=== PATIENT | female | born 1955 | race Caucasian/White ===

== ENCOUNTER 2018-09-20 06:31 | Inpatient (IN) | payer OTHER ==
[2018-09-20 07:10] VITALS: BMI 25.4
--- NOTE | 2018-09-20 07:43 | PDOC ---
Attending Attestation - Resident Resident Name: CamiReba bennett - HPI HPI: 09/20/18 18:00 Pt presents to the ED complaining of temporal headache and epigastric pain that started acutely at 3 am. BELLO improved with tylenol IV. Also complaining of mild epigastric pain with nausea and one episode of vomiting. Denies visual or neurologic complaints. Denies fever. Denies prior headache history. 09/23/18 15:22 - Physicial Exam PE: 09/23/18 15:23 Agree with resident exam. patient is well appearing after IV tylenol, and in no acute distress. Neurologically intact. Abdomen soft, non tender and non distended without guarding or rebound. - Medical Decision Making 09/23/18 15:23 Pt presents to thE ED complaining of headache and epigastric pain. CT head performed to look for intracranial bleed and is negative. Given that she had a negative CT within 6 hours of pain onset and that her pain resolved with IV tylenol, subarachnoid is unlikely. Also complaining of epigastric pain, without abdominal tenderness. Biliary labs and lipase were negative, but patient did have an elevated troponin. EKG is normal. Will admit to medicine for NSTEMI.
[2018-09-20] MEDS ORDERED: ONDANSETRON 4 MG/2 ML VIAL IVPB ONE (07:57)
[2018-09-20] MEDS ORDERED: SODIUM CHLORIDE 1,000 ML IV STA (07:57)
[2018-09-20] MEDS ORDERED: ACETAMINOPHEN 1000 MG/100 ML VIAL (NON FORMULARY) IVPB ONE (07:57)
--- NOTE | 2018-09-20 08:05 | PDOC ---
History of Present Illness - General Chief Complaint: Headache Stated Complaint: HEADACHE Time Seen by Provider: 09/20/18 07:39 History Source: Patient, Family (grandson) Exam Limitations: Language Barrier - History of Present Illness Initial Comments: 09/20/18 08:04 63yo F with PMH of HTN, DM, HLD presenting to ED with complaints of R sided BELLO, abdominal pain, n/v x5h. Pt states that she started having the pain at around 3am today. She says the headache and abdominal pain started at around the same time. The headache is R sided, worsened by light and eye movements and the abdominal pain the patient describes as epigastric and lower abdomen which does not radiate. Shes states that she is usually constipated, last BM was last night (non bloody, no melena). She denies fevers, chills, weightloss, cough, chest pain, sob, changes in vision, numbness/tingling. PMD: Matthew PMH: see hpi PSH: Meds: Allergies: nkda Past History - Past Medical History Allergies/Adverse Reactions: Allergies Allergy/AdvReac Type Severity Reaction Status Date / Time No Known Allergies Allergy Verified 09/20/18 07:10 Home Medications: Ambulatory Orders Amlodipine Besylate 5 mg PO DAILY 09/20/18 Aspirin [ASA -] 81 mg PO DAILY 09/20/18 Empagliflozin [Jardiance] 25 mg PO DAILY 09/20/18 Sitagliptin Phos/Metformin HCl [Janumet 50-500 mg Tablet] 1 each PO DAILY Telmisartan 80 mg PO DAILY 09/20/18 COPD: No Diabetes: Yes HTN: Yes - Suicide/Smoking/Psychosocial Hx Smoking History: Never smoked Have you smoked in the past 12 months: No Information on smoking cessation initiated: No Hx Alcohol Use: No Drug/Substance Use Hx: No Review of Systems - Review of Systems Constitutional: No: Chills, Fever, Weakness HEENTM: Yes: See HPI. No: Eye Pain, Blurred Vision, Double Vision Respiratory: No: Symptoms reported Cardiac (ROS): No: Symptoms Reported ABD/GI: Yes: See HPI : No: Symptoms Reported Musculoskeletal: No: Symptoms Reported Integumentary: No: Symptoms Reported Neurological: Yes: See HPI, Headache *Physical Exam - Vital Signs Last Vital Signs Temp Pulse Resp BP Pulse Ox 99.1 F 76 18 153/75 99 09/20/18 06:35 09/20/18 06:35 09/20/18 06:35 09/20/18 06:35 09/20/18 07:31 - Physical Exam General Appearance: Yes: Nourished, Appropriately Dressed, Mild Distress HEENT: positive: EOMI, KYLAH, Normal ENT Inspection, Other (R voodoo ttp) Neck: positive: Trachea midline, Supple. negative: Carotid bruit, Lymphadenopathy (R), Lymphadenopathy (L) Respiratory/Chest: positive: Lungs Clear, Normal Breath Sounds Cardiovascular: positive: Regular Rhythm, Regular Rate, S1, S2. negative: Edema , JVD, Murmur Vascular Pulses: Dorsalis-Pedis (R): 2+, Doralis-Pedis (L): 2+ Gastrointestinal/Abdominal: positive: Normal Bowel Sounds, Soft, Tenderness ( epigastric, llq) Musculoskeletal: negative: CVA Tenderness, Vertebral Tenderness Extremity: positive: Normal Capillary Refill, Pelvis Stable. 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 Pt states that she started having the pain at around 3am today. She says the headache and abdominal pain started at around the same time. The headache is R sided, worsened by light and eye movements and the abdominal pain the patient describes as epigastric and lower abdomen which does not radiate. Shes states that she is usually constipated, last BM was last night (non bloody, no melena). She denies fevers, chills, weightloss, cough, chest pain, sob, changes in vision, numbness/tingling. Vitals: wnl PE: epigstric and LLQ tenderness, no rebound, R voodoo ttp PERRL, no neurological deficits Ddx includes but not limited to GCA, atypical ACS, cholecystitis, mass/ malignancy, pancreatitis, gastroparesis, pud, gastritis, migraine bello, cluster bello , constipation, diverticulosis/diverticulitis, electrolyte/metabolic abnormality BELLO and abdominal pain could be due to same or separate disease process, do not know if abdominal pain is causing headache or vice versa. Will order abdominal labs, crp, esr. -CT head -iv fluids, tylenol, zofran EKG: Rate 71, MD 128, QTc 458. NSR. T wave flattening in all leads. No prior to compare to Will reassess 09/20/18 10:29 Trop 0.06. Still complaining of headache. will give 325mg ASA reasses. Could be having atypical aCS presentation. No prior ekg or trop to compare to, due to age , pmh and trop and ekg, will admit pt for tele/obs for serial troponin and ekg rpt trop 0.07, rpt ekg does not show changes. cardiology consulted. *DC/Admit/Observation/Transfer Diagnosis at time of Disposition: Elevated troponin I level Headache Qualifiers: Headache type: unspecified Headache chronicity pattern: acute headache Intractability: not intractable Qualified Code(s): R51 - Headache - Discharge Dispostion Condition at time of disposition: Fair - Referrals - Patient Instructions - Post Discharge Activity
[2018-09-20] MEDS ORDERED: ACETAMINOPHEN INJECTION 100 ML IVPB ONE (08:06)
[2018-09-20] MEDS ORDERED: ONDANSETRON 4 MG/2 ML VIAL ONE (08:06)
[2018-09-20 08:46] LABS: BASO % 0.6 % (0-2.0); EOS % 0.1 % (0-4.5); HEMATOCRIT 45.9 % (32.4-45.2); HEMOGLOBIN 15.4 GM/dL (10.7-15.3); LYMPH % 9.5 % (8-40); MCH 28.1 pg (25.7-33.7); MCHC 33.6 g/dl (32.0-36.0); MEAN CELL VOLUME 83.5 fl (80-96); MEAN PLT VOLUME 9.1 fl (7.5-11.1); MONO % 3.9 % (3.8-10.2); NEUT % 85.9 % (42.8-82.8); PLATELET COUNT 303 K/MM3 (134-434); RDW 13.2 % (11.6-15.6); WHITE BLOOD COUNT 15.6 K/mm3 (4.0-10.0)
[2018-09-20 09:24] LABS: ALK PHOS 135 U/L (45-117); ANION GAP 10 MMOL/L (8-16); BILIRUBIN,TOTAL 0.5 mg/dL (0.2-1); CALCIUM 9.8 mg/dL (8.5-10.1); CHLORIDE 104 mmol/L (98-107); CO2 23 mmol/L (21-32); CREATININE 0.8 mg/dL (0.55-1.3); GLUCOSE,RANDOM 200 mg/dL (74-106); POTASSIUM 4.5 mmol/L (3.5-5.1); SGOT/AST 26 U/L (15-37); SGPT/ALT 37 U/L (13-61); SODIUM 137 mmol/L (136-145); TOT PROT 8.4 g/dl (6.4-8.2)
[2018-09-20] MEDS ORDERED: ASPIRIN 325 MG TABLET PO ONE (09:58)
[2018-09-20] MEDS ORDERED: ASPIRIN 325 MG ENTERIC COATED TABLET (FP) ONE (10:51)
--- NOTE | 2018-09-20 11:57 | PDOC ---
Documentation entered by Tico Feliz SCRIBE, acting as scribe for Janet Almaraz MD. Janet Almaraz MD: This documentation has been prepared by the Tray smith Joel, SCRIBE, under my direction and personally reviewed by me in its entirety. I confirm that the documentation accurately reflects all work, treatment, procedures, and medical decision making performed by me. Attending Attestation - Resident Resident Name: CamiReba - [facility] HPI: 09/20/18 10:03 The patient is a 63 year old female with a significant PMH of HTN, hyperlipidemia, and DM who presents to the emergency department for evaluation of nausea, vomiting, and headache beginning approximately 7 hours ago. She describes her abdominal pain as localized in the epigastric and lower regions with no radiation. She describes her headache as a right sided sensation with associated photophobia. The patient denies chest pain, shortness of breath, and dizziness. Denies fever, chills, diarrhea and constipation. Denies dysuria, frequency, urgency and hematuria. Allergies: NKA Past surgical history: . Social history: No reported cigarette, alcohol, or drug use. PCP: Dr. Sandor Castro - Physicial Exam PE: 09/20/18 10:58 Agree with resident exam. patient is alert and in no acute distress. Neurologically intact. Abdomen soft, non tender, non distended. CV: rrr no m/r/ g - Medical Decision Making 09/20/18 11:07 Pt presents to the ED complaining of temporal headache and epigastric pain. Initial differential included intracranial bleed,
--- NOTE | 2018-09-20 13:42 | HP ---
CHIEF COMPLAINT: Headache, n/v, abd pain PCP: Dr Sandor Castro- [phone] HISTORY OF PRESENT ILLNESS: Pt is a 63 yo F with PMHx of HTN, HLD, DM, migraine, constipation, PAD, presenting from home with headache, n/v, epigastric pain since 3am today. Pt reports R sided constant headache with associated photophobia, then n and several episodes of vomiting today. Pt also had epigastric pain after the onset of the vomiting which has since subsided. No fevers, no chills. No hematemesis or hematochezia. Last bowel movement today, of brown, non bloody hard stools. Pt follows a chemist organic Dr Uri Benoit, and was worked up in past- nl echo ( August 21 2017), Carotid duplex L occlusion 20%, EKG Feb 2018 nl, Renal US-nl, RLE arterial duplex- Jan 2018 20% occlusion. Pt reports migraines in past relieved with ASA. Last time she had headache as severe was year 1999, when she was kept like overnight and discharged after she felt better with injections. Pt reports exercising regularly, with independent ADLs. Denies smoking, or alcohol. Pt had normal mammogram July 2017, never had colonosocopy or endoscopy. ED D/W Dr Gavin who wants patient admitted for ACS evaluation. ER course was notable for: (1) ASA 324, NS 1L (2) Trops- 0.06>>0.07 (3) WBC-15.6, H/H-15.4/ Recent Travel: Denies recent travel PAST MEDICAL HISTORY: HTN, HLD, DM, migraine, constipation, PAD PAST SURGICAL HISTORY: C/Sction >30 years, appendectomy >30yrs Social History: Smoking: Alcohol: Drugs: Family History: Allergies No Known Allergies Allergy (Verified 09/20/18 07:10) HOME MEDICATIONS: Home Medications Medication Instructions Recorded Alogliptin Clarence/Metformin HCl 1 each PO BID 09/20/18 [Kazano 12.5-500 mg Tablet] Amlodipine Besylate 5 mg PO DAILY 09/20/18 Aspirin [ASA -] 81 mg PO DAILY 09/20/18 Gemfibrozil 600 mg PO DAILY 09/20/18 Insulin Glargine,Hum.rec.anlog 30 unit SQ DAILY 09/20/18 [Perla Messer U-100] Losartan Potassium 100 mg PO 09/20/18 REVIEW OF SYSTEMS CONSTITUTIONAL: Absent: fever, chills, diaphoresis, generalized weakness, malaise, loss of appetite, weight change HEENT: Absent: rhinorrhea, nasal congestion, throat pain, throat swelling, difficulty swallowing, mouth swelling, ear pain, eye pain, visual changes CARDIOVASCULAR: Absent: chest pain, syncope, palpitations, irregular heart rate, lightheadedness , peripheral edema RESPIRATORY: Absent: cough, shortness of breath, dyspnea with exertion, orthopnea, wheezing, stridor, hemoptysis GASTROINTESTINAL:abdominal pain+, nausea+, vomiting+, Absent: abdominal distension, diarrhea, constipation+, melena, hematochezia GENITOURINARY: Absent: dysuria, frequency, urgency, hesitancy, hematuria, flank pain, genital pain MUSCULOSKELETAL: Absent: myalgia, arthralgia, joint swelling, back pain, neck pain SKIN: Absent: rash, itching, pallor HEMATOLOGIC/IMMUNOLOGIC: Absent: easy bleeding, easy bruising, lymphadenopathy, frequent infections ENDOCRINE: Absent: unexplained weight gain, unexplained weight loss, heat intolerance, cold intolerance NEUROLOGIC: headache+ Absent: , focal weakness or paresthesias, dizziness, unsteady gait, seizure, mental status changes, bladder or bowel incontinence PSYCHIATRIC: Absent: anxiety, depression, suicidal or homicidal ideation, hallucinations. PHYSICAL EXAMINATION Vital Signs - 24 hr 09/20/18 09/20/18 06:35 07:31 Temperature 99.1 F Pulse Rate 76 Respiratory 18 Rate Blood Pressure 153/75 O2 Sat by Pulse 98 99 Oximetry (%) GENERAL: Awake, alert, and fully oriented, in no acute distress. Eating lunch HEAD: Normal with no signs of trauma. EYES: Pupils equal, round and reactive to light, extraocular movements intact, sclera anicteric, conjunctiva clear. EARS, NOSE, THROAT: Ears normal, nares patent, oropharynx clear without exudates. Moist mucous membranes. NECK: Normal range of motion, supple without lymphadenopathy, LUNGS: Breath sounds equal, clear to auscultation bilaterally. No wheezes, and no crackles. HEART: Regular rate and rhythm, normal S1 and S2 ABDOMEN: Soft, nontender, not distended, normoactive bowel sounds, JANESSA- external hemorrhoid at 6 0clock position, not thrombosed or bleeding, good anal hygiene, good sphincteric tone, rectal vault without stool, no palpable masses. Gloved finger without stool. MUSCULOSKELETAL: Normal range of motion at all joints. No bony deformities or tenderness. No CVA tenderness. UPPER EXTREMITIES: 2+ pulses, warm, well-perfused. No cyanosis. No clubbing. No peripheral edema. LOWER EXTREMITIES: 2+ pulses, warm, well-perfused. No calf tenderness. No peripheral edema. NEUROLOGICAL: AAO x3, normal tone and reflexes. Plantar reflex downgoing. Cranial nerves II-XII intact. Normal speech. No dysarthria, no dysphasia, no facial droop, no lateralizing signs Laboratory Results - last 24 hr 09/20/18 09/20/18 09/20/18 07:38 07:55 07:55 WBC RBC Hgb Hct MCV MCH MCHC RDW Plt Count MPV Absolute Neuts (auto) Neutrophils % Lymphocytes % Monocytes % Eosinophils % Basophils % Nucleated RBC % ESR 2 Sodium 137 Potassium 4.5 Chloride 104 Carbon Dioxide 23 Anion Gap 10 BUN 14.0 Creatinine 0.8 Est GFR (CKD-EPI)AfAm 91.58 Est GFR (CKD-EPI)NonAf 79.01 Random Glucose 200 H Calcium 9.8 Total Bilirubin 0.5 AST 26 ALT 37 Alkaline Phosphatase 135 H Creatine Kinase 93 Troponin I 0.06 H C-Reactive Protein < 0.3 Total Protein 8.4 H Albumin 4.0 Lipase 66 L Stool Occult Blood 09/20/18 09/20/18 09/20/18 08:15 11:11 13:27 WBC 15.6 H RBC 5.50 H Hgb 15.4 H Hct 45.9 H MCV 83.5 MCH 28.1 MCHC 33.6 RDW 13.2 Plt Count 303 MPV 9.1 Absolute Neuts (auto) 13.4 H Neutrophils % 85.9 H Lymphocytes % 9.5 Monocytes % 3.9 Eosinophils % 0.1 Basophils % 0.6 Nucleated RBC % 0 ESR Sodium Potassium Chloride Carbon Dioxide Anion Gap BUN Creatinine Est GFR (CKD-EPI)AfAm Est GFR (CKD-EPI)NonAf Random Glucose Calcium Total Bilirubin AST ALT Alkaline Phosphatase Creatine Kinase Troponin I 0.07 H C-Reactive Protein Total Protein Albumin Lipase Stool Occult Blood Negative Ambulatory Orders Amlodipine Besylate 5 mg PO DAILY 09/20/18 Aspirin [ASA -] 81 mg PO DAILY 09/20/18 Empagliflozin [Jardiance] 25 mg PO DAILY 09/20/18 Sitagliptin Phos/Metformin HCl [Janumet 50-500 mg Tablet] 1 each PO DAILY Telmisartan 80 mg PO DAILY 09/20/18 ASSESSMENT/PLAN: Pt is a 63 yo F with PMHx of HTN, HLD, DM, migraine, constipation, PAD, presenting from home with headache, n/v, epigastric pain since 3am today. headache Likely migraine headache - unilateral, lasting over 30mins, prior episodes relieved with NSAIDS, this episode relieved with ASA Never formally diagnosed Tylenol Will hold off NSAIDS for now Could be related to nausea and vomiting n/v No more episodes preceeded headache No fever or chills, but WBCs which could be reactive Will monitor CBCs and hold off AB for now Pt reports constipation bit passed stool today and was able to tolerate lunch, not likely bowel obstruction or surgical abdomen Abdoment non tender epigastric pain R/O ACS Pt with high cardiac risk, DM and female could have atypical presentation of chest pain JEAN-PIERRE risk index for ACS-19 (low risk) JEAN-PIERRE score for UA/NSTEMI-2 points (8% risk of all cause mortality, new or recurrent NM or severe recurrent ischemia requiring urgent revascularization) Per pt epigastric pain started after vomiting, will add protonix and maalox PRN trend trops Cardiology follow up ECHO Nuclear stress test Pt may benefit from BB but will hold off in view of stress test Cont ARB, ASA, consider statin HTN Cont home telmisartan HLD Pt reported to have dcd gemfibrozil on her own Will check a lipid in am Will likely benefit from statin DM On janumet and januvia Hold oral hypoglycemics ISS BGM migraine Prior hx May need neuro follow up as out pt constipation Pt not on any laxatives at home Moved bowel today Continue to monitor PAD Per PCP had 20% L carotid occlusion and RLE arterial occlusion 20% FEN No standing fluids- received fluids in ED Monitor lytes, replete as needed Sodium controlled diet now NPO after midnight for possible stress test PPx Lovenox sq PPI/Maalox Tele obs Visit type - Emergency Visit Emergency Visit: Yes ED Registration Date: 09/20/18 Care time: The patient presented to the Emergency Department on the above date and was hospitalized for further evaluation of their emergent condition. - New Patient This patient is new to me today: Yes Date on this admission: 09/20/18 - Critical Care Critical Care patient: No
--- NOTE | 2018-09-20 13:50 | EKG ---
Test Reason : Blood Pressure : / mmHG Vent. Rate : 077 BPM Atrial Rate : 077 BPM P-R Int : 108 ms QRS Dur : 092 ms QT Int : 382 ms P-R-T Axes : 051 018 052 degrees QTc Int : 432 ms SINUS RHYTHM WITH SHORT VT NONSPECIFIC T WAVE ABNORMALITY ABNORMAL ECG WHEN COMPARED WITH ECG OF 20-SEP-2018 07:28, NO SIGNIFICANT CHANGE WAS FOUND Confirmed by MD ALVINA, AFSHAN ([id number]) on 09/20/2018 1:50:12 PM Referred By: Confirmed By:AFSHAN TINSLEY MD
--- NOTE | 2018-09-20 13:52 | EKG ---
Test Reason : Blood Pressure : / mmHG Vent. Rate : 071 BPM Atrial Rate : 071 BPM P-R Int : 128 ms QRS Dur : 088 ms QT Int : 422 ms P-R-T Axes : 067 032 069 degrees QTc Int : 458 ms NORMAL SINUS RHYTHM POSSIBLE LEFT ATRIAL ENLARGEMENT NONSPECIFIC T WAVE ABNORMALITY ABNORMAL ECG WHEN COMPARED WITH ECG OF 27-MAY-2006 11:48, NONSPECIFIC T WAVE ABNORMALITY NOW EVIDENT IN LATERAL LEADS QT HAS LENGTHENED Confirmed by MD ALVINA, AFSHAN ([id number]) on 09/20/2018 1:52:36 PM Referred By: Confirmed By:AFSHAN TINSLEY MD
[2018-09-20] MEDS ORDERED: ACETAMINOPHEN 325 MG TABLET (FP) PO PRN (14:12)
--- NOTE | 2018-09-20 14:38 | PN ---
Teaching Attending Note Name of Resident: Aniyah Schuster ATTENDING PHYSICIAN STATEMENT I saw and evaluated the patient. I reviewed the resident's note and discussed the case with the resident. I agree with the resident's findings and plan as documented with exceptions below. SUBJECTIVE: 63 yof with PMHx of HTN, HLD, NIDDM (prior on insulin, taken off given A1c improved to 8), Migrainous headaches, non obstructive Carotid stenosis, PAD was in her USOH till this AM when woke up with right sided headache, with multiple episodes of non bloody vomiting and epigastric discomfort, more like soreness that started after the vomiting. reports episode similar to her prior migraine headaches, but last one this severe was in 1999. her headache has improved after receiving ASA 325 mg x 1. Epigastric discomfort almost resolved. Exercises for 1 hour on treadmill, twice a week, with no concerns of chest pain or dyspnea. 12 point ROS done, neg for fevers, chills, palpitations, dizziness, dyspnea, or urinary symptoms OBJECTIVE: Vital Signs Period Temp Pulse Resp BP Sys/Puckett Pulse Ox Last 24 Hr 99.1 F 76 18 153/75 98-99 Intake & Output 09/17/18 09/18/18 09/19/18 09/20/18 23:59 23:59 23:59 23:59 Weight 130 lb GENERAL: Awake, alert, and fully oriented, in no acute distress. HEAD: Normal with no signs of trauma. EYES: Pupils equal, round and reactive to light, extraocular movements intact, sclera anicteric, conjunctiva clear. No lid lag. EARS, NOSE, THROAT: Ears normal, nares patent, oropharynx clear without exudates. Moist mucous membranes. NECK: Normal range of motion, supple , no JVD/lymphadenopathy LUNGS: Breath sounds equal, clear to auscultation bilaterally. No wheezes, and no crackles. No accessory muscle use. HEART: Regular rate and rhythm, normal S1 and S2 , no rub or murmur appreciated ABDOMEN: Soft, nontender, not distended, normoactive bowel sounds, no guarding, no rebound, no masses. No hepatomegaly or splenomegaly apprecited. MUSCULOSKELETAL: Normal range of motion at all joints. No bony deformities or tenderness. No CVA tenderness. UPPER EXTREMITIES: 2+ pulses, warm, well-perfused. No cyanosis. No clubbing. No peripheral edema. LOWER EXTREMITIES: 2+ pulses, warm, well-perfused. No calf tenderness. No peripheral edema. NEUROLOGICAL: AAOx3, PERRL, EOMI, Power 5/5, sensation intact and symmetrical, no pronator drift, DTR bilaterally symmetric, toes downgoing, Cranial nerves II- XII intact. Normal speech. gait not observed PSYCHIATRIC: Cooperative. Good eye contact. Appropriate mood and affect. SKIN: Warm, dry, normal turgor, no rashes or lesions noted, normal capillary refill. Home Medications Medication Instructions Recorded Alogliptin Clarence/Metformin HCl 1 each PO BID 09/20/18 [Kazano 12.5-500 mg Tablet] Amlodipine Besylate 5 mg PO DAILY 09/20/18 Aspirin [ASA -] 81 mg PO DAILY 09/20/18 Gemfibrozil 600 mg PO DAILY 09/20/18 Insulin Glargine,Hum.rec.anlog 30 unit SQ DAILY 09/20/18 [Basaglar Kwikpen U-100] Losartan Potassium 100 mg PO 09/20/18 Active Medications Acetaminophen (Tylenol -) 650 mg PO Q6H PRN PRN Reason: PAIN 1-3 Al Hydroxide/Mg Hydroxide (Mylanta Oral Suspension -) 30 ml PO Q6H PRN PRN Reason: DYSPEPSIA Enoxaparin Sodium (Lovenox -) 40 mg SQ DAILY JUAN Insulin Aspart (Novolog Vial Sliding Scale -) 1 vial SQ ACHS [facility]; Protocol Pantoprazole Sodium (Protonix -) 40 mg PO DAILY [facility] Laboratory Results - last 24 hr 09/20/18 09/20/18 09/20/18 07:38 07:55 07:55 WBC RBC Hgb Hct MCV MCH MCHC RDW Plt Count MPV Absolute Neuts (auto) Neutrophils % Lymphocytes % Monocytes % Eosinophils % Basophils % Nucleated RBC % ESR 2 Sodium 137 Potassium 4.5 Chloride 104 Carbon Dioxide 23 Anion Gap 10 BUN 14.0 Creatinine 0.8 Est GFR (CKD-EPI)AfAm 91.58 Est GFR (CKD-EPI)NonAf 79.01 Random Glucose 200 H Calcium 9.8 Total Bilirubin 0.5 AST 26 ALT 37 Alkaline Phosphatase 135 H Creatine Kinase 93 Troponin I 0.06 H C-Reactive Protein < 0.3 Total Protein 8.4 H Albumin 4.0 Lipase 66 L Stool Occult Blood 09/20/18 09/20/18 09/20/18 08:15 11:11 13:27 WBC 15.6 H RBC 5.50 H Hgb 15.4 H Hct 45.9 H MCV 83.5 MCH 28.1 MCHC 33.6 RDW 13.2 Plt Count 303 MPV 9.1 Absolute Neuts (auto) 13.4 H Neutrophils % 85.9 H Lymphocytes % 9.5 Monocytes % 3.9 Eosinophils % 0.1 Basophils % 0.6 Nucleated RBC % 0 ESR Sodium Potassium Chloride Carbon Dioxide Anion Gap BUN Creatinine Est GFR (CKD-EPI)AfAm Est GFR (CKD-EPI)NonAf Random Glucose Calcium Total Bilirubin AST ALT Alkaline Phosphatase Creatine Kinase Troponin I 0.07 H C-Reactive Protein Total Protein Albumin Lipase Stool Occult Blood Negative EKG, NSR, short MS interval Flattened T waves in V4-V6, I/aVL Repeat EKG unchanged CT brain results reivewed, old left thalamic infarct ASSESSMENT AND PLAN: 63 yof with PMHx of HTN, HLD, NIDDM (prior on insulin, taken off given A1c improved to 8), Migrainous headaches, non obstructive Carotid stenosis, PAD admitted with right sided headache, vomiting and epigastric discomfort with borderline elevated troponin -Epigstric pain -Right sided headache -Borderline troponin -Leucocytosis, stress from above, no focal s/s concerning for infection. -Chronic left thalamic CVA -HTN -HLD -NIDDM -Non obstructive Carotid stenosis/PAD Plan: Epigastric symptoms started after vomitting, making gastritis likely. However patient with borderline troponin, risk factors and known evidence of atherosclerotic vascular disease. EKG with lateral changes, that have been unchanged and Tn unchanged x 2. Will continue with tele monitoring, repeat trop. Cardiology consult, Dr. Gavin consulted from the ED. 2D echo, Stress test. Anticipate low threshold for cardiac cath, if further elevation in cardiac biomarkers, EKG changes or abnormal stress test noted. Continue ASA/ARB. Check lipid panel. Will likely benefit from beta blockers but will hold pending stress test. NSAIDs prn for migraines. Trend WBC. Hold jardiance, janumet. ISS, diabetic diet. PPI/maalox/Zofran DVTPPX lovenox Dispo pending clinical course and above testing. Plan discussed with patient in detail, all questions answered. Total admit time spent 65 min.
[2018-09-20] MEDS: PANTOPRAZOLE 40 MG TABLET (FP) PO SCH (14:40)
[2018-09-20] MEDS ORDERED: MAG HYDROX/AL HYDROX/SIMETH 30 ML UNIT-DOSE CUP PO PRN (14:41)
[2018-09-20] MEDS: ENOXAPARIN NA (PORCINE) 40 MG/0.4 ML DISP.SYRIN SQ SCH (14:50)
[2018-09-20] MEDS ORDERED: INSULIN (NOVOLOG) ASPART 100 UNITS/ML 10ML VIAL ONE ×2 (14:52→21:05)
[2018-09-20] MEDS ORDERED: PANTOPRAZOLE 40 MG TABLET (FP) ONE (15:00)
[2018-09-20] MEDS ORDERED: ENOXAPARIN NA (PORCINE) 40 MG/0.4 ML DISP.SYRIN SQ ONE (15:01)
[2018-09-20] MEDS ORDERED: ONDANSETRON 4 MG/2 ML VIAL IVPUSH PRN (15:02)
[2018-09-20] MEDS ORDERED: SODIUM CHLORIDE 1,000 ML IV SCH (15:15)
[2018-09-20] MEDS: INSULIN SLIDING SCALE (NOVOLOG) 1 VIAL SQ SCH ×2 (16:48→21:09)
[2018-09-20] MEDS ORDERED: ASPIRIN 81 MG CHEWABLE TABLETS PO SCH (17:45)
[2018-09-20] MEDS: VALSARTAN 160 MG TABLET (UD) PO SCH (18:52)
[2018-09-20] MEDS: amLODIPine BESYLATE 5 MG TABLET (FP) PO SCH (18:52)
[2018-09-21] MEDS: INSULIN SLIDING SCALE (NOVOLOG) 1 VIAL SQ SCH ×4 (06:06→21:23)
[2018-09-21 07:48] LABS: BASO % 0.7 % (0-2.0); HEMATOCRIT 42.9 % (32.4-45.2); HEMOGLOBIN 14.3 GM/dL (10.7-15.3); MCH 28.4 pg (25.7-33.7); MCHC 33.3 g/dl (32.0-36.0); MEAN CELL VOLUME 85.1 fl (80-96); MEAN PLT VOLUME 9.4 fl (7.5-11.1); MONO % 7.8 % (3.8-10.2); NEUT % 55.5 % (42.8-82.8); PLATELET COUNT 249 K/MM3 (134-434); RBC 5.04 M/mm3 (3.60-5.2); RDW 13.2 % (11.6-15.6); WHITE BLOOD COUNT 8.6 K/mm3 (4.0-10.0)
[2018-09-21 08:30] LABS: BLOOD UREA NITROGEN 11.9 mg/dL (7-18); CALCIUM 8.7 mg/dL (8.5-10.1); CREATININE 0.6 mg/dL (0.55-1.3); MAGNESIUM 2.2 mg/dL (1.8-2.4); PHOSPHOROUS 2.9 mg/dL (2.5-4.9); POTASSIUM 3.9 mmol/L (3.5-5.1)
[2018-09-21] MEDS ORDERED: REGADENOSON 0.4 MG/5 ML PRE-FILLED SYRINGE IVPUSH ONE (09:30)
[2018-09-21] MEDS ORDERED: ASPIRIN 325 MG TABLET PO SCH (10:00)
--- NOTE | 2018-09-21 10:08 | CON.CARD ---
Consult Consult Specialty:: Cardiology - History of Present Illness Chief Complaint: alfonso epigastric discomfort History of Present Illness: 63 yof with PMHx of HTN, HLD, NIDDM (prior on insulin, taken off given A1c improved to 8), Migrainous headaches, non obstructive Carotid stenosis, PAD was in her USOH till this AM when woke up with right sided headache, with multiple episodes of non bloody vomiting and epigastric discomfort, more like soreness that started after the vomiting. reports episode similar to her prior migraine headaches, but last one this severe was in 1999. her headache has improved after receiving ASA 325 mg x 1. Epigastric discomfort almost resolved. Exercises for 1 hour on treadmill, twice a week, with no concerns of chest pain or dyspnea. 12 point ROS done, neg for fevers, chills, palpitations, dizziness, dyspnea, or urinary symptoms - Alcohol/Substance Use Hx Alcohol Use: No - Smoking History Smoking history: Never smoked Have you smoked in the past 12 months: No Home Medications - Allergies Allergies/Adverse Reactions: Allergies Allergy/AdvReac Type Severity Reaction Status Date / Time No Known Allergies Allergy Verified 09/20/18 07:10 - Home Medications Home Medications: Ambulatory Orders Amlodipine Besylate 5 mg PO DAILY 09/20/18 Aspirin [ASA -] 81 mg PO DAILY 09/20/18 Empagliflozin [Jardiance] 25 mg PO DAILY 09/20/18 Sitagliptin Phos/Metformin HCl [Janumet 50-500 mg Tablet] 1 each PO DAILY Telmisartan 80 mg PO DAILY 09/20/18 Review of Systems - Review of Systems Constitutional: reports: No Symptoms Eyes: reports: No Symptoms HENT: reports: No Symptoms Neck: reports: No Symptoms Cardiovascular: reports: No Symptoms Respiratory: reports: No Symptoms Gastrointestinal: reports: No Symptoms Genitourinary: reports: No Symptoms Breasts: reports: No Symptoms Reported Musculoskeletal: reports: No Symptoms Integumentary: reports: No Symptoms Neurological: reports: Headache Endocrine: reports: No Symptoms Hematology/Lymphatic: reports: No Symptoms Psychiatric: reports: No Symptoms Vital Signs: Vital Signs Temperature 98.1 F 09/21/18 06:20 Pulse Rate 71 09/21/18 06:20 Respiratory Rate 17 09/21/18 06:20 Blood Pressure 135/66 09/21/18 06:20 O2 Sat by Pulse Oximetry (%) 99 09/21/18 06:20 Constitutional: Yes: Well Nourished, No Distress, Calm Eyes: Yes: WNL, Conjunctiva Clear, EOM Intact HENT: Yes: WNL, Atraumatic, Normocephalic Neck: Yes: WNL, Supple, Trachea Midline Respiratory: Yes: WNL, Regular, CTA Bilaterally Gastrointestinal: Yes: WNL, Normal Bowel Sounds Renal/: Yes: WNL Cardiovascular: Yes: WNL, Regular Rate and Rhythm Musculoskeletal: Yes: WNL Extremities: Yes: WNL Integumentary: Yes: WNL Neurological: Yes: WNL, Alert, Oriented ...Motor Strength: WNL Psychiatric: Yes: WNL, Alert, Oriented - Other Data Labs, Other Data: CBC, BMP 09/21/18 06:53 09/21/18 06:53 Troponin, BNP 09/20/18 09/20/18 11:11 17:00 Troponin I 0.07 H 0.04 Troponin, BNP 09/20/18 09/20/18 11:11 17:00 Troponin I 0.07 H 0.04 Imaging - Results Chest X-ray: Image Reviewed (no i/e) EKG: Image Reviewed (sr short pr) Problem List - Problems (1) Elevated troponin I level Code(s): R74.8 - ABNORMAL LEVELS OF OTHER SERUM ENZYMES (2) Headache Code(s): R51 - HEADACHE Qualifiers: Headache type: unspecified Headache chronicity pattern: acute headache Intractability: not intractable Qualified Code(s): R51 - Headache Assessment/Plan ASSESSMENT AND PLAN: 63 yof with PMHx of HTN, HLD, NIDDM (prior on insulin, taken off given A1c improved to 8), Migrainous headaches, non obstructive Carotid stenosis, PAD admitted with right sided headache, vomiting and epigastric discomfort with borderline elevated troponin -Epigstric pain -Right sided headache -Borderline troponin -Leucocytosis, stress from above, no focal s/s concerning for infection. -Chronic left thalamic CVA -HTN -HLD -NIDDM -Non obstructive Carotid stenosis/PAD ECHO wnol mibi st moderate sized moderate intensity anterior wall ischemia. Will need c. cath ASA /Plavix/bb
--- NOTE | 2018-09-21 11:52 | ECHO ---
Name: ALISA COLEMANABEL Exam:Adult Echocardiogram Study Date: 09/21/2018 08:04 AM Age: 63 yrs Reason For Study: r/o acs Height: 60 in Weight: 130 lb BSA: 1.6 m2 MMode/2D Measurements & Calculations IVSd: 0.97 cm Ao root diam: 2.2 cm LVIDd: 3.7 cm LA dimension: 2.8 cm LVIDs: 2.2 cm LVPWd: 1.0 cm EDV(Teich): 57.2 ml LVOT diam: 2.0 cm ESV(Teich): 15.8 ml LAV (MOD-bp): 27.0 ml Doppler Measurements & Calculations MV E max oscar: 72.7 cm/sec Ao V2 max: 131.7 cm/sec MV A max oscar: 110.5 cm/sec Ao max P.9 mmHg MV E/A: 0.66 MV dec time: 0.17 sec GABI(V,D): 1.9 cm2 LV V1 max P.8 mmHg TR max oscar: 194.8 cm/sec LV V1 max: 82.9 cm/sec TR max P.4 mmHg PA V2 max: 78.7 cm/sec Med Peak E' Oscar: 5.9 cm/sec PA max P.5 mmHg Med E/e': 12.4 Lat Peak E' Oscar: 4.8 cm/sec Lat E/e': 15.2 PI Vmax: 122.2 cm/sec Procedure A two-dimensional transthoracic echocardiogram with color flow and Doppler was performed. Left Ventricle The left ventricular size, thickness and function are normal. The left ventricular ejection fraction is normal. E/A reversal consistent with but not diagnostic of poor LV compliance. The left ventricular w all motion is normal. Right Ventricle The right ventricle is normal in size and function. Atria Normal left and right atrial size and function. Mitral Valve There is mild mitral valve thickening. There is no mitral valve stenosis. There is trace to mild mitr al regurgitation. Tricuspid Valve There is mild tricuspid valve thickening. There is no tricuspid stenosis. There is mild tricuspid regurgitation. Right ventricular systolic pressure is normal. Aortic Valve The aortic valve is normal in structure and function. No hemodynamically significant valvular aortic stenosis. No aortic regurgitation is present. Pulmonic Valve The pulmonic valve is not well visualized. There is no pulmonic valvular stenosis. Trace pulmonic wilma vular regurgitation. Great Vessels The aortic root is normal size. Pericardium/Pleura There is no pericardial effusion. Interpretation Summary The left ventricular size, thickness and function are normal The left ventricular ejection fraction is normal. The left ventricular wall motion is normal. There is trace to mild mitral regurgitation. There is mild tricuspid regurgitation. Right ventricular systolic pressure is normal. E/A reversal consistent with but not diagnostic of poor LV compliance MD Darrius Gavin 09/21/2018 11:51 AM
[2018-09-21] MEDS: VALSARTAN 160 MG TABLET (UD) PO SCH (13:22)
[2018-09-21] MEDS: amLODIPine BESYLATE 5 MG TABLET (FP) PO SCH (13:23)
[2018-09-21] MEDS: ENOXAPARIN NA (PORCINE) 40 MG/0.4 ML DISP.SYRIN SQ SCH (13:23)
[2018-09-21] MEDS: PANTOPRAZOLE 40 MG TABLET (FP) PO SCH (13:24)
[2018-09-21] MEDS: CLOPIDOGREL BISULFATE 75 MG TABLET (FP) PO SCH (16:40)
[2018-09-21] MEDS: metoPROLOL SUCCINATE 25 MG TAB.SR.24H (FP) PO SCH (16:41)
--- NOTE | 2018-09-21 17:22 | PN ---
Physical Exam: SUBJECTIVE: Patient seen and examined after ECHO and nuclear test. Pt not short of breath, no chest pain, having lunch. OBJECTIVE: Vital Signs Period Temp Pulse Resp BP Sys/Puckett Pulse Ox Last 24 Hr 98.1 F-98.6 F 71-82 17-22 116-135/56-74 98-99 Vital Signs Temp 98.5 F 09/21/18 15:58 Pulse 78 09/21/18 15:58 Resp 22 H 09/21/18 15:58 BP 118/69 09/21/18 15:58 Pulse Ox 98 09/21/18 14:01 Intake & Output 09/20/18 09/21/18 09/21/18 23:59 11:59 23:59 Intake Total 1460 1140 150 Balance 1460 1140 150 Weight 58.967 kg Intake: IV 820 900 150 Normal Saline - 1,000 ml 820 900 150 @ 75 mls/hr IV ASDIR JUAN Rx#:[id number] IVPB 100 Oral 540 240 Other: Voiding Method Toilet Toilet Toilet # Unmeasured Voids Void 2 2 Height 1.52 m Body Mass Index (BMI) 25.4 GENERAL: The patient is awake, alert, and fully oriented, in no acute distress. EYES: PERRL, extraocular movements intact, ENT: moist mucous membranes. NECK: supple. LUNGS: Breath sounds equal, clear to auscultation bilaterally, no wheezes, no crackles HEART: Regular rate and rhythm, S1, S2 ABDOMEN: Soft, nontender, nondistended, normoactive bowel sounds EXTREMITIES: 2+ pulses, warm, well-perfused, no edema. NEUROLOGICAL: Cranial nerves II through XII grossly intact. Normal speech, gait not observed. CBC, BMP 09/21/18 06:53 09/21/18 06:53 Laboratory Results - last 24 hr 09/20/18 09/20/18 09/21/18 17:00 20:58 05:50 WBC RBC Hgb Hct MCV MCH MCHC RDW Plt Count MPV Absolute Neuts (auto) Neutrophils % Lymphocytes % Monocytes % Eosinophils % Basophils % Nucleated RBC % Sodium Potassium Chloride Carbon Dioxide Anion Gap BUN Creatinine Est GFR (CKD-EPI)AfAm Est GFR (CKD-EPI)NonAf POC Glucometer 176 171 Random Glucose Hemoglobin A1c % Calcium Phosphorus Magnesium Troponin I 0.04 Triglycerides Cholesterol Total LDL Cholesterol HDL Cholesterol 09/21/18 09/21/18 09/21/18 06:53 06:53 06:53 WBC 8.6 RBC 5.04 Hgb 14.3 Hct 42.9 MCV 85.1 MCH 28.4 MCHC 33.3 RDW 13.2 Plt Count 249 MPV 9.4 Absolute Neuts (auto) 4.8 Neutrophils % 55.5 D Lymphocytes % 35.0 D Monocytes % 7.8 D Eosinophils % 1.0 D Basophils % 0.7 Nucleated RBC % 0 Sodium 138 Potassium 3.9 Chloride 110 H Carbon Dioxide 21 Anion Gap 6 L BUN 11.9 Creatinine 0.6 Est GFR (CKD-EPI)AfAm 113.22 Est GFR (CKD-EPI)NonAf 97.69 POC Glucometer Random Glucose 167 H Hemoglobin A1c % 7.9 H Calcium 8.7 Phosphorus 2.9 Magnesium 2.2 Troponin I Triglycerides 327 H Cholesterol 280 H Total LDL Cholesterol 191 H HDL Cholesterol 42 09/21/18 13:19 WBC RBC Hgb Hct MCV MCH MCHC RDW Plt Count MPV Absolute Neuts (auto) Neutrophils % Lymphocytes % Monocytes % Eosinophils % Basophils % Nucleated RBC % Sodium Potassium Chloride Carbon Dioxide Anion Gap BUN Creatinine Est GFR (CKD-EPI)AfAm Est GFR (CKD-EPI)NonAf POC Glucometer 150 Random Glucose Hemoglobin A1c % Calcium Phosphorus Magnesium Troponin I Triglycerides Cholesterol Total LDL Cholesterol HDL Cholesterol Active Medications Generic Name Dose Route Start Last Admin Trade Name Freq PRN Reason Stop Dose Admin Acetaminophen 650 mg 09/20/18 14:12 Tylenol - PO Q6H PRN PAIN 1-3 Al Hydroxide/Mg Hydroxide 30 ml 09/20/18 14:41 Mylanta Oral Suspension - PO Q6H PRN DYSPEPSIA Amlodipine Besylate 5 mg 09/20/18 17:45 09/21/18 13:23 Norvasc - PO 5 mg DAILY JUAN Administration Aspirin 81 mg 09/22/18 10:00 Asa - PO DAILY [facility] Clopidogrel Bisulfate 75 mg 09/21/18 15:15 09/21/18 16:40 Plavix - PO 75 mg DAILY JUAN Administration Enoxaparin Sodium 40 mg 09/20/18 14:15 09/21/18 13:23 Lovenox - SQ Not Given DAILY JUAN Insulin Aspart 1 vial 09/20/18 16:30 09/21/18 13:20 Novolog Vial Sliding Scale - SQ Not Given ACHS JUAN Protocol Metoprolol Succinate 25 mg 09/21/18 15:15 09/21/18 16:41 Toprol Xl - PO 25 mg DAILY [facility] Administration Ondansetron HCl 4 mg 09/20/18 15:02 Zofran Injection IVPUSH Q6H PRN NAUSEA AND/OR VOMITING Pantoprazole Sodium 40 mg 09/20/18 14:45 09/21/18 13:24 Protonix - PO 40 mg DAILY [facility] Administration Valsartan 320 mg 09/20/18 17:45 09/21/18 13:22 Diovan - PO 320 mg DAILY [facility] Administration Ambulatory Orders Amlodipine Besylate 5 mg PO DAILY 09/20/18 Aspirin [ASA -] 81 mg PO DAILY 09/20/18 Empagliflozin [Jardiance] 25 mg PO DAILY 09/20/18 Sitagliptin Phos/Metformin HCl [Janumet 50-500 mg Tablet] 1 each PO DAILY Telmisartan 80 mg PO DAILY 09/20/18 Current Medications Acetaminophen (Tylenol -) 650 mg PO Q6H PRN PRN Reason: PAIN 1-3 Al Hydroxide/Mg Hydroxide (Mylanta Oral Suspension -) 30 ml PO Q6H PRN PRN Reason: DYSPEPSIA Amlodipine Besylate (Norvasc -) 5 mg PO DAILY [facility] Last Admin: 09/21/18 13:23 Dose: 5 mg Aspirin (Asa -) 81 mg PO DAILY [facility] Atorvastatin Calcium (Lipitor -) 80 mg PO HS [facility] Clopidogrel Bisulfate (Plavix -) 75 mg PO DAILY [facility] Last Admin: 09/21/18 16:40 Dose: 75 mg Enoxaparin Sodium (Lovenox -) 40 mg SQ DAILY [facility] Last Admin: 09/21/18 13:23 Dose: Not Given Insulin Aspart (Novolog Vial Sliding Scale -) 1 vial SQ [facility]; Protocol Last Admin: 09/21/18 13:20 Dose: Not Given Metoprolol Succinate (Toprol Xl -) 25 mg PO DAILY [facility] Last Admin: 09/21/18 16:41 Dose: 25 mg Ondansetron HCl (Zofran Injection) 4 mg IVPUSH Q6H PRN PRN Reason: NAUSEA AND/OR VOMITING Pantoprazole Sodium (Protonix -) 40 mg PO DAILY [facility] Last Admin: 09/21/18 13:24 Dose: 40 mg Valsartan (Diovan -) 320 mg PO DAILY JUAN Last Admin: 09/21/18 13:22 Dose: 320 mg ECHO-LVsize, thickness and fn-nl. LVEFnl. LVWM is nl. Trace to mild MR. RVSP nl. E/A reversal is consistent with but not diagnostic of poor LV compliance Stress test-reversible anterior ischemia. Pt needs cath ASSESSMENT/PLAN: Pt is a 63 yo F with PMHx of HTN, HLD, DM, migraine, constipation, PAD, presenting from home with headache, n/v, epigastric pain since 3am today. #ACS Pt with reversible anterior wall motion abnormality For cardiac cath likely Wednesday Pt started on DAPT Started on high intensity statin Cont BB, ARB #headache Resolved Likely migraine headache Changed from full dose ASA to ASA 81 with plavix Tylenol #n/v resolved could be related to ACS/ headache zofran prn #epigastric pain R/O ACS Pain resolved Pt with high cardiac risk, DM and female could have atypical presentation of chest pain JEAN-PIERRE risk index for ACS-19 (low risk) JEAN-PIERRE score for UA/NSTEMI-2 points (8% risk of all cause mortality, new or recurrent NV or severe recurrent ischemia requiring urgent revascularization) Cont protonix #HTN Cont home telmisartan, metoprolol #HLD Pt reported to have dcd gemfibrozil on her own Lipitor 80mg added #DM On janumet and januvia at home Hold oral hypoglycemics ISS BGM Monitor for need for basal insulin when eating better #migraine Prior hx May need neuro follow up as out pt #constipation Pt not on any laxatives at home Moved bowel today Continue to monitor #PAD Per PCP had 20% L carotid occlusion and RLE arterial occlusion 20% FEN No standing fluids Monitor lytes, replete as needed Sodium controlled diet now DM/Sodium controlled diet PPx Lovenox sq PPI Tele admit Visit type - Emergency Visit Emergency Visit: Yes ED Registration Date: 09/21/18 Care time: The patient presented to the Emergency Department on the above date and was hospitalized for further evaluation of their emergent condition. - New Patient This patient is new to me today: No - Critical Care Critical Care patient: No - Discharge Referral Referred to [facility] No
--- NOTE | 2018-09-21 17:33 | PN ---
Teaching Attending Note Name of Resident: Aniyah Schuster ATTENDING PHYSICIAN STATEMENT I saw and evaluated the patient. I reviewed the resident's note and discussed the case with the resident. I agree with the resident's findings and plan as documented. SUBJECTIVE: Patient has no complaints. She denies chest pain, palpitations, SOB. OBJECTIVE: Vital Signs Period Temp Pulse Resp BP Sys/Puckett Pulse Ox Last 24 Hr 98.1 F-98.6 F 71-82 17-22 116-135/56-74 98-99 HEART: S1S2, RRR LUNGS: Clear ABDOMEN: Soft, non-tender, non-distended, normal BS EXTREMITIES: No edema Laboratory Results - last 24 hr 09/20/18 09/20/18 09/21/18 17:00 20:58 05:50 WBC RBC Hgb Hct MCV MCH MCHC RDW Plt Count MPV Absolute Neuts (auto) Neutrophils % Lymphocytes % Monocytes % Eosinophils % Basophils % Nucleated RBC % Sodium Potassium Chloride Carbon Dioxide Anion Gap BUN Creatinine Est GFR (CKD-EPI)AfAm Est GFR (CKD-EPI)NonAf POC Glucometer 176 171 Random Glucose Hemoglobin A1c % Calcium Phosphorus Magnesium Troponin I 0.04 Triglycerides Cholesterol Total LDL Cholesterol HDL Cholesterol 09/21/18 09/21/18 09/21/18 06:53 06:53 06:53 WBC 8.6 RBC 5.04 Hgb 14.3 Hct 42.9 MCV 85.1 MCH 28.4 MCHC 33.3 RDW 13.2 Plt Count 249 MPV 9.4 Absolute Neuts (auto) 4.8 Neutrophils % 55.5 D Lymphocytes % 35.0 D Monocytes % 7.8 D Eosinophils % 1.0 D Basophils % 0.7 Nucleated RBC % 0 Sodium 138 Potassium 3.9 Chloride 110 H Carbon Dioxide 21 Anion Gap 6 L BUN 11.9 Creatinine 0.6 Est GFR (CKD-EPI)AfAm 113.22 Est GFR (CKD-EPI)NonAf 97.69 POC Glucometer Random Glucose 167 H Hemoglobin A1c % 7.9 H Calcium 8.7 Phosphorus 2.9 Magnesium 2.2 Troponin I Triglycerides 327 H Cholesterol 280 H Total LDL Cholesterol 191 H HDL Cholesterol 42 09/21/18 13:19 WBC RBC Hgb Hct MCV MCH MCHC RDW Plt Count MPV Absolute Neuts (auto) Neutrophils % Lymphocytes % Monocytes % Eosinophils % Basophils % Nucleated RBC % Sodium Potassium Chloride Carbon Dioxide Anion Gap BUN Creatinine Est GFR (CKD-EPI)AfAm Est GFR (CKD-EPI)NonAf POC Glucometer 150 Random Glucose Hemoglobin A1c % Calcium Phosphorus Magnesium Troponin I Triglycerides Cholesterol Total LDL Cholesterol HDL Cholesterol Current Medications Generic Name Dose Route Start Last Admin Trade Name Freq PRN Reason Stop Dose Admin Acetaminophen 650 mg 09/20/18 14:12 Tylenol - PO Q6H PRN PAIN 1-3 Al Hydroxide/Mg Hydroxide 30 ml 09/20/18 14:41 Mylanta Oral Suspension - PO Q6H PRN DYSPEPSIA Amlodipine Besylate 5 mg 09/20/18 17:45 09/21/18 13:23 Norvasc - PO 5 mg DAILY JUAN Administration Aspirin 81 mg 09/22/18 10:00 Asa - PO DAILY [facility] Clopidogrel Bisulfate 75 mg 09/21/18 15:15 09/21/18 16:40 Plavix - PO 75 mg DAILY JUAN Administration Enoxaparin Sodium 40 mg 09/20/18 14:15 09/21/18 13:23 Lovenox - SQ Not Given DAILY [facility] Insulin Aspart 1 vial 09/20/18 16:30 09/21/18 13:20 Novolog Vial Sliding Scale - SQ Not Given ACHS [facility] Protocol Metoprolol Succinate 25 mg 09/21/18 15:15 09/21/18 16:41 Toprol Xl - PO 25 mg DAILY JUAN Administration Ondansetron HCl 4 mg 09/20/18 15:02 Zofran Injection IVPUSH Q6H PRN NAUSEA AND/OR VOMITING Pantoprazole Sodium 40 mg 09/20/18 14:45 09/21/18 13:24 Protonix - PO 40 mg DAILY JUAN Administration Valsartan 320 mg 09/20/18 17:45 09/21/18 13:22 Diovan - PO 320 mg DAILY JUAN Administration ASSESSMENT AND PLAN: This is a 63 year old woman with a history of HTN, hyperlipidemia, type 2 DM, migraine headaches, non-obstructive carotid disease, PAD who presented to the ED with a headache, epigastric pain, and vomiting. 1. Epigastric abdominal pain with nausea and vomiting - Resolved - Continue Protonix 2. CAD - Nuclear stress shows moderate size moderate intensity anterior wall ischemia, normal wall motion, EF 81% - Continue aspirin, Plavix, Toprol XL - Add Lipitor - Plan for cardiac cath 3. Headache - Resolved 4. Leukocytosis - Resolved - No evidence of infection 5. Old left thalamic CVA - Continue aspirin - Start Lipitor 6. HTN - Continue Diovan, Norvasc, Toprol XL 7. Hyperlipidemia - Start Lipitor 8. Type 2 DM - HgbA1c 7.9 - Luis Victoria - Continue Novolog sliding scale 9. PAD, non-obstructive carotid disease
[2018-09-21] MEDS ORDERED: INSULIN (NOVOLOG) ASPART 100 UNITS/ML 10ML VIAL ONE (21:22)
[2018-09-21] MEDS: ATORVASTATIN CA 80 MG TABLET (FP) PO SCH (21:24)
[2018-09-22] MEDS: INSULIN SLIDING SCALE (NOVOLOG) 1 VIAL SQ SCH ×4 (06:14→21:33)
--- NOTE | 2018-09-22 06:59 | PN ---
Progress Note (short form) - Note Progress Note: Coverage for Dr. Zoey Gavin Chief Complaint: Events noted, notes reviewed, denies any chest pain or dyspnea , plan to transfer for LHC/coronary angiography History of Present Illness: Seen and examined on telemetry. Events noted, notes reviewed, denies any chest pain or dyspnea, plan to transfer for LHC/coronary angiography - Current Medication List Current Medications Acetaminophen (Tylenol -) 650 mg PO Q6H PRN PRN Reason: PAIN 1-3 Al Hydroxide/Mg Hydroxide (Mylanta Oral Suspension -) 30 ml PO Q6H PRN PRN Reason: DYSPEPSIA Amlodipine Besylate (Norvasc -) 5 mg PO DAILY [facility] Last Admin: 09/21/18 13:23 Dose: 5 mg Aspirin (Asa -) 81 mg PO DAILY [facility] Atorvastatin Calcium (Lipitor -) 80 mg PO HS [facility] Last Admin: 09/21/18 21:24 Dose: 80 mg Clopidogrel Bisulfate (Plavix -) 75 mg PO DAILY [facility] Last Admin: 09/21/18 16:40 Dose: 75 mg Enoxaparin Sodium (Lovenox -) 40 mg SQ DAILY [facility] Last Admin: 09/21/18 13:23 Dose: Not Given Insulin Aspart (Novolog Vial Sliding Scale -) [address] [facility]; Protocol Last Admin: 09/22/18 06:14 Dose: 2 units Metoprolol Succinate (Toprol Xl -) 25 mg PO DAILY [facility] Last Admin: 09/21/18 16:41 Dose: 25 mg Ondansetron HCl (Zofran Injection) 4 mg IVPUSH Q6H PRN PRN Reason: NAUSEA AND/OR VOMITING Pantoprazole Sodium (Protonix -) 40 mg PO DAILY [facility] Last Admin: 09/21/18 13:24 Dose: 40 mg Valsartan (Diovan -) 320 mg PO DAILY [facility] Last Admin: 09/21/18 13:22 Dose: 320 mg Review of Systems Cardiovascular: As noted above Respiratory: denies Cough or Sputum Production Gastrointestinal: denies: Nausea, Vomiting, Diarrhea, Constipation or Abdominal Discomfort Musculoskeletal: No Symptoms Reported - Objective Vital Signs: Last Vital Signs Temp Pulse Resp BP Pulse Ox 97.9 F 59 L 20 128/65 98 09/22/18 06:10 09/22/18 06:10 09/22/18 06:10 09/22/18 06:10 09/21/18 20:30 Intake & Output 09/19/18 09/20/18 09/21/18 09/22/18 23:59 23:59 23:59 23:59 Intake Total 1460 1600 10 Balance 1460 1600 10 Weight 130 lb Constitutional: No Distress, Calm Neck: Supple Negative JVD No Bruit Respiratory: Clear to A&P Cardiovascular: S1 S2 Regular Rate Rhythm Gastrointestinal: Soft Benign Normal Bowel Sounds Ext: Negative Edema Labs: CBC, BMP 09/22/18 06:06 09/22/18 06:06 Hepatic Panel Total Bilirubin 0.6 mg/dL (0.2-1) 09/22/18 06:06 AST 18 U/L (15-37) 09/22/18 06:06 ALT 27 U/L (13-61) 09/22/18 06:06 Alkaline Phosphatase 99 U/L (45-117) 09/22/18 06:06 Albumin 3.5 g/dl (3.4-5.0) 09/22/18 06:06 ASSESSMENT: 1. CAD demand ischemia abnormal MPI study angina pectoris as outlined above for C/coronary angiography 2. Diastolic LV dysfunction with clinical class 0 NYHA classification LV failure 3. HTN 4. NIDDM 5. HHypercholesterolemia 6. Carotid atherosclerosis 7. Headache 8. History of CVA PLAN: 1. Continue toprol XL 2. Continue Norvasc 3. Continue Diovan 4. Continue Lipitor 5. Continue ASA and Plavix 6. As outlined above for C/coronary angiography Damon Solares M.D.
--- NOTE | 2018-09-22 07:01 | PN ---
Physical Exam: SUBJECTIVE: Patient seen and examined. No chest pain,no SOB, no epigastric pain , no nausea or vomiting. Pt tolerating diet. Pending transfer for cath likely tomorrow OBJECTIVE: Vital Signs Period Temp Pulse Resp BP Sys/Puckett Pulse Ox Last 24 Hr 97.7 F-99.0 F 59-82 18-22 116-146/65-74 98-98 Vital Signs Temp 99.4 F 09/22/18 17:00 Pulse 67 09/22/18 17:00 Resp 20 09/22/18 17:00 BP 127/63 09/22/18 17:00 Pulse Ox 100 09/22/18 07:00 Intake & Output 09/21/18 09/22/18 09/22/18 23:59 11:59 23:59 Intake Total 460 250 240 Balance 460 250 240 Intake: IV 160 10 Normal Saline - 1,000 ml 150 @ 75 mls/hr IV ASDIR JUAN Rx#:[id number] Saline lock 10 10 Oral 300 240 240 Other: Voiding Method Toilet Toilet Toilet # Unmeasured Voids Void 2 GENERAL: The patient is awake, alert, and fully oriented, in no acute distress. EYES: PERRL, extraocular movements intact ENT: moist mucous membranes. NECK: supple, no JVD. LUNGS: Breath sounds equal, clear to auscultation bilaterally, no wheezes, no crackles HEART: Regular rate and rhythm, S1, S2 ABDOMEN: Soft, nontender, nondistended, normoactive bowel sounds EXTREMITIES: 2+ pulses, warm, well-perfused, no edema. NEUROLOGICAL: Cranial nerves II through XII grossly intact. Normal speech, normal gait PSYCH: Normal mood, normal affect. SKIN: Warm, dry, normal turgor, no rashes or lesions noted CBC, BMP 09/22/18 06:06 09/22/18 06:06 Laboratory Results - last 24 hr 09/21/18 09/21/18 09/21/18 06:53 06:53 06:53 WBC 8.6 RBC 5.04 Hgb 14.3 Hct 42.9 MCV 85.1 MCH 28.4 MCHC 33.3 RDW 13.2 Plt Count 249 MPV 9.4 Absolute Neuts (auto) 4.8 Neutrophils % 55.5 D Lymphocytes % 35.0 D Monocytes % 7.8 D Eosinophils % 1.0 D Basophils % 0.7 Nucleated RBC % 0 Sodium 138 Potassium 3.9 Chloride 110 H Carbon Dioxide 21 Anion Gap 6 L BUN 11.9 Creatinine 0.6 Est GFR (CKD-EPI)AfAm 113.22 Est GFR (CKD-EPI)NonAf 97.69 POC Glucometer Random Glucose 167 H Hemoglobin A1c % 7.9 H Calcium 8.7 Phosphorus 2.9 Magnesium 2.2 Triglycerides 327 H Cholesterol 280 H Total LDL Cholesterol 191 H HDL Cholesterol 42 09/21/18 09/21/18 09/21/18 13:19 17:32 21:19 WBC RBC Hgb Hct MCV MCH MCHC RDW Plt Count MPV Absolute Neuts (auto) Neutrophils % Lymphocytes % Monocytes % Eosinophils % Basophils % Nucleated RBC % Sodium Potassium Chloride Carbon Dioxide Anion Gap BUN Creatinine Est GFR (CKD-EPI)AfAm Est GFR (CKD-EPI)NonAf POC Glucometer 150 192 157 Random Glucose Hemoglobin A1c % Calcium Phosphorus Magnesium Triglycerides Cholesterol Total LDL Cholesterol HDL Cholesterol 09/22/18 06:03 WBC RBC Hgb Hct MCV MCH MCHC RDW Plt Count MPV Absolute Neuts (auto) Neutrophils % Lymphocytes % Monocytes % Eosinophils % Basophils % Nucleated RBC % Sodium Potassium Chloride Carbon Dioxide Anion Gap BUN Creatinine Est GFR (CKD-EPI)AfAm Est GFR (CKD-EPI)NonAf POC Glucometer 199 Random Glucose Hemoglobin A1c % Calcium Phosphorus Magnesium Triglycerides Cholesterol Total LDL Cholesterol HDL Cholesterol Active Medications Generic Name Dose Route Start Last Admin Trade Name Freq PRN Reason Stop Dose Admin Acetaminophen 650 mg 09/20/18 14:12 Tylenol - PO Q6H PRN PAIN 1-3 Al Hydroxide/Mg Hydroxide 30 ml 09/20/18 14:41 Mylanta Oral Suspension - PO Q6H PRN DYSPEPSIA Amlodipine Besylate 5 mg 09/20/18 17:45 09/21/18 13:23 Norvasc - PO 5 mg DAILY JUAN Administration Aspirin 81 mg 09/22/18 10:00 Asa - PO DAILY JUAN Atorvastatin Calcium 80 mg 09/21/18 22:00 09/21/18 21:24 Lipitor - PO 80 mg HS JUAN Administration Clopidogrel Bisulfate 75 mg 09/21/18 15:15 09/21/18 16:40 Plavix - PO 75 mg DAILY JUAN Administration Enoxaparin Sodium 40 mg 09/20/18 14:15 09/21/18 13:23 Lovenox - SQ Not Given DAILY [facility] Insulin Aspart 1 vial 09/20/18 16:30 09/22/18 06:14 Novolog Vial Sliding Scale - SQ 2 units ACHS JUAN Administration Protocol Metoprolol Succinate 25 mg 09/21/18 15:15 09/21/18 16:41 Toprol Xl - PO 25 mg DAILY JUAN Administration Ondansetron HCl 4 mg 09/20/18 15:02 Zofran Injection IVPUSH Q6H PRN NAUSEA AND/OR VOMITING Pantoprazole Sodium 40 mg 09/20/18 14:45 09/21/18 13:24 Protonix - PO 40 mg DAILY JUAN Administration Valsartan 320 mg 09/20/18 17:45 09/21/18 13:22 Diovan - PO 320 mg DAILY JUAN Administration ASSESSMENT/PLAN: Pt is a 63 yo F with PMHx of HTN, HLD, DM, migraine, constipation, PAD, presenting from home with headache, n/v, epigastric pain since 3am today. #ACS Pt with reversible anterior wall motion abnormality For cardiac cath likely Wednesday Pt started on DAPT Started on high intensity statin Cont BB, ARB For transfer for cath #headache Resolved Likely migraine headache Changed from full dose ASA to ASA 81 with plavix Tylenol #n/v resolved could be related to ACS/ headache zofran prn #epigastric pain R/O ACS Pain resolved Pt with high cardiac risk, DM and female could have atypical presentation of chest pain JEAN-PIERRE risk index for ACS-19 (low risk) JEAN-PIERRE score for UA/NSTEMI-2 points (8% risk of all cause mortality, new or recurrent PA or severe recurrent ischemia requiring urgent revascularization) Cont protonix #HTN Cont home telmisartan, metoprolol #HLD Pt reported to have dcd gemfibrozil on her own Lipitor 80mg added #DM On janumet and januvia at home Hold oral hypoglycemics ISS BGM Monitor for need for basal insulin when eating better #migraine Prior hx May need neuro follow up as out pt #constipation Pt not on any laxatives at home Moved bowel today Continue to monitor #PAD Per PCP had 20% L carotid occlusion and RLE arterial occlusion 20% FEN No standing fluids Monitor lytes, replete as needed Sodium controlled diet now DM/Sodium controlled diet PPx Lovenox sq PPI Tele admit Visit type - Emergency Visit Emergency Visit: Yes ED Registration Date: 09/21/18 Care time: The patient presented to the Emergency Department on the above date and was hospitalized for further evaluation of their emergent condition. - New Patient This patient is new to me today: No - Critical Care Critical Care patient: No - Discharge Referral Referred to [facility] No
[2018-09-22 08:00] LABS: BASO % 0.9 % (0-2.0); EOS % 2.1 % (0-4.5); HEMATOCRIT 44.3 % (32.4-45.2); HEMOGLOBIN 14.7 GM/dL (10.7-15.3); LYMPH % 34.8 % (8-40); MCH 28.4 pg (25.7-33.7); MCHC 33.2 g/dl (32.0-36.0); MEAN CELL VOLUME 85.7 fl (80-96); MEAN PLT VOLUME 9.3 fl (7.5-11.1); MONO % 8.6 % (3.8-10.2); NEUT % 53.6 % (42.8-82.8); RBC 5.18 M/mm3 (3.60-5.2); RDW 13.3 % (11.6-15.6); WHITE BLOOD COUNT 8.1 K/mm3 (4.0-10.0)
[2018-09-22 08:33] LABS: ALBUMIN 3.5 g/dl (3.4-5.0); BILIRUBIN,TOTAL 0.6 mg/dL (0.2-1); BLOOD UREA NITROGEN 13.4 mg/dL (7-18); CREATININE 0.7 mg/dL (0.55-1.3); MAGNESIUM 2.3 mg/dL (1.8-2.4); PHOSPHOROUS 3.5 mg/dL (2.5-4.9); POTASSIUM 4.1 mmol/L (3.5-5.1); TOT PROT 7.2 g/dl (6.4-8.2)
[2018-09-22 08:41] LABS: PLATELET COUNT 278 K/MM3 (134-434)
[2018-09-22] MEDS: PANTOPRAZOLE 40 MG TABLET (FP) PO SCH (09:04)
[2018-09-22] MEDS: metoPROLOL SUCCINATE 25 MG TAB.SR.24H (FP) PO SCH (09:04)
[2018-09-22] MEDS: ASPIRIN 81 MG CHEWABLE TABLETS PO SCH (09:04)
[2018-09-22] MEDS: CLOPIDOGREL BISULFATE 75 MG TABLET (FP) PO SCH (09:05)
[2018-09-22] MEDS: ENOXAPARIN NA (PORCINE) 40 MG/0.4 ML DISP.SYRIN SQ SCH (09:05)
[2018-09-22] MEDS: VALSARTAN 160 MG TABLET (UD) PO SCH (09:05)
[2018-09-22] MEDS: amLODIPine BESYLATE 5 MG TABLET (FP) PO SCH (09:05)
[2018-09-22] MEDS ORDERED: DOCUSATE SODIUM 100 MG CAPSULE (FP) PO PRN (09:33)
[2018-09-22] MEDS ORDERED: POLYETHYLENE GLYCOL 3350 119 GM BTL PO SCH (10:00)
--- NOTE | 2018-09-22 10:02 | PN ---
Teaching Attending Note Name of Resident: Aniyah Schuster ATTENDING PHYSICIAN STATEMENT I saw and evaluated the patient. I reviewed the resident's note and discussed the case with the resident. I agree with the resident's findings and plan as documented. SUBJECTIVE:asymptomatic. states BELLO and CP resolved. denies Cp, SOB, fver, chills , N/V/C?D or blurred vision or dizzyness OBJECTIVE: Last Vital Signs Temp Pulse Resp BP Pulse Ox 98.9 F 74 22 H 105/56 L 100 09/22/18 09:45 09/22/18 09:45 09/22/18 09:45 09/22/18 09:45 09/22/18 07:00 General NAD CV S1 S2 RRR no murmur/rub/gallop no chest wall tenderness ASSESSMENT AND PLAN: 63 year old woman with a history of HTN, hyperlipidemia, type 2 DM, migraine headaches, non-obstructive carotid disease, PAD who presented to the ED with a headache, epigastric pain, and vomiting. 1. Epigastric abdominal pain with nausea and vomiting- resolved. could be anginal equivalent. on ppi 2. CAD- no more CP. +NMST with reversible ant wall ischemia. plan to transfer for cath. awaiting on insurance. started on asa/plavix/betablocker/statin. f/u cardio recommendations. 3. Headache- Resolved 4. Leukocytosis- likely reactive. resolved. no signs of infection. 5. Old left thalamic CVA- Continue asa/statin 6. HTN- Continue Diovan, Norvasc, Toprol XL 7. Hyperlipidemia-statin 8. Type 2 DM- HgbA1c 7.9. hold oral agents with pending cath. cont bgm and iss 9. PAD, non-obstructive carotid disease 10,. plan to transfer for cardiac cath. awaiting ins auth
[2018-09-22] MEDS: ATORVASTATIN CA 80 MG TABLET (FP) PO SCH (21:33)
[2018-09-23 06:08] LABS: BASO % 0.9 % (0-2.0); EOS % 1.7 % (0-4.5); HEMATOCRIT 44.2 % (32.4-45.2); HEMOGLOBIN 14.9 GM/dL (10.7-15.3); LYMPH % 42.2 % (8-40); MCH 28.3 pg (25.7-33.7); MCHC 33.8 g/dl (32.0-36.0); MEAN CELL VOLUME 83.9 fl (80-96); MEAN PLT VOLUME 9.1 fl (7.5-11.1); MONO % 7.8 % (3.8-10.2); NEUT % 47.4 % (42.8-82.8); PLATELET COUNT 267 K/MM3 (134-434); RBC 5.27 M/mm3 (3.60-5.2); RDW 13.1 % (11.6-15.6); WHITE BLOOD COUNT 7.3 K/mm3 (4.0-10.0)
[2018-09-23] MEDS: INSULIN SLIDING SCALE (NOVOLOG) 1 VIAL SQ SCH (06:25)
[2018-09-23 06:37] LABS: ALBUMIN 3.4 g/dl (3.4-5.0); BILIRUBIN,TOTAL 0.6 mg/dL (0.2-1); BLOOD UREA NITROGEN 14.8 mg/dL (7-18); CALCIUM 9.2 mg/dL (8.5-10.1); CREATININE 0.7 mg/dL (0.55-1.3); MAGNESIUM 2.2 mg/dL (1.8-2.4); POTASSIUM 4.2 mmol/L (3.5-5.1); TOT PROT 7.1 g/dl (6.4-8.2)
[2018-09-23 06:49] LABS: PHOSPHOROUS 3.4 mg/dL (2.5-4.9)
[2018-09-23] MEDS: ENOXAPARIN NA (PORCINE) 40 MG/0.4 ML DISP.SYRIN SQ SCH (09:30)
[2018-09-23] MEDS: VALSARTAN 160 MG TABLET (UD) PO SCH (09:30)
[2018-09-23] MEDS: ASPIRIN 81 MG CHEWABLE TABLETS PO SCH (09:36)
[2018-09-23] MEDS: metoPROLOL SUCCINATE 25 MG TAB.SR.24H (FP) PO SCH (09:36)
[2018-09-23] MEDS: PANTOPRAZOLE 40 MG TABLET (FP) PO SCH (09:36)
[2018-09-23] MEDS: CLOPIDOGREL BISULFATE 75 MG TABLET (FP) PO SCH (09:36)
[2018-09-23] MEDS: amLODIPine BESYLATE 5 MG TABLET (FP) PO SCH (09:36)
--- NOTE | 2018-09-23 10:01 | PN ---
Physical Exam: SUBJECTIVE: Patient seen and examined OBJECTIVE: Vital Signs Period Temp Pulse Resp BP Sys/Puckett Pulse Ox Last 24 Hr 97.9 F-99.9 F 64-76 20-20 97-146/63-76 98 GENERAL: The patient is awake, alert, and fully oriented, in no acute distress. HEAD: Normal with no signs of trauma. EYES: PERRL, extraocular movements intact, sclera anicteric, conjunctiva clear. No ptosis. ENT: Ears normal, nares patent, oropharynx clear without exudates, moist mucous membranes. NECK: Trachea midline, full range of motion, supple. LUNGS: Breath sounds equal, clear to auscultation bilaterally, no wheezes, no crackles, no accessory muscle use. HEART: Regular rate and rhythm, S1, S2 without murmur, rub or gallop. ABDOMEN: Soft, nontender, nondistended, normoactive bowel sounds, no guarding, no rebound, no hepatosplenomegaly, no masses. EXTREMITIES: 2+ pulses, warm, well-perfused, no edema. NEUROLOGICAL: Cranial nerves II through XII grossly intact. Normal speech, gait not observed. PSYCH: Normal mood, normal affect. SKIN: Warm, dry, normal turgor, no rashes or lesions noted Laboratory Results - last 24 hr 09/22/18 09/22/18 09/22/18 11:53 17:17 21:11 WBC RBC Hgb Hct MCV MCH MCHC RDW Plt Count MPV Absolute Neuts (auto) Neutrophils % Lymphocytes % Monocytes % Eosinophils % Basophils % Nucleated RBC % Sodium Potassium Chloride Carbon Dioxide Anion Gap BUN Creatinine Est GFR (CKD-EPI)AfAm Est GFR (CKD-EPI)NonAf POC Glucometer 192 115 171 Random Glucose Calcium Phosphorus Magnesium Total Bilirubin AST ALT Alkaline Phosphatase Total Protein Albumin 09/23/18 09/23/18 09/23/18 05:36 05:36 06:21 WBC 7.3 RBC 5.27 H Hgb 14.9 Hct 44.2 MCV 83.9 MCH 28.3 MCHC 33.8 RDW 13.1 Plt Count 267 MPV 9.1 Absolute Neuts (auto) 3.5 Neutrophils % 47.4 Lymphocytes % 42.2 H D Monocytes % 7.8 Eosinophils % 1.7 Basophils % 0.9 Nucleated RBC % 0 Sodium 140 Potassium 4.2 Chloride 108 H Carbon Dioxide 25 Anion Gap 7 L BUN 14.8 Creatinine 0.7 Est GFR (CKD-EPI)AfAm 107.62 Est GFR (CKD-EPI)NonAf 92.86 POC Glucometer 175 Random Glucose 165 H Calcium 9.2 Phosphorus 3.4 Magnesium 2.2 Total Bilirubin 0.6 AST 17 ALT 28 Alkaline Phosphatase 95 Total Protein 7.1 Albumin 3.4 Active Medications Generic Name Dose Route Start Last Admin Trade Name Freq PRN Reason Stop Dose Admin Acetaminophen 650 mg 09/20/18 14:12 Tylenol - PO Q6H PRN PAIN 1-3 Al Hydroxide/Mg Hydroxide 30 ml 09/20/18 14:41 Mylanta Oral Suspension - PO Q6H PRN DYSPEPSIA Amlodipine Besylate 5 mg 09/20/18 17:45 09/23/18 09:36 Norvasc - PO 5 mg DAILY JUAN Administration Aspirin 81 mg 09/22/18 10:00 09/23/18 09:36 Asa - PO 81 mg DAILY JUAN Administration Atorvastatin Calcium 80 mg 09/21/18 22:00 09/22/18 21:33 Lipitor - PO 80 mg HS [facility] Administration Clopidogrel Bisulfate 75 mg 09/21/18 15:15 09/23/18 09:36 Plavix - PO 75 mg DAILY JUAN Administration Enoxaparin Sodium 40 mg 09/20/18 14:15 09/23/18 09:30 Lovenox - SQ Not Given DAILY [facility] Insulin Aspart 1 vial 09/20/18 16:30 09/23/18 06:25 Novolog Vial Sliding Scale - SQ Not Given ACHS [facility] Protocol Metoprolol Succinate 25 mg 09/21/18 15:15 09/23/18 09:36 Toprol Xl - PO 25 mg DAILY JUAN Administration Ondansetron HCl 4 mg 09/20/18 15:02 Zofran Injection IVPUSH Q6H PRN NAUSEA AND/OR VOMITING Pantoprazole Sodium 40 mg 09/20/18 14:45 09/23/18 09:36 Protonix - PO 40 mg DAILY JUAN Administration Valsartan 320 mg 09/20/18 17:45 09/23/18 09:30 Diovan - PO Not Given DAILY JUAN Current Medications Acetaminophen (Tylenol -) 650 mg PO Q6H PRN PRN Reason: PAIN 1-3 Al Hydroxide/Mg Hydroxide (Mylanta Oral Suspension -) 30 ml PO Q6H PRN PRN Reason: DYSPEPSIA Amlodipine Besylate (Norvasc -) 5 mg PO DAILY [facility] Last Admin: 09/23/18 09:36 Dose: 5 mg Aspirin (Asa -) 81 mg PO DAILY [facility] Last Admin: 09/23/18 09:36 Dose: 81 mg Atorvastatin Calcium (Lipitor -) 80 mg PO HS [facility] Last Admin: 09/22/18 21:33 Dose: 80 mg Clopidogrel Bisulfate (Plavix -) 75 mg PO DAILY [facility] Last Admin: 09/23/18 09:36 Dose: 75 mg Enoxaparin Sodium (Lovenox -) 40 mg SQ DAILY [facility] Last Admin: 09/23/18 09:30 Dose: Not Given Insulin Aspart (Novolog Vial Sliding Scale -) 1 vial SQ [facility]; Protocol Last Admin: 09/23/18 06:25 Dose: Not Given Metoprolol Succinate (Toprol Xl -) 25 mg PO DAILY [facility] Last Admin: 09/23/18 09:36 Dose: 25 mg Ondansetron HCl (Zofran Injection) 4 mg IVPUSH Q6H PRN PRN Reason: NAUSEA AND/OR VOMITING Pantoprazole Sodium (Protonix -) 40 mg PO DAILY [facility] Last Admin: 09/23/18 09:36 Dose: 40 mg Valsartan (Diovan -) 320 mg PO DAILY [facility] Last Admin: 09/23/18 09:30 Dose: Not Given Ambulatory Orders Amlodipine Besylate 5 mg PO DAILY 09/20/18 Aspirin [ASA -] 81 mg PO DAILY 09/20/18 Empagliflozin [Jardiance] 25 mg PO DAILY 09/20/18 Sitagliptin Phos/Metformin HCl [Janumet 50-500 mg Tablet] 1 each PO DAILY Telmisartan 80 mg PO DAILY 09/20/18 ASSESSMENT/PLAN:
--- NOTE | 2018-09-23 11:05 | PN ---
Teaching Attending Note Name of Resident: Aniyah Schuster ATTENDING PHYSICIAN STATEMENT I saw and evaluated the patient. I reviewed the resident's note and discussed the case with the resident. I agree with the resident's findings and plan as documented with exceptions below. SUBJECTIVE: Patient seen and examined, no further chest pain, epigastric pain, nausea, vomiting, headache or concerns. Feels well. OBJECTIVE: Vital Signs Period Temp Pulse Resp BP Sys/Puckett Pulse Ox Last 24 Hr 97.9 F-99.9 F 64-76 20-20 97-146/63-76 98 Intake & Output 09/20/18 09/21/18 09/22/18 09/23/18 23:59 23:59 23:59 23:59 Intake Total 1460 1600 790 10 Balance 1460 1600 790 10 Weight 130 lb General: sitting in bed in no acute distress Chest:CTAB, no rales or wheezing Abdomen:Soft, obese, NT Extremities: no pablo neck: soft, supple Home Medications Medication Instructions Recorded Amlodipine Besylate 5 mg PO DAILY 09/20/18 Aspirin [ASA -] 81 mg PO DAILY 09/20/18 Empagliflozin [Jardiance] 25 mg PO DAILY 09/20/18 Sitagliptin Phos/Metformin HCl 1 each PO DAILY 09/20/18 [Janumet 50-500 mg Tablet] Telmisartan 80 mg PO DAILY 09/20/18 Active Medications Acetaminophen (Tylenol -) 650 mg PO Q6H PRN PRN Reason: PAIN 1-3 Al Hydroxide/Mg Hydroxide (Mylanta Oral Suspension -) 30 ml PO Q6H PRN PRN Reason: DYSPEPSIA Amlodipine Besylate (Norvasc -) 5 mg PO DAILY [facility] Last Admin: 09/23/18 09:36 Dose: 5 mg Aspirin (Asa -) 81 mg PO DAILY [facility] Last Admin: 09/23/18 09:36 Dose: 81 mg Atorvastatin Calcium (Lipitor -) 80 mg PO [facility] Last Admin: 09/22/18 21:33 Dose: 80 mg Clopidogrel Bisulfate (Plavix -) 75 mg PO DAILY [facility] Last Admin: 09/23/18 09:36 Dose: 75 mg Enoxaparin Sodium (Lovenox -) 40 mg SQ DAILY [facility] Last Admin: 09/23/18 09:30 Dose: Not Given Insulin Aspart (Novolog Vial Sliding Scale -) 1 vial SQ [facility]; Protocol Last Admin: 09/23/18 06:25 Dose: Not Given Metoprolol Succinate (Toprol Xl -) 25 mg PO DAILY [facility] Last Admin: 09/23/18 09:36 Dose: 25 mg Ondansetron HCl (Zofran Injection) 4 mg IVPUSH Q6H PRN PRN Reason: NAUSEA AND/OR VOMITING Pantoprazole Sodium (Protonix -) 40 mg PO DAILY [facility] Last Admin: 09/23/18 09:36 Dose: 40 mg Valsartan (Diovan -) 320 mg PO DAILY [facility] Last Admin: 09/23/18 09:30 Dose: Not Given Laboratory Results - last 24 hr 09/22/18 09/22/18 09/22/18 11:53 17:17 21:11 WBC RBC Hgb Hct MCV MCH MCHC RDW Plt Count MPV Absolute Neuts (auto) Neutrophils % Lymphocytes % Monocytes % Eosinophils % Basophils % Nucleated RBC % Sodium Potassium Chloride Carbon Dioxide Anion Gap BUN Creatinine Est GFR (CKD-EPI)AfAm Est GFR (CKD-EPI)NonAf POC Glucometer 192 115 171 Random Glucose Calcium Phosphorus Magnesium Total Bilirubin AST ALT Alkaline Phosphatase Total Protein Albumin 09/23/18 09/23/18 09/23/18 05:36 05:36 06:21 WBC 7.3 RBC 5.27 H Hgb 14.9 Hct 44.2 MCV 83.9 MCH 28.3 MCHC 33.8 RDW 13.1 Plt Count 267 MPV 9.1 Absolute Neuts (auto) 3.5 Neutrophils % 47.4 Lymphocytes % 42.2 H D Monocytes % 7.8 Eosinophils % 1.7 Basophils % 0.9 Nucleated RBC % 0 Sodium 140 Potassium 4.2 Chloride 108 H Carbon Dioxide 25 Anion Gap 7 L BUN 14.8 Creatinine 0.7 Est GFR (CKD-EPI)AfAm 107.62 Est GFR (CKD-EPI)NonAf 92.86 POC Glucometer 175 Random Glucose 165 H Calcium 9.2 Phosphorus 3.4 Magnesium 2.2 Total Bilirubin 0.6 AST 17 ALT 28 Alkaline Phosphatase 95 Total Protein 7.1 Albumin 3.4 2D echo and stress test results reviewed Telemetry: occasional PVCs ASSESSMENT AND PLAN: 63 yof with PMHx of HTN, HLD, NIDDM (prior on insulin, taken off given A1c improved to 8), Migrainous headaches, non obstructive Carotid stenosis, PAD admitted with right sided headache, vomiting and epigastric discomfort with borderline elevated troponin -Epigstric pain -Right sided headache -Borderline troponin -Leucocytosis, stress from above, no focal s/s concerning for infection. -Chronic left thalamic CVA -HTN -HLD -NIDDM -Non obstructive Carotid stenosis/PAD Plan: Stress pos. Cardiology input noted For transfer to [place] today for cardiac cath. Discussed with Dr. Gavin. Continue ASA/plavix/statin/metoprolol/diovan/amlodipine. Hold oral hypoglycemics for now Transfer to [facility] for cardiac cath and further w/u Discussed with patient, family at bedside and nursing, all questions answered.
[2018-09-23 12:14] VITALS: BP 130/73; PULSE 78; TEMP 98.6
--- NOTE | 2018-09-23 13:10 | PN ---
Progress Note, Physician History of Present Illness: 63 yof with PMHx of HTN, HLD, NIDDM (prior on insulin, taken off given A1c improved to 8), Migrainous headaches, non obstructive Carotid stenosis, PAD was in her USOH till this AM when woke up with right sided headache, with multiple episodes of non bloody vomiting and epigastric discomfort, more like soreness that started after the vomiting. reports episode similar to her prior migraine headaches, but last one this severe was in 1999. her headache has improved after receiving ASA 325 mg x 1. Epigastric discomfort almost resolved. Exercises for 1 hour on treadmill, twice a week, with no concerns of chest pain or dyspnea. 12 point ROS done, neg for fevers, chills, palpitations, dizziness, dyspnea, or urinary symptoms - Objective Vital Signs: Vital Signs Temperature 98.6 F 09/23/18 10:00 Pulse Rate 78 09/23/18 10:00 Respiratory Rate 18 09/23/18 10:00 Blood Pressure 130/73 09/23/18 10:00 O2 Sat by Pulse Oximetry (%) 99 09/23/18 07:00 Eyes: Yes: WNL, Conjunctiva Clear, EOM Intact HENT: Yes: WNL, Atraumatic, Normocephalic Neck: Yes: WNL, Supple, Trachea Midline Cardiovascular: Yes: WNL, Regular Rate and Rhythm Respiratory: Yes: WNL, Regular, CTA Bilaterally Gastrointestinal: Yes: WNL, Normal Bowel Sounds Genitourinary: Yes: WNL Musculoskeletal: Yes: WNL Extremities: Yes: WNL Edema: No Integumentary: Yes: WNL Neurological: Yes: WNL, Alert, Oriented ...Motor Strength: WNL Psychiatric: Yes: WNL Labs: CBC, BMP 09/23/18 05:36 09/23/18 05:36 Problem List - Problems (1) Elevated troponin I level Code(s): R74.8 - ABNORMAL LEVELS OF OTHER SERUM ENZYMES (2) Headache Code(s): R51 - HEADACHE Qualifiers: Headache type: unspecified Headache chronicity pattern: acute headache Intractability: not intractable Qualified Code(s): R51 - Headache Assessment/Plan ASSESSMENT AND PLAN: 63 yof with PMHx of HTN, HLD, NIDDM (prior on insulin, taken off given A1c improved to 8), Migrainous headaches, non obstructive Carotid stenosis, PAD admitted with right sided headache, vomiting and epigastric discomfort with borderline elevated troponin -Epigstric pain -Right sided headache -Borderline troponin -Leucocytosis, stress from above, no focal s/s concerning for infection. -Chronic left thalamic CVA -HTN -HLD -NIDDM -Non obstructive Carotid stenosis/PAD ECHO wnol mibi st moderate sized moderate intensity anterior wall ischemia. Will need c. cath ASA /Plavix/bb
--- NOTE | 2018-09-24 05:05 | DS ---
Physical Exam: SUBJECTIVE: Patient seen and examined. No chest pain, no epigastric pain, no SOB of breath, no headache. To be transferred for cardiac catheter to [facility] OBJECTIVE: Vital Signs Period Temp Pulse Resp BP Sys/Puckett Pulse Ox Last 24 Hr 97.9 F-98.6 F 68-78 18-20 130-139/69-73 99 PHYSICAL EXAM GENERAL: The patient is awake, alert, and fully oriented, in no acute distress. NECK: supple, No JVD. LUNGS: Breath sounds equal, clear to auscultation bilaterally, no wheezes, no crackles HEART: Regular rate and rhythm, S1, S2 ABDOMEN: Soft, nontender, nondistended, normoactive bowel sounds EXTREMITIES: 2+ pulses, warm, well-perfused, no edema. NEUROLOGICAL: Cranial nerves II through XII grossly intact. Normal speech, normal gait, no lateralizing signs LABS Laboratory Results - last 24 hr 09/23/18 09/23/18 09/23/18 05:36 05:36 06:21 WBC 7.3 RBC 5.27 H Hgb 14.9 Hct 44.2 MCV 83.9 MCH 28.3 MCHC 33.8 RDW 13.1 Plt Count 267 MPV 9.1 Absolute Neuts (auto) 3.5 Neutrophils % 47.4 Lymphocytes % 42.2 H D Monocytes % 7.8 Eosinophils % 1.7 Basophils % 0.9 Nucleated RBC % 0 Sodium 140 Potassium 4.2 Chloride 108 H Carbon Dioxide 25 Anion Gap 7 L BUN 14.8 Creatinine 0.7 Est GFR (CKD-EPI)AfAm 107.62 Est GFR (CKD-EPI)NonAf 92.86 POC Glucometer 175 Random Glucose 165 H Calcium 9.2 Phosphorus 3.4 Magnesium 2.2 Total Bilirubin 0.6 AST 17 ALT 28 Alkaline Phosphatase 95 Total Protein 7.1 Albumin 3.4 09/23/18 11:48 WBC RBC Hgb Hct MCV MCH MCHC RDW Plt Count MPV Absolute Neuts (auto) Neutrophils % Lymphocytes % Monocytes % Eosinophils % Basophils % Nucleated RBC % Sodium Potassium Chloride Carbon Dioxide Anion Gap BUN Creatinine Est GFR (CKD-EPI)AfAm Est GFR (CKD-EPI)NonAf POC Glucometer 181 Random Glucose Calcium Phosphorus Magnesium Total Bilirubin AST ALT Alkaline Phosphatase Total Protein Albumin Current Medications Acetaminophen (Tylenol -) 650 mg PO Q6H PRN PRN Reason: PAIN 1-3 Al Hydroxide/Mg Hydroxide (Mylanta Oral Suspension -) 30 ml PO Q6H PRN PRN Reason: DYSPEPSIA Amlodipine Besylate (Norvasc -) 5 mg PO DAILY [facility] Last Admin: 09/23/18 09:36 Dose: 5 mg Aspirin (Asa -) 81 mg PO DAILY [facility] Last Admin: 09/23/18 09:36 Dose: 81 mg Atorvastatin Calcium (Lipitor -) 80 mg PO HS [facility] Last Admin: 09/22/18 21:33 Dose: 80 mg Clopidogrel Bisulfate (Plavix -) 75 mg PO DAILY [facility] Last Admin: 09/23/18 09:36 Dose: 75 mg Enoxaparin Sodium (Lovenox -) 40 mg SQ DAILY [facility] Last Admin: 09/23/18 09:30 Dose: Not Given Insulin Aspart (Novolog Vial Sliding Scale -) 1 vial SQ [facility]; Protocol Last Admin: 09/23/18 06:25 Dose: Not Given Metoprolol Succinate (Toprol Xl -) 25 mg PO DAILY [facility] Last Admin: 09/23/18 09:36 Dose: 25 mg Ondansetron HCl (Zofran Injection) 4 mg IVPUSH Q6H PRN PRN Reason: NAUSEA AND/OR VOMITING Pantoprazole Sodium (Protonix -) 40 mg PO DAILY [facility] Last Admin: 09/23/18 09:36 Dose: 40 mg Valsartan (Diovan -) 320 mg PO DAILY [facility] Last Admin: 09/23/18 09:30 Dose: Not Given Ambulatory Orders Amlodipine Besylate 5 mg PO DAILY 09/20/18 Aspirin [ASA -] 81 mg PO DAILY 09/20/18 Empagliflozin [Jardiance] 25 mg PO DAILY 09/20/18 Sitagliptin Phos/Metformin HCl [Janumet 50-500 mg Tablet] 1 each PO DAILY Telmisartan 80 mg PO DAILY 09/20/18 ECHO 09/21/18-LVsize, thickness and fn-nl. LVEFnl. LVWM is nl. Trace to mild MR. RVSP nl. E/A reversal is consistent with but not diagnostic of poor LV compliance Stress test 09/21/18-reversible anterior ischemia. Pt needs cath HOSPITAL COURSE: Date of Admission:09/21/18 Date of Discharge: 09/24/18 Pt is a 63 yo F with PMHx of HTN, HLD, DM, migraine, constipation, PAD, presenting from home with headache, n/v, epigastric pain since 3am today. Pt was evaluated for atypical chest pain, and found to have reversible anterior wall motion abnormality. She was started on DAPT, high intensity statin and continued on BB, ARB. Her headache resolved with tylenol and the n/v resolved. She was transferred to [facility] for cardiac catheterization. Minutes to complete discharge: 39 Discharge Summary Reason For Visit: HEADACHE Condition: Stable - Instructions Diet, Activity, Other Instructions: You came in with epigastric pain and got a nuclear stress test done. It showed signs of changes in the heart. We are transferring you to [facility] to get a cardiac catheter We are continuing you on: Acetaminophen (Tylenol -) 650 mg PO Q6H PRN PRN Reason: PAIN 1-3 Al Hydroxide/Mg Hydroxide (Mylanta Oral Suspension -) 30 ml PO Q6H PRN PRN Reason: DYSPEPSIA Amlodipine Besylate (Norvasc -) 5 mg PO DAILY [facility] Last Admin: 09/23/18 09:36 Dose: 5 mg Aspirin (Asa -) 81 mg PO DAILY [facility] Last Admin: 09/23/18 09:36 Dose: 81 mg Atorvastatin Calcium (Lipitor -) 80 mg PO HS [facility] Last Admin: 09/22/18 21:33 Dose: 80 mg Clopidogrel Bisulfate (Plavix -) 75 mg PO DAILY [facility] Last Admin: 09/23/18 09:36 Dose: 75 mg Enoxaparin Sodium (Lovenox -) 40 mg SQ DAILY [facility] Last Admin: 09/23/18 09:30 Dose: Not Given Insulin Aspart (Novolog Vial Sliding Scale -) 1 vial SQ [facility]; Protocol Last Admin: 09/23/18 06:25 Dose: Not Given Metoprolol Succinate (Toprol Xl -) 25 mg PO DAILY [facility] Last Admin: 09/23/18 09:36 Dose: 25 mg Ondansetron HCl (Zofran Injection) 4 mg IVPUSH Q6H PRN PRN Reason: NAUSEA AND/OR VOMITING Pantoprazole Sodium (Protonix -) 40 mg PO DAILY [facility] Last Admin: 09/23/18 09:36 Dose: 40 mg Valsartan (Diovan -) 320 mg PO DAILY [facility] Last Admin: 09/23/18 09:30 Dose: Not Given Your home medications were: Amlodipine Besylate 5 mg PO DAILY Aspirin [ASA -] 81 mg PO DAILY Empagliflozin [Jardiance] 25 mg PO DAILY Sitagliptin Phos/Metformin HCl [Janumet 50-500 mg Tablet] 1 each PO DAILY Telmisartan 80 mg PO DAILY Disposition: TRANSFER ACUTE CARE/OTHER HOSP - Home Medications Comprehensive Discharge Medication List: Ambulatory Orders Amlodipine Besylate 5 mg PO DAILY 09/20/18 Telmisartan 80 mg PO DAILY 09/20/18 Acetaminophen [Tylenol .Regular Strength -] 650 mg PO Q6H PRN tablet 09/23/18 Amlodipine Besylate [Norvasc -] 5 mg PO DAILY tablet 09/23/18 Aspirin [ASA -] 81 mg PO DAILY tab.chew 09/23/18 Atorvastatin Ca [Lipitor] 80 mg PO HS tablet 09/23/18 Clopidogrel Bisulfate [Plavix -] 75 mg PO DAILY tablet 09/23/18 Docusate Sodium [Colace -] 100 mg PO BID PRN capsule 09/23/18 Enoxaparin [Lovenox -] 40 mg SQ DAILY disp.syrin 09/23/18 Insulin Sliding Scale [Novolog Vial Sliding Scale -] 1 vial SQ ACHS units 09/23 Mag Hydrox/Al Hydrox/Simeth [Mylanta Oral Suspension -] 30 ml PO Q6H PRN cup Metoprolol Succinate [Toprol XL -] 25 mg PO DAILY tab.sr.24h 09/23/18 Ondansetron Injection [Zofran Injection] 4 mg IVPUSH Q6H PRN vial 09/23/18 Pantoprazole Sodium [Protonix -] 40 mg PO DAILY tablet.ec 09/23/18 Polyethylene Glycol 3350 [Miralax 119 gm Btl -] 17 gm PO BID bottle 09/23/18 This patient is new to me today: No Emergency Visit: Yes ED Registration Date: 09/21/18 Care time: The patient presented to the Emergency Department on the above date and was hospitalized for further evaluation of their emergent condition. Critical Care patient: No - Discharge Referral Referred to [facility] Med P.C.: No
== END 2018-09-23 12:20 | disposition short-term general hospital (02) | DRG 198 ==
LOC: JER 06:31 → JERBED 10:23 → J4W 15:36 → OBSVTOIN 09-21 15:34
PROVIDERS: ADMIT Hospitalist; ATTEND Hospitalist
DX: I25.119 Atherosclerotic heart disease of native coronary artery with unspecified angina pectoris (principal); I24.8 Other forms of acute ischemic heart disease; I65.22 Occlusion and stenosis of left carotid artery; E11.51 Type 2 diabetes mellitus with diabetic peripheral angiopathy without gangrene; I10 Essential (primary) hypertension; E78.5 Hyperlipidemia, unspecified; G43.909 Migraine, unspecified, not intractable, without status migrainosus; R11.2 Nausea with vomiting, unspecified; K59.00 Constipation, unspecified; Z86.73 Personal history of transient ischemic attack (TIA), and cerebral infarction without residual deficits; D72.829 Elevated white blood cell count, unspecified; Z79.84 Long term (current) use of oral hypoglycemic drugs; R74.8 Abnormal levels of other serum enzymes; K29.60 Other gastritis without bleeding
CPT/HCPCS: 36415; 70450-TC; 71045-TC-FY; 78452-TC; 80048; 80053; 80061; 82272; 82550; 82962; 83036; 83690; 83721; 83735; 84100; 84484; 85025; 85651; 86140; 93005; 93010; 93017; 93306-TC; 99283-25; A9502; G0378; J0131; J7030

== ENCOUNTER 2019-09-30 10:52 | Inpatient (IN) | payer OTHER ==
[2019-09-30 11:49] LABS: BASO % 0.6 % (0-2.0); EOS % 1.5 % (0-4.5); HEMATOCRIT 44.6 % (32.4-45.2); HEMOGLOBIN 14.7 GM/dL (10.7-15.3); LYMPH % 18.6 % (8-40); MCH 28.1 pg (25.7-33.7); MEAN CELL VOLUME 85.3 fl (80-96); MEAN PLT VOLUME 9.9 fl (7.5-11.1); MONO % 5.2 % (3.8-10.2); NEUT % 74.1 % (42.8-82.8); PLATELET COUNT 270 K/MM3 (134-434); RBC 5.23 M/mm3 (3.60-5.2); RDW 13.5 % (11.6-15.6); WHITE BLOOD COUNT 12.5 K/mm3 (4.0-10.0)
[2019-09-30 11:56] LABS: INR 1.02 (0.83-1.09)
[2019-09-30 11:58] LABS: ACTIVATED PTT 32.1 SECONDS (25.2-36.5)
[2019-09-30 12:19] LABS: ALBUMIN 3.5 g/dl (3.4-5.0); ALK PHOS 106 U/L (45-117); ANION GAP 4 MMOL/L (8-16); BILIRUBIN,TOTAL 0.6 mg/dL (0.2-1); BLOOD UREA NITROGEN 12.5 mg/dL (7-18); CALCIUM 9.6 mg/dL (8.5-10.1); CHLORIDE 105 mmol/L (98-107); CO2 24 mmol/L (21-32); CREATININE 0.8 mg/dL (0.55-1.3); GLUCOSE,RANDOM 154 mg/dL (74-106); SGOT/AST 99 U/L (15-37); SGPT/ALT 60 U/L (13-61); SODIUM 133 mmol/L (136-145); TOT PROT 7.9 g/dl (6.4-8.2)
[2019-09-30 12:20] LABS: POTASSIUM > 10.0 mmol/L (3.5-5.1)
[2019-09-30 12:29] LABS: CHOLESTEROL 170 mg/dL (50-200); HDL CHOLESTEROL 40 mg/dL (40-60); LDL CHOLESTEROL (ONLY SJRH) 101 mg/dL (5-100); TRIGLYCERIDES 258 mg/dL (0-150)
[2019-09-30] MEDS ORDERED: ASPIRIN 325 MG TABLET PO ONE (12:45)
[2019-09-30] MEDS ORDERED: ATORVASTATIN CA 40 MG TABLET (FP) PO ONE ×2 (12:47→17:24)
--- NOTE | 2019-09-30 13:38 | PDOC ---
Documentation entered by Antwon Schmidt SCRIBE, acting as scribe for Luis Eduardo Redding MD. Luis Eduardo Redding MD: This documentation has been prepared by the luis, Antwon Schmidt SCRIBE, under my direction and personally reviewed by me in its entirety. I confirm that the documentation accurately reflects all work, treatment, procedures, and medical decision making performed by me. Attending Attestation - Resident Resident Name: LarryJorgito - ED Attending Attestation I have performed the following: I have examined & evaluated the patient, The case was reviewed & discussed with the resident, I agree w/resident's findings & plan, Exceptions are as noted - HPI HPI: 09/30/19 13:35 The patient is a 64 year old female with a significant past medical history of CVA (1 month ago, on Lovenox) with residual right sided weakness, HTN, HLD, DM, and migraines who presents to the ED, BIBA,with lip numbness and tingling and worsened right upper and lower extremity weakness that began at 2am. Patient reports she went to sleep at 11pm last night without any symptoms and woke up with the numbness/tingling at 2am. Patient reports she was unable to walk, lightheaded, and experiencing general weakness. The patient denies chest pain and shortness of breath. Denies fever, chills and/or any GI symptoms. Denies any symptoms. Surgical Hx: 2x stent Allergies: NKDA - Physicial Exam PE: 09/30/19 12:23 See resident exam - Medical Decision Making 09/30/19 13:39 64 F with worsening weakness and new numbness/tingling. Concerning for acute CVA. Pt outside window for TPA. - Labs - CT head - Neuro c/s Discharge - Discharge Information Problems reviewed: Yes Clinical Impression/Diagnosis: CVA (cerebral vascular accident) Qualifiers: CVA mechanism: unspecified Qualified Code(s): I63.9 - Cerebral infarction, unspecified - Follow up/Referral - Patient Discharge Instructions - Post Discharge Activity
[2019-09-30] MEDS ORDERED: ASPIRIN 81 MG CHEWABLE TABLETS ONE (13:50)
[2019-09-30] MEDS ORDERED: ATORVASTATIN CA 80 MG TABLET (FP) ONE (13:51)
[2019-09-30 14:03] LABS: BLOOD UREA NITROGEN 11.4 mg/dL (7-18); CREATININE 0.7 mg/dL (0.55-1.3); POTASSIUM 4.6 mmol/L (3.5-5.1)
--- NOTE | 2019-09-30 17:37 | HP ---
CHIEF COMPLAINT: L sided facial weakness w/ dysarthria HISTORY OF PRESENT ILLNESS: 64 F h/o CAD S/P cath (stent) 2019, HTN, T2DM, HLD, migraine headaches, CVA w/ R sided residual weakness/numbness wakes up today when daughter noticed she was slurring her speech and L side of face was weak and assymetrical as compared to R side. Patient was rushed to ED, where CT head was done negative for bleed. Was at [facility] 2 weeks ago for prior CVA. At [facility] pt. given lovenox SC daily where she developed wheel-like urticarial rash on abdomen which is itchy. Otherwise pt. denies fever/chills/SOB/cough/travel/outdoor activity/Cp/SOB/LOC, but endorses double vision and dizzienss. Dr. Wiley notified who recommended MRI/ASA/high intensity statin and treatment for new CVA. ER course was notable for: (1) neg new findings on CT head (2) MRi pending (3) ASA/statin given Recent Travel: denies PAST MEDICAL HISTORY: as above PAST SURGICAL HISTORY: PCI w/ stent 2019 Social History: denies x3 Allergies No Known Allergies Allergy (Verified 09/01/19 19:12) HOME MEDICATIONS: Home Medications Medication Instructions Recorded Clopidogrel Bisulfate [Plavix -] 75 mg PO DAILY tablet 09/23/18 Metoprolol Succinate [Toprol XL -] 25 mg PO DAILY tab.sr.24h 09/23/18 Farxiga 10 mg PO DAILY 09/01/19 Gemfibrozil 600 mg PO DAILY 09/01/19 Aspirin [Aspirin EC] 81 mg PO DAILY 09/02/19 Atorvastatin Ca [Lipitor] 40 mg PO HS 09/02/19 Enalapril Maleate [Vasotec -] 30 mg PO DAILY #30 tablet 09/04/19 Lancets [Lancets Thin] 1 each MC DAILY #100 each 09/04/19 Miscellaneous Medical Supply 1 each SQ ASDIR #1 kit 09/04/19 [Glucometer Device] Miscellaneous Medical Supply 1 each SQ ASDIR #1 box 09/04/19 [Glucometer Test Strips #100] Sitagliptin Phos/Metformin HCl 1 tab PO DAILY #30 tab 09/04/19 [Janumet Xr 100-1,000 mg Tablet] PHYSICAL EXAMINATION Vital Signs - 24 hr 09/30/19 09/30/19 09/30/19 11:24 11:35 13:23 Temperature 98.1 F 98.4 F Pulse Rate 75 Pulse Rate [ 66 Apical] Respiratory 17 19 Rate Blood Pressure 122/72 Blood Pressure 132/62 [Right Arm] O2 Sat by Pulse 98 100 100 Oximetry (%) GENERAL: Awake, alert, and fully oriented, tired appearing HEENT NC/AT, L eyelid droop with abduction of L eye does not cross midline, pupils ERLA, neck supple, L nasolabial fold flattening, L mouth droop w/ sparing of forehead LUNGS: Breath sounds equal, clear to auscultation bilaterally. No wheezes, and no crackles. No accessory muscle use. HEART: Regular rate and rhythm, normal S1 and S2 without murmur, rub or gallop. ABDOMEN: Soft, nontender, not distended, normoactive bowel sounds, no guarding, no rebound, no masses. wheel-like urticarial rash (possibly from previous Lovenox injection sites) involving both sides of abdomen MUSCULOSKELETAL: Normal range of motion at all joints. No bony deformities or tenderness. No CVA tenderness. UPPER EXTREMITIES: 2+ pulses, warm, well-perfused. No cyanosis. No clubbing. No peripheral edema. LOWER EXTREMITIES: 2+ pulses, warm, well-perfused. No calf tenderness. No peripheral edema. Moves all 4 extremities. PSYCHIATRIC: Cooperative. Good eye contact. Appropriate mood and affect. SKIN: Warm, dry, normal turgor, no rashes or lesions noted, normal capillary refill. Laboratory Results - last 24 hr 09/30/19 09/30/19 09/30/19 11:30 11:30 11:30 WBC 12.5 H RBC 5.23 H Hgb 14.7 Hct 44.6 MCV 85.3 MCH 28.1 MCHC 33.0 RDW 13.5 Plt Count 270 MPV 9.9 Absolute Neuts (auto) 9.3 H Neutrophils % 74.1 D Lymphocytes % 18.6 D Monocytes % 5.2 Eosinophils % 1.5 Basophils % 0.6 Nucleated RBC % 0 PT with INR 12.00 INR 1.02 PTT (Actin FS) 32.1 Sodium Potassium Chloride Carbon Dioxide Anion Gap BUN Creatinine Est GFR (CKD-EPI)AfAm Est GFR (CKD-EPI)NonAf Random Glucose Calcium Total Bilirubin AST ALT Alkaline Phosphatase Creatine Kinase Creatine Kinase Index CK-MB (CK-2) Troponin I Total Protein Albumin Triglycerides 258 H Cholesterol 170 Total LDL Cholesterol 101 H HDL Cholesterol 40 Blood Type Antibody Screen 09/30/19 09/30/19 09/30/19 11:30 11:30 12:50 WBC RBC Hgb Hct MCV MCH MCHC RDW Plt Count MPV Absolute Neuts (auto) Neutrophils % Lymphocytes % Monocytes % Eosinophils % Basophils % Nucleated RBC % PT with INR INR PTT (Actin FS) Sodium 133 L 141 Potassium > 10.0 H* 4.6 Chloride 105 107 Carbon Dioxide 24 24 Anion Gap 4 L 10 BUN 12.5 11.4 Creatinine 0.8 0.7 Est GFR (CKD-EPI)AfAm 90.94 106.87 Est GFR (CKD-EPI)NonAf 78.46 92.21 Random Glucose 154 H 149 H Calcium 9.6 10.0 Total Bilirubin 0.6 AST 99 H ALT 60 Alkaline Phosphatase 106 Creatine Kinase 374 H Creatine Kinase Index No Result Required. CK-MB (CK-2) < 1.0 Troponin I 0.06 H Total Protein 7.9 Albumin 3.5 Triglycerides Cholesterol Total LDL Cholesterol HDL Cholesterol Blood Type O POSITIVE Antibody Screen Negative ASSESSMENT/PLAN: 64 F CVA w/ L facial weakness/dysarthria (wake up CVA not candidate for tPA) HTn HLD CAD s/p stent Migraine BELLO CVA w/ R sided weakness/numbness Troponemia Plan: ASA 325mg given, Lipitor 80mg to be given Permissive HTN MRI brain, Carotid US, Echo Send A1c/lipid/TSH Serial neuro exams Tele monitoring Neurology following Cardiology evaluation for trop leak DVT ppx: SCD/EMELY for now (avoid lovenox containing products d/t reaction) Visit type - Emergency Visit Emergency Visit: Yes ED Registration Date: 09/30/19 Care time: The patient presented to the Emergency Department on the above date and was hospitalized for further evaluation of their emergent condition. - New Patient This patient is new to me today: Yes Date on this admission: 09/30/19 - Critical Care Critical Care patient: No
[2019-09-30 18:22] VITALS: BMI 24.2
[2019-09-30] MEDS: TRIAMCINOLONE ACET 0.1% OINT 15 GM TUBE TP SCH (20:40)
[2019-09-30 21:57] LABS: PH,URINE 7.5 (5.0-8.0); URINE APPEARANCE CLEAR; URINE BILIRUBIN NEGATIVE (NEGATIVE); URINE COLOR YELLOW; URINE GLUCOSE (UA) 3+ (NEGATIVE); URINE KETONE NEGATIVE (NEGATIVE); URINE LEUK ESTERASE NEGATIVE (NEGATIVE); URINE NITRITE NEGATIVE (NEGATIVE); URINE PROTEIN NEGATIVE (NEGATIVE)
[2019-10-01 06:48] LABS: BASO % 0.7 % (0-2.0); EOS % 2.3 % (0-4.5); HEMATOCRIT 44.6 % (32.4-45.2); HEMOGLOBIN 14.7 GM/dL (10.7-15.3); LYMPH % 35.8 % (8-40); MCH 27.7 pg (25.7-33.7); MONO % 6.1 % (3.8-10.2); NEUT % 55.1 % (42.8-82.8); PLATELET COUNT 279 K/MM3 (134-434); RBC 5.31 M/mm3 (3.60-5.2); RDW 13.3 % (11.6-15.6); WHITE BLOOD COUNT 8.4 K/mm3 (4.0-10.0)
[2019-10-01 07:10] LABS: BLOOD UREA NITROGEN 14.8 mg/dL (7-18); CREATININE 0.7 mg/dL (0.55-1.3)
[2019-10-01 07:11] LABS: ALBUMIN 3.6 g/dl (3.4-5.0); BILIRUBIN,TOTAL 0.8 mg/dL (0.2-1); CALCIUM 9.6 mg/dL (8.5-10.1); POTASSIUM 4.3 mmol/L (3.5-5.1); TOT PROT 6.9 g/dl (6.4-8.2)
--- NOTE | 2019-10-01 07:59 | PDOC ---
History of Present Illness - General Chief Complaint: CVA/TIA Stated Complaint: POSSIBLE STROKE Time Seen by Provider: 09/30/19 11:02 History Source: Patient - History of Present Illness Initial Comments: 65F w/hx HTN, HLD, DM, CAD s/p cardiac stenting, recent CVA one month ago w/residual R sided weakness [facility] p/w several hours of worsening R sided weakness, lip numbness, difficulty ambulating. She reports feeling her normal self at approx 2230 last night, and waking up at 0200 early this AM with worsened RUE, RLE weakness alongside lip numbness. She reports going back to bed and becoming concerned when symptoms persisted in the morning, as well as noticing generalized weakness and difficulty ambulating. She denies vertigo, chest pain, palpitations, sob, fevers, chills. tPA Exclusion checklist 3-4.5h - Time Elapsed Date last known well: 10/02/19 Time last known well: 22:30 Elaspsed time: 2 Day(s) and 20 Hour(s) and 27 Minutes - Thrombolytic Therapy Candidate Is patient eligible for thrombolytic therapy: No - Exclusion Criteria 3-4.5 hr SBP greater than 185 or DBP greater than 110mmHg despite tx: No Recent IC/spinal surgery,head trauma or stroke<3mos.: No Hx IC hemorrhage, IC neoplasm, AV malformation or aneurysm: No Active internal bleeding: No Blding diathesis(low plt ct, inc PTT,INR>1.7 or use of NOAC): No - Add'l Relative Exclusion 3-4.5 hr Severe Stroke (NIHSS >25): No - Ineligibility reason(s) Reasons No tPA given: Outside of window - delayed arrival NIH Stroke Scale - Last Known Well Date/Time & Onset Date Last Known Well: 10/02/19 Time Last Known Well: 22:30 - Initial Evaluation Level of consciousness: Alert Ask patient the month and their age: Answers both correctly Ask patient to open & close eyes; make fist and let go: Obeys both correctly Best gaze (horizontal eye movement): Normal Visual field testing: No visual field loss Facial paresis (Show teeth/raise eyebrows/close eyes tight): Normal symmetrical movement Motor Function: Left Arm: Normal Motor Function: Right Arm: Drift Motor Function: Left Leg: Normal (extends leg 30 degrees for 5 seconds without drift) Motor Function: Right Leg: Drift Limb Ataxia: No ataxia Sensory(Use pinprick test arms,legs,trunk,face/side to side): Normal Best language (Describe picture, name items, read sentences): No Aphasia Dysarthria (read several words): Normal articulation Extinction and Inattention: No abnormality - Total Score NIH Stroke Scale Score: 2 Past History - Medical History Allergies/Adverse Reactions: Allergies Allergy/AdvReac Type Severity Reaction Status Date / Time enoxaparin [From Lovenox] Allergy Intermediate Rash Verified 09/30/19 18:47 Home Medications: Ambulatory Orders Metoprolol Succinate [Toprol XL -] 25 mg PO DAILY tab.sr.24h 09/23/18 Lancets [Lancets Thin] 1 each MC DAILY #100 each 09/04/19 Miscellaneous Medical Supply [Glucometer Device] 1 each SQ ASDIR #1 kit 09/04/19 Aspirin [ASA -] 81 mg PO DAILY 09/30/19 Atorvastatin Ca [Lipitor] 40 mg PO HS 09/30/19 Clopidogrel Bisulfate [Plavix] 75 mg PO DAILY 09/30/19 Dapagliflozin Propanediol [Farxiga] 10 mg PO DAILY 09/30/19 Enalapril Maleate [Vasotec -] 20 mg PO DAILY 09/30/19 Meclizine HCl 12.5 mg PO DAILY 09/30/19 Metformin HCl [Glucophage] 500 mg PO HS 09/30/19 Cardiac Disorders: (CAD s/p cath) CVA: (CVA: last month) COPD: No Diabetes: Yes HTN: Yes Hypercholesterolemia: Yes - Surgical History Appendectomy: Yes Cardiac Surgery: (Cath) - Reproductive History Is Patient Now?: No - Immunization History Immunization Up to Date: No - Psycho-Social/Smoking History Smoking History: Never smoked Have you smoked in the past 12 months: No - Substance Abuse Hx (Audit-C & DAST Scrn) How often the patient has a drink containing alcohol: Monthly or less Score: In Men: 4 or > Positive; In Women: 3 or > Positive: 1 Screen Result (Pos requires Nsg. Audit-10AR): Negative In the last yr the pt used illegal drug/Rx for NonMed reason: No Score: Yes response is considered Positive: 0 Screen Result (Positive result requires Nsg. DAST-10): Negative Review of Systems - Review of Systems Able to Perform ROS?: Yes Comments:: GENERAL/CONSTITUTIONAL: No fever or chills. HEAD, EYES, EARS, NOSE AND THROAT: No change in vision. No ear pain or discharge. No sore throat. CARDIOVASCULAR: No chest pain or shortness of breath RESPIRATORY: No cough, wheezing, or hemoptysis. GASTROINTESTINAL: No nausea, vomiting, diarrhea or constipation. GENITOURINARY: No dysuria, frequency, or change in urination. MUSCULOSKELETAL: No joint or muscle swelling or pain. No neck or back pain. SKIN: No rash NEUROLOGIC: R sided weakness worse than baseline. Difficulty ambulating. Lip numbness. No headache, vertigo, loss of consciousness, or other change in strength/sensation. ENDOCRINE: No increased thirst. No abnormal weight change HEMATOLOGIC/LYMPHATIC: No anemia, easy bleeding, or history of blood clots. ALLERGIC/IMMUNOLOGIC: No hives or skin allergy. *Physical Exam - Vital Signs Last Vital Signs Temp Pulse Resp BP Pulse Ox 98.3 F 79 20 108/54 L 100 10/01/19 06:24 10/01/19 06:24 10/01/19 06:24 10/01/19 06:24 09/30/19 21:00 - Physical Exam GENERAL: Awake, alert, and fully oriented, in no acute distress HEAD: No signs of trauma, normocephalic, atraumatic EYES: PERRLA, EOMI, sclera anicteric, conjunctiva clear ENT: Auricles normal inspection, hearing grossly normal, nares patent, oropharynx clear without exudates. Moist mucosa NECK: Normal ROM, supple, no lymphadenopathy, JVD, or masses LUNGS: No distress, speaks full sentences, clear to auscultation bilaterally HEART: Regular rate and rhythm, normal S1 and S2, no murmurs, rubs or gallops, peripheral pulses normal and equal bilaterally. ABDOMEN: Soft, nontender, normoactive bowel sounds. No guarding, no rebound. No masses EXTREMITIES : Normal inspection, Normal range of motion, no edema. No clubbing or cyanosis NEUROLOGICAL: 4/5 strength in RUE, RLE. Ataxic gait. Cranial nerves II through XII grossly intact. Normal speech, no focal sensorimotor deficits SKIN: Warm, Dry, normal turgor, no rashes or lesions noted ED Treatment Course - LABORATORY CBC & Chemistry Diagram: 10/05/19 06:55 10/05/19 06:55 - ADDITIONAL ORDERS Additional order review: 09/30/19 11:30 RBC 5.23 H MCV 85.3 MCHC 33.0 RDW 13.5 MPV 9.9 Neutrophils % 74.1 D Lymphocytes % 18.6 D Monocytes % 5.2 Eosinophils % 1.5 Basophils % 0.6 - Medications Given in the ED: ED Medications Discontinued Medications Generic Name Dose Route Start Last Admin Trade Name Ben PRN Reason Stop Dose Admin Aspirin 243 mg 09/30/19 12:45 09/30/19 13:51 Asa - PO 09/30/19 12:46 243 mg ONCE ONE Administration Atorvastatin Calcium 40 mg 09/30/19 12:47 09/30/19 13:51 Lipitor - PO 09/30/19 12:48 40 mg ONCE ONE Administration Atorvastatin Calcium 40 mg 09/30/19 17:24 09/30/19 17:54 Lipitor - PO 09/30/19 17:25 Not Given ONCE ONE Medical Decision Making - Medical Decision Making 64F w/hx CAD s/p cardiac stenting, recent ischemic CVA one month ago with recent discharge from rehab facility, HTN, HLD, DM p/w worsening R sided weakness, difficulty ambulating concerning for CVA. Ddx posterior/cerebellar CVA given difficulty ambulating, ICH, metabolic derangement. Plan: CT Head BGM EKG CXR PT/INR, APTT CBC CMP Cardiac profile Neuro consult Dispo: Admit --- CT Head - negative for acute process Case discussed with neurology, plan for admission to stroke unit for MRI, further neuro eval. Discharge - Discharge Information Problems reviewed: Yes Clinical Impression/Diagnosis: CVA (cerebral vascular accident) Qualifiers: CVA mechanism: unspecified Qualified Code(s): I63.9 - Cerebral infarction, unspecified Condition: Stable - Admission Yes - Follow up/Referral - Patient Discharge Instructions - Post Discharge Activity
--- NOTE | 2019-10-01 09:28 | EKG ---
Test Reason : Blood Pressure : / mmHG Vent. Rate : 065 BPM Atrial Rate : 065 BPM P-R Int : 114 ms QRS Dur : 080 ms QT Int : 440 ms P-R-T Axes : 043 030 069 degrees QTc Int : 457 ms NORMAL SINUS RHYTHM POSSIBLE ANTERIOR INFARCT , AGE UNDETERMINED ABNORMAL ECG WHEN COMPARED WITH ECG OF 01-SEP-2019 18:11, NO SIGNIFICANT CHANGE WAS FOUND Confirmed by STEPHANI HENAO MD ([id number]) on 10/01/2019 9:28:10 AM Referred By: Confirmed By:STEPHANI HENAO MD
--- NOTE | 2019-10-01 09:42 | CON.NEURO ---
Consult - Past Medical History ...: No - Alcohol/Substance Use Hx Alcohol Use: No - Smoking History Smoking history: Never smoked Have you smoked in the past 12 months: No Home Medications - Allergies Allergies/Adverse Reactions: Allergies Allergy/AdvReac Type Severity Reaction Status Date / Time enoxaparin [From Lovenox] Allergy Intermediate Rash Verified 09/30/19 18:47 - Home Medications Home Medications: Ambulatory Orders Metoprolol Succinate [Toprol XL -] 25 mg PO DAILY tab.sr.24h 09/23/18 Lancets [Lancets Thin] 1 each MC DAILY #100 each 09/04/19 Miscellaneous Medical Supply [Glucometer Device] 1 each SQ ASDIR #1 kit 09/04/19 Aspirin [ASA -] 81 mg PO DAILY 09/30/19 Atorvastatin Ca [Lipitor] 40 mg PO HS 09/30/19 Clopidogrel Bisulfate [Plavix] 75 mg PO DAILY 09/30/19 Dapagliflozin Propanediol [Farxiga] 10 mg PO DAILY 09/30/19 Enalapril Maleate [Vasotec -] 20 mg PO DAILY 09/30/19 Meclizine HCl 12.5 mg PO DAILY 09/30/19 Metformin HCl [Glucophage] 500 mg PO HS 09/30/19 Physical Exam-Neuro Vital Signs: Vital Signs Temperature 98.3 F 10/01/19 06:24 Pulse Rate 79 10/01/19 06:24 Respiratory Rate 20 10/01/19 06:24 Blood Pressure 108/54 L 10/01/19 06:24 O2 Sat by Pulse Oximetry (%) 100 09/30/19 21:00 Labs: CBC, BMP 10/01/19 05:47 10/01/19 05:47 INR, PTT INR 1.02 (0.83-1.09) 09/30/19 11:30 Assessment/Plan CC Dysarhtria , nausea, dysbalance for one day prior to admission HPI 64 year old female history of cad s/p stent in 2019 on apsirin and statin. Patient has histor of HTN,DM,HLD Migraine and residual weakness from previous stroke on right side. She had slurring of speech, left face droopiness and dsysbalance. patient was brought fo suspected stroke. Initial ct head was negative and later mri ofbrain was showed left midlbrain and layo acute ischemic stroke. Patient continue to have dyssbalance and slurring of speech. Recent Travel: denies PAST MEDICAL HISTORY: as above PAST SURGICAL HISTORY: PCI w/ stent 2018 Social History: denies x3 Allergies No Known Allergies Allergy (Verified 09/01/19 19:12) HOME MEDICATIONS: Home Medications Medication Instructions Recorded Clopidogrel Bisulfate [Plavix -] 75 mg PO DAILY tablet 09/23/18 Metoprolol Succinate [Toprol XL -] 25 mg PO DAILY tab.sr.24h 09/23/18 Farxiga 10 mg PO DAILY 09/01/19 Gemfibrozil 600 mg PO DAILY 09/01/19 Aspirin [Aspirin EC] 81 mg PO DAILY 09/02/19 Atorvastatin Ca [Lipitor] 40 mg PO HS 09/02/19 Enalapril Maleate [Vasotec -] 30 mg PO DAILY #30 tablet 09/04/19 Lancets [Lancets Thin] 1 each MC DAILY #100 each 09/04/19 Miscellaneous Medical Supply 1 each SQ ASDIR #1 kit 09/04/19 [Glucometer Device] Miscellaneous Medical Supply 1 each SQ ASDIR #1 box 09/04/19 [Glucometer Test Strips #100] Sitagliptin Phos/Metformin HCl 1 tab PO DAILY #30 tab 09/04/19 [Janumet Xr 100-1,000 mg Tablet] ROS,FH,SH reviewed in chart NEUROLOGICAL EXAMINATION Alert oriented x 3, speech is slurred vss eomi, pupils reactive no face asymmetry right sided mild weakness ct head unremarkable mri of brain showed there is left pontine and midbrain stroke Assessment Brain stem infarct, 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 she was on aspirin , plavix and statin Plan: continue aspirin and statin - carotid ultrasound finding reviewed -speech therapy, dvt prophylaxis, pt - increase lipitor to 80 m gonce a day - life style modifications - cardiac monitoring , need loop recording Thanking you so much Arnulfo Wiley MD
--- NOTE | 2019-10-01 10:46 | CON.CARD ---
Cardiology Consult (text) - Consultation Consultation Note: cc: slurred speech, facial droop hpi: 64 f hx htn, hld, dm, cad s/p pci 09/2018 after +mibi, cvas (last was 08/2019) here with slurred speech, facial droop. Pt has no cp sob palps dizzy loc pnd orthopnea le edema. Found to have new cva. pmh: per hpi psh: pci social: no tob fam: no premature cad, scd ros: per hpi, all others nl meds: Ambulatory Orders Metoprolol Succinate [Toprol XL -] 25 mg PO DAILY tab.sr.24h 09/23/18 Lancets [Lancets Thin] 1 each MC DAILY #100 each 09/04/19 Miscellaneous Medical Supply [Glucometer Device] 1 each SQ ASDIR #1 kit 09/04/19 Aspirin [ASA -] 81 mg PO DAILY 09/30/19 Atorvastatin Ca [Lipitor] 40 mg PO HS 09/30/19 Clopidogrel Bisulfate [Plavix] 75 mg PO DAILY 09/30/19 Dapagliflozin Propanediol [Farxiga] 10 mg PO DAILY 09/30/19 Enalapril Maleate [Vasotec -] 20 mg PO DAILY 09/30/19 Meclizine HCl 12.5 mg PO DAILY 09/30/19 Metformin HCl [Glucophage] 500 mg PO HS 09/30/19 pe: Vital Signs Period Temp Pulse Resp BP Sys/Puckett Pulse Ox Last 24 Hr 97.8 F-98.6 F 57-79 17-20 108-152/54-72 98-100 nad no jvd rrr s1s2 no mrg cta bl nl eff aao3 no le e/c/c abd nt nd pos bs no jaundice diaphoresis pos dp pt no carotid bruits Laboratory Last Values WBC 8.4 K/mm3 (4.0-10.0) 10/01/19 05:47 RBC 5.31 M/mm3 (3.60-5.2) H 10/01/19 05:47 Hgb 14.7 GM/dL (10.7-15.3) 10/01/19 05:47 Hct 44.6 % (32.4-45.2) 10/01/19 05:47 MCV 84.0 fl (80-96) 10/01/19 05:47 MCH 27.7 pg (25.7-33.7) 10/01/19 05:47 MCHC 33.0 g/dl (32.0-36.0) 10/01/19 05:47 RDW 13.3 % (11.6-15.6) 10/01/19 05:47 Plt Count 279 K/MM3 (134-434) 10/01/19 05:47 MPV 10.0 fl (7.5-11.1) 10/01/19 05:47 Absolute Neuts (auto) 4.6 K/mm3 (1.5-8.0) 10/01/19 05:47 Neutrophils % 55.1 % (42.8-82.8) D 10/01/19 05:47 Lymphocytes % 35.8 % (8-40) D 10/01/19 05:47 Monocytes % 6.1 % (3.8-10.2) 10/01/19 05:47 Eosinophils % 2.3 % (0-4.5) 10/01/19 05:47 Basophils % 0.7 % (0-2.0) 10/01/19 05:47 Nucleated RBC % 0 % (0-0) 10/01/19 05:47 PT with INR 12.00 SEC (9.7-13.0) 09/30/19 11:30 INR 1.02 (0.83-1.09) 09/30/19 11:30 PTT (Actin FS) 32.1 SECONDS (25.2-36.5) 09/30/19 11:30 Sodium 139 mmol/L (136-145) 10/01/19 05:47 Potassium 4.3 mmol/L (3.5-5.1) 10/01/19 05:47 Chloride 108 mmol/L (98-107) H 10/01/19 05:47 Carbon Dioxide 23 mmol/L (21-32) 10/01/19 05:47 Anion Gap 9 MMOL/L (8-16) 10/01/19 05:47 BUN 14.8 mg/dL (7-18) 10/01/19 05:47 Creatinine 0.7 mg/dL (0.55-1.3) 10/01/19 05:47 Est GFR (CKD-EPI)AfAm 106.87 10/01/19 05:47 Est GFR (CKD-EPI)NonAf 92.21 10/01/19 05:47 Random Glucose 128 mg/dL (74-106) H 10/01/19 05:47 Hemoglobin A1c % 9.2 % (4.2-6.3) H 09/30/19 21:00 Calcium 9.6 mg/dL (8.5-10.1) 10/01/19 05:47 Total Bilirubin 0.8 mg/dL (0.2-1) 10/01/19 05:47 AST 24 U/L (15-37) 10/01/19 05:47 ALT 47 U/L (13-61) 10/01/19 05:47 Alkaline Phosphatase 96 U/L (45-117) 10/01/19 05:47 Creatine Kinase 374 U/L (26-192) H 09/30/19 11:30 Creatine Kinase Index No Result Required. 09/30/19 11:30 CK-MB (CK-2) < 1.0 ng/mL (0.5-3.6) 09/30/19 11:30 Troponin I 0.06 ng/ml (0.00-0.05) H 09/30/19 11:30 Total Protein 6.9 g/dl (6.4-8.2) 10/01/19 05:47 Albumin 3.6 g/dl (3.4-5.0) 10/01/19 05:47 Triglycerides 178 mg/dL (0-150) H 09/30/19 21:00 Cholesterol 183 mg/dL (50-200) 09/30/19 21:00 Total LDL Cholesterol 110 mg/dL (5-100) H 09/30/19 21:00 HDL Cholesterol 41 mg/dL (40-60) 09/30/19 21:00 TSH 0.43 uIU/ml (0.358-3.74) 09/30/19 21:00 Urine Color Yellow 09/30/19 21:20 Urine Appearance Clear 09/30/19 21:20 Urine pH 7.5 (5.0-8.0) 09/30/19 21:20 Ur Specific [place] 1.016 (1.010-1.035) 09/30/19 21:20 Urine Protein Negative (NEGATIVE) 09/30/19 21:20 Urine Glucose (UA) 3+ (NEGATIVE) H 09/30/19 21:20 Urine Ketones Negative (NEGATIVE) 09/30/19 21:20 Urine Blood Negative (NEGATIVE) 09/30/19 21:20 Urine Nitrite Negative (NEGATIVE) 09/30/19 21:20 Urine Bilirubin Negative (NEGATIVE) 09/30/19 21:20 Urine Urobilinogen 1.0 mg/dL (0.2-1.0) 09/30/19 21:20 Ur Leukocyte Esterase Negative (NEGATIVE) 09/30/19 21:20 Blood Type O POSITIVE 09/30/19 11:30 Antibody Screen Negative 09/30/19 11:30 ecg: sr nl intervals no ischemic changes tele: sr echo 08/2019: mild lvh, nl lvef, nl rv, no sig valve path a/p: 64 f hx htn, hld, dm, cad s/p pci 09/2018 after +mibi, cvas (last was 08/2019) here with slurred speech, facial droop. acute cva: -pt here with cva, also here recently for same -echo and carotids unremarkable -tele has been benign on both admits. will need outpt extended monitoring with event monitor or loop recorder to detect occult afib. cont tele while here. -cont current cardiac meds. neuro following. htn: -cont home med hld: -cont statin cad, pci: -no signs acs -borderline trop elevation with nl ckmb, similar to prior baselines, not c/w acs -cont statin, bb, dapt
[2019-10-01] MEDS: TRIAMCINOLONE ACET 0.1% OINT 15 GM TUBE TP SCH (16:57)
[2019-10-01] MEDS: CLOPIDOGREL BISULFATE 75 MG TABLET (FP) PO SCH (16:57)
[2019-10-01] MEDS: ASPIRIN COATED 81 MG TABLET.EC PO SCH (16:57)
--- NOTE | 2019-10-01 17:22 | PN ---
Progress Note, Physician History of Present Illness: Patient seen and examined at bedside. She endorses having a rash on her abdomen. She states she has had it for about 3 weeks. She believes it is a reaction to Lovenox. She endorses feeling tired. She denies nausea vomiting fever chills chest pain or SOB. - Current Medication List Current Medications: Active Medications Aspirin (Ecotrin -) 81 mg PO DAILY [facility] Last Admin: 10/01/19 16:57 Dose: 81 mg Documented by: Atorvastatin Calcium (Lipitor -) 80 mg PO HS JUAN Clopidogrel Bisulfate (Plavix -) 75 mg PO DAILY [facility] Last Admin: 10/01/19 16:57 Dose: 75 mg Documented by: Diphenhydramine HCl (Benadryl -) 25 mg PO Q12H PRN PRN Reason: FOR ITCHING Metoprolol Succinate (Toprol Xl -) 25 mg PO DAILY [facility] Triamcinolone Acetonide (Aristocort 0.1% Ointment -) 1 applic TP DAILY [facility] Last Admin: 10/01/19 16:57 Dose: 1 applic Documented by: - Objective Vital Signs: Vital Signs Temperature 97.5 F L 10/01/19 10:00 Pulse Rate 71 10/01/19 10:00 Respiratory Rate 18 10/01/19 10:00 Blood Pressure 114/55 L 10/01/19 10:00 O2 Sat by Pulse Oximetry (%) 95 10/01/19 09:00 Constitutional: Yes: Well Nourished, No Distress, Calm Eyes: Yes: Conjunctiva Clear, EOM Intact HENT: Yes: Atraumatic Neck: Yes: Supple Cardiovascular: Yes: Regular Rate and Rhythm Respiratory: Yes: CTA Bilaterally Gastrointestinal: Yes: Normal Bowel Sounds, Soft. No: Tenderness Musculoskeletal: No: Muscle Weakness Edema: No Neurological: Yes: Alert, Other (hyperactive knee jerk bilaterally) Additional Findings/Remarks: CN 2-12 are intact grossly. Labs: CBC, BMP 10/01/19 05:47 10/01/19 05:47 INR, PTT INR 1.02 (0.83-1.09) 09/30/19 11:30 - ....Imaging MRI: Report Reviewed, Image Reviewed Impression/Plan Impression/Plan: 64 F with a PMH of HTN HLD CAD s/p PCI who presents with dysarthria facial weakness numbness and tingling HTN-BP on lower end so will hold antihypertensives for now as her BP has been on the lower end today but will give metoprolol to avoid beta barrett withdrawal. If becomes hypertensive can restart home enalapril. HLD-Lipitor increased from 40mg to 80mg QHS. Lipid panel noted CAD s/p stent-continue ASA/Plavix Migraines-not active at this time CVA-Acute infarct is seen within the central and left paramedian aspects w/ R sided weakness/numbness-weakness and numbness have resolved. Troponemia-likely demand-f/u cards DM-A1C 9.2% Fingersticks q6h with ISS while NPO. On 4 oral hypoglycemics as o utpt. continue asa/plavix patient's SBP has been on the lower end so ok to continue to hold her ant ihypertensives. MRI brain noted Carotid US, Echo A1C noted 9.2% Serial neuro exams Tele monitoring Neurology following Cardiology evaluation for trop leak Visit type - Emergency Visit Emergency Visit: Yes ED Registration Date: 09/30/19 Care time: The patient presented to the Emergency Department on the above date and was hospitalized for further evaluation of their emergent condition. - New Patient This patient is new to me today: Yes Date on this admission: 10/01/19 - Critical Care Critical Care patient: No
[2019-10-01] MEDS: metoPROLOL SUCCINATE 25 MG TAB.SR.24H (FP) PO SCH (18:15)
[2019-10-01] MEDS: INSULIN SLIDING SCALE (NOVOLOG) 1 VIAL SQ SCH (18:16)
[2019-10-01] MEDS: HEPARIN NA (PORCINE) 5,000 UNITS/ML 1ML VIAL SQ SCH (22:54)
[2019-10-01] MEDS: ATORVASTATIN CA 80 MG TABLET (FP) PO SCH (22:55)
[2019-10-02] MEDS: INSULIN SLIDING SCALE (NOVOLOG) 1 VIAL SQ SCH ×5 (01:07→21:39)
[2019-10-02] MEDS: HEPARIN NA (PORCINE) 5,000 UNITS/ML 1ML VIAL SQ SCH ×3 (06:18→21:30)
[2019-10-02] MEDS: CLOPIDOGREL BISULFATE 75 MG TABLET (FP) PO SCH (09:22)
[2019-10-02] MEDS: metoPROLOL SUCCINATE 25 MG TAB.SR.24H (FP) PO SCH (09:22)
[2019-10-02] MEDS: ASPIRIN COATED 81 MG TABLET.EC PO SCH (09:22)
--- NOTE | 2019-10-02 09:22 | CONSULT ---
Admitting History and Physical - Primary Care Physician PCP: Richar Lobo - Admission History of Present Illness: 64 year old female history of cad s/p stent in 2019, HTN,DM,HLD Migraine and residual weakness from previous stroke on right side. Admitted for slurring of speech, left face droop and imbalance. ct head was negative mri ofbrain was showed left midlbrain and layo acute ischemic stroke. Pt passed Dysphagia screen on 08/30 x 2. NPO (concern for aspiration), Tolerating medication per EMR. Selected Entries 09/30/19 09/30/19 09/30/19 15:00 23:00 23:13 Intake, Oral 60 0 Amount Supper NPO Temperature 10/01/19 10/01/19 10/01/19 06:00 22:00 22:52 Intake, Oral 0 30 0 Amount Supper NPO NPO Temperature 10/02/19 10/02/19 02:00 06:57 Intake, Oral Amount Supper Temperature 98.2 F 97.4 F L Laboratory Tests 09/30/19 11:30 WBC 12.5 H History Source: Patient Limitations to Obtaining History: No Limitations - Past Medical History ...: No - Smoking History Smoking history: Never smoked Have you smoked in the past 12 months: No - Alcohol/Substance Use Hx Alcohol Use: No History - Admission Reason For Visit: CEREBROVASULAR ACCIDENT(CVA) - Diagnostics X-ray: Report Reviewed CT Scan: Report Reviewed MRI: Report Reviewed Modified Barium Swallow: Report Reviewed (09/04/19 (-) aspiration, mildly labored mastication) - General Mental Status: Alert and Oriented, Awake and Alert Attention: Intact Ability to Follow Directions: Excellent Head/Neck Control: WFL - Hearing Hearing: Normal Speech Evaluation - Communication Primary Language: MALIAN Communication: Yes: Dysarthria Oral Expression Ability: Yes: Mild Impairment - Speech Production Able to Make Needs Known: Yes: WNL Intelligibility: Yes: Mildly Impaired - Speech Characteristics Voice Loudness: Normal Voice Pitch: Yes: Normal Voice Phonatory-based Quality: Yes: Normal Speech Pattern: Impaired Speech Clarity: < 100% Nasal Resonance: Normal Articulation: Yes: Imprecise (slight) - Language/Auditory Comprehension Follows: Yes: 2 Stage Simple Commands Observation: Able to respond to yes/no queries: Yes, Yes/No Confusion: No, Comprehends Conversational Speech: Yes - Language/Verbal Expression Able to Respond to Simple Queries: Yes: WNL Able to Communicate Wants and Needs: Yes: WNL Functional Communication Status: Yes: WNL - Swallow Evaluation/Bedside Assessment Current Nutritional Intake: NPO Oral Secretions: Yes: WFL Dentition: Yes: Adequate Facial Symmetry at Rest: Symmetrical Facial Symmetry on Retraction: Symmetrical Against Resistance Opening: Weak Against Resistance Closing: Weak Pucker Lips: Normal, Weak Smile: Normal, Weak Lingual Movement: Normal, Symmetric Lingual Speed of Movement: Reduced Lingual Movement Strgth Against Opposition: Reduced Velopharyngeal Movement: Normal Laryngeal Elevation: WFL Laryngeal Movement: Able to Palpate, Labored,delay initiation Needs Assistance: Yes Rate of Intake: Slow/Holding Bolus Size: Small Labial Seal: WFL Chewing: Impaired (mildly labored) Oral Prep Time: Increased A-P Transit: Impaired Pocketing: None Timing of Swallow: Delayed Coughing/Throat Clear: Yes (intermittent on thin liquid via straw) Change in Voice: No Recommendations - Speech Evaluation, Impression/Plan Impression: Intermittent cough with thin liquid when assessed via straw, not fully upright. Swallow mildly delayed in onset - Disposition Discharge to: To be Determined - Dysphagia Impressions/Plan Swallowing Skills: Impaired Dysphagia Impressions: Mild Impairment *Silent aspiration: cannot be R/O at bedside Dysphagia Treatment Plan: Small Bites, Chin Tuck/Down, Clear Pocket Food, Facilitative Feeding, Safe Rate, 1/2 tsp. at a time, Elevate HOB during feed, OOB for meals, OOB for 1 h. after meals Recommendations: Other (single sips, no straw) - Recommendations Diet Consistency: Dysphagia Whole Liquids: Thin Liquids (if cough, downgrade to nectar thick and mbs) Supplement: Ensure, Ensure Pudding
[2019-10-02] MEDS: TRIAMCINOLONE ACET 0.1% OINT 15 GM TUBE TP SCH (09:25)
--- NOTE | 2019-10-02 10:16 | PN ---
Progress Note (short form) - Note Progress Note: 64 year old female history of cad s/p stent in 2019 on apsirin and statin. Patient has histor of HTN,DM,HLD Migraine and residual weakness from previous stroke on right side. She had slurring of speech, left face droopiness and dsysbalance. patient was brought fo suspected stroke. Initial ct head was negative and later mri ofbrain was showed left midlbrain and layo acute ischemic stroke. Patient continue to have dyssbalance and slurring of speech. Patient feeling b dave, no new symptoms, she passed swallowing test NEUROLOGICAL EXAMINATION Alert oriented x 3, speech is slurred vss eomi, pupils reactive no face asymmetry right sided mild weakness mild right facial umn type weakness notifeied ct head unremarkable mri of brain showed there is left pontine and midbrain stroke Assessment Brain stem infarct, 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 she was on aspirin , plavix and statin Plan: continue aspirin and statin - carotid ultrasound finding unremarkable -speech therapy, dvt prophylaxis, pt - continue statin and antiplatelet - life style modifications - cardiac monitoring , need loop recording Thanking you so much Arnulfo Wiley MD
--- NOTE | 2019-10-02 10:25 | PN ---
Progress Note (short form) - Note Progress Note: s: no cp sob palps dizzy Current Medications Generic Name Dose Route Start Last Admin Trade Name Freq PRN Reason Stop Dose Admin Aspirin 81 mg 10/01/19 10:00 10/02/19 09:22 Ecotrin - PO 81 mg DAILY JUAN Administration Atorvastatin Calcium 80 mg 10/01/19 22:00 10/01/19 22:55 Lipitor - PO 80 mg HS JUAN Administration Clopidogrel Bisulfate 75 mg 10/01/19 10:00 10/02/19 09:22 Plavix - PO 75 mg DAILY JUAN Administration Diphenhydramine HCl 25 mg 09/30/19 17:43 Benadryl - PO Q12H PRN FOR ITCHING Heparin Sodium (Porcine) 5,000 unit 10/01/19 22:00 10/02/19 06:18 Heparin - SQ 5,000 unit TID JUAN Administration Insulin Aspart 1 vial 10/01/19 18:00 10/02/19 06:14 Novolog Vial Sliding Scale - SQ Not Given Q6HPO [facility] Protocol Metoprolol Succinate 25 mg 10/01/19 17:15 10/02/19 09:22 Toprol Xl - PO 25 mg DAILY JUAN Administration Triamcinolone Acetonide 1 applic 09/30/19 17:30 10/02/19 09:25 Aristocort 0.1% Ointment - TP 1 applic DAILY JUAN Administration Vital Signs Period Temp Pulse Resp BP Sys/Puckett Pulse Ox Last 24 Hr 97.4 F-99.0 F 69-88 18-19 112-139/64-76 94 nad no jvd rrr s1s2 no mrg cta bl nl eff aao3 no le e/c/c abd nt nd pos bs no jaundice diaphoresis CBC, BMP 10/01/19 05:47 10/01/19 05:47 ecg: sr nl intervals no ischemic changes tele: sr echo 08/2019: mild lvh, nl lvef, nl rv, no sig valve path a/p: 64 f hx htn, hld, dm, cad s/p pci 09/2018 after +mibi, cvas (last was 08/2019) here with slurred speech, facial droop. acute cva: -pt here with cva, also here recently for same -echo and carotids unremarkable -tele has been benign on both admits. will need outpt extended monitoring with event monitor or loop recorder to detect occult afib. cont tele while here. -cont current cardiac meds. neuro following. htn: -cont home med hld: -cont statin cad, pci: -no signs acs -borderline trop elevation with nl ckmb, similar to prior baselines, not c/w acs -cont statin, bb, dapt
--- NOTE | 2019-10-02 17:22 | PN ---
Physical Exam: SUBJECTIVE: Patient seen and examined at the bedside. awake, alert. in no acute pain. OBJECTIVE: Patient seen and examined at bedside. She endorses having a rash on her abdomen for about 3 weeks. She believes it is a reaction to Lovenox when she was at rehab. She endorses feeling tired. She denies nausea vomiting fever chills chest pain or SOB. Initial ct head was negative but brain MRI showed left midlbrain and layo acute ischemic stroke. Patient continue to have dyssbalance and slurring of speech. she passed swallowing test. She states she complies with home meds. past medical history: h/o CAD S/P cath (stent) 2019, HTN, T2DM, HLD, migraine headaches, CVA w/ R sided residual weakness/numbness Vital Signs Period Temp Pulse Resp BP Sys/Puckett Pulse Ox Last 24 Hr 97.4 F-99.0 F 69-88 18-19 112-139/64-76 94-94 GENERAL: The patient is awake, alert, and fully oriented, in no acute distress. speech cleared but mildy slow HEAD: Normal with no signs of trauma. EYES: PERRL, extraocular movements intact, sclera anicteric, conjunctiva clear. No ptosis. ENT: Ears normal, nares patent, oropharynx clear without exudates, moist mucous membranes. NECK: Trachea midline, full range of motion, supple. LUNGS: Breath sounds equal, clear to auscultation bilaterally HEART: Regular rate and rhythm ABDOMEN: multiple blotchy areas s/p injections from Lovenox? EXTREMITIES: no edema. NEUROLOGICAL: Normal speech, gait not observed. PSYCH: Normal mood, normal affect. Laboratory Results - last 24 hr 09/30/19 10/01/19 10/01/19 14:20 17:27 22:58 POC Glucometer 134 102 COVID-19 (LOCO) Not detected Active Medications Generic Name Dose Route Start Last Admin Trade Name Parvizq PRN Reason Stop Dose Admin Aspirin 81 mg 10/01/19 10:10/02/19 09:22 Ecotrin - PO 81 mg DAILY JUAN Administration Atorvastatin Calcium 80 mg 10/01/19 22:00 10/01/19 22:55 Lipitor - PO 80 mg HS JUAN Administration Clopidogrel Bisulfate 75 mg 10/01/19 10:10/02/19 09:22 Plavix - PO 75 mg DAILY JUAN Administration Diphenhydramine HCl 25 mg 09/30/19 17:43 Benadryl - PO Q12H PRN FOR ITCHING Heparin Sodium (Porcine) 5,000 unit 10/01/19 22:00 10/02/19 15:01 Heparin - SQ Not Given TID [facility] Insulin Aspart 1 vial 10/01/19 18:00 10/02/19 12:03 Novolog Vial Sliding Scale - SQ Not Given Q6HPO [facility] Protocol Metoprolol Succinate 25 mg 10/01/19 17:15 10/02/19 09:22 Toprol Xl - PO 25 mg DAILY JUAN Administration Triamcinolone Acetonide 1 applic 09/30/19 17:30 10/02/19 09:25 Aristocort 0.1% Ointment - TP 1 applic DAILY JUAN Administration ASSESSMENT/PLAN: Problem List - Problems (1) Stroke Assessment/Plan: Initial ct head was negative but brain MRI showed left midlbrain and layo acute ischemic stroke. Patient continue to have dyssbalance and slurring of speech. she passed swallowing test. She states she complies with home meds. On lipitor 80mg daily on ASA and Plavix daily Neuro following BP stable will need outpatient loop recorder to further evaluate on heparin prophylaxis neuro following Code(s): I63.9 - CEREBRAL INFARCTION, UNSPECIFIED Qualifiers: CVA mechanism: unspecified Qualified Code(s): I63.9 - Cerebral infarction, unspecified (2) Difficulty swallowing Assessment/Plan: passed swallow test Code(s): R13.10 - DYSPHAGIA, UNSPECIFIED Qualifiers: Dysphagia type: unspecified Qualified Code(s): R13.10 - Dysphagia, unspecified (3) Elevated troponin I level Code(s): R74.8 - ABNORMAL LEVELS OF OTHER SERUM ENZYMES (4) Slurred speech Assessment/Plan: patient with history of multple strokes, will seen by speech and swallow may benefit for rehab Code(s): R47.81 - SLURRED SPEECH (5) Type 2 diabetes mellitus Assessment/Plan: monitor hmg a1c outpatient on novolog Code(s): E11.9 - TYPE 2 DIABETES MELLITUS WITHOUT COMPLICATIONS Qualifiers: Diabetes mellitus jail insulin use: without tank terminal gauger use Diabetes mellitus complication status: with circulatory complication Diabetes mellitus complication detail: with other circulatory complications Qualified Code(s): E11.59 - Type 2 diabetes mellitus with other circulatory complications Visit type - Emergency Visit Emergency Visit: Yes ED Registration Date: 09/30/19 Care time: The patient presented to the Emergency Department on the above date and was hospitalized for further evaluation of their emergent condition. - New Patient This patient is new to me today: Yes Date on this admission: 10/02/19 - Critical Care Critical Care patient: No - Discharge Referral Referred to [facility] Med P.C.: No
[2019-10-02] MEDS ORDERED: HYDROCORTISONE 1% TOPICAL CREAM 30 GM TUBE TP SCH (19:00)
[2019-10-02] MEDS: ATORVASTATIN CA 80 MG TABLET (FP) PO SCH (21:30)
[2019-10-02] MEDS: diphenhydrAMINE HCL 25 MG CAPSULE (FP) PO PRN (22:39)
[2019-10-03] MEDS: HEPARIN NA (PORCINE) 5,000 UNITS/ML 1ML VIAL SQ SCH ×3 (05:10→21:15)
[2019-10-03] MEDS: INSULIN SLIDING SCALE (NOVOLOG) 1 VIAL SQ SCH ×4 (06:00→21:22)
[2019-10-03 08:33] LABS: BASO % 0.7 % (0-2.0); EOS % 2.9 % (0-4.5); HEMATOCRIT 50.1 % (32.4-45.2); HEMOGLOBIN 16.4 GM/dL (10.7-15.3); MCH 28.1 pg (25.7-33.7); MCHC 32.8 g/dl (32.0-36.0); MEAN CELL VOLUME 85.9 fl (80-96); MONO % 7.6 % (3.8-10.2); NEUT % 62.8 % (42.8-82.8); PLATELET COUNT 251 K/MM3 (134-434); RBC 5.83 M/mm3 (3.60-5.2); RDW 13.5 % (11.6-15.6); WHITE BLOOD COUNT 9.6 K/mm3 (4.0-10.0)
[2019-10-03 08:56] LABS: ALBUMIN 3.7 g/dl (3.4-5.0); BILIRUBIN,TOTAL 0.7 mg/dL (0.2-1); BLOOD UREA NITROGEN 13.5 mg/dL (7-18); CALCIUM 9.1 mg/dL (8.5-10.1); CREATININE 0.7 mg/dL (0.55-1.3); MAGNESIUM 1.9 mg/dL (1.8-2.4); POTASSIUM 4.4 mmol/L (3.5-5.1); TOT PROT 7.5 g/dl (6.4-8.2)
[2019-10-03] MEDS: CLOPIDOGREL BISULFATE 75 MG TABLET (FP) PO SCH (09:49)
[2019-10-03] MEDS: diphenhydrAMINE HCL 25 MG CAPSULE (FP) PO PRN (09:49)
[2019-10-03] MEDS: ASPIRIN COATED 81 MG TABLET.EC PO SCH (09:49)
[2019-10-03] MEDS: metoPROLOL SUCCINATE 25 MG TAB.SR.24H (FP) PO SCH (09:49)
[2019-10-03] MEDS: TRIAMCINOLONE ACET 0.1% OINT 15 GM TUBE TP SCH (09:50)
--- NOTE | 2019-10-03 11:31 | PN ---
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 Noted to have straw in water pitcher Reviewed with pt-HOB elevated, ideally OOB for PO intake, chin to neutral or flexed Small careful sips. No continuous drinking and eliminate straws Monitor tolerance, especially for thin liquids Braulio for rehab
--- NOTE | 2019-10-03 12:35 | PN ---
Progress Note (short form) - Note Progress Note: s: no cp sob palps dizzy Current Medications Generic Name Dose Route Start Last Admin Trade Name Freq PRN Reason Stop Dose Admin Aspirin 81 mg 10/01/19 10:00 10/03/19 09:49 Ecotrin - PO 81 mg DAILY JUAN Administration Atorvastatin Calcium 80 mg 10/01/19 22:00 10/02/19 21:30 Lipitor - PO 80 mg HS JUAN Administration Clopidogrel Bisulfate 75 mg 10/01/19 10:00 10/03/19 09:49 Plavix - PO 75 mg DAILY JUAN Administration Diphenhydramine HCl 25 mg 09/30/19 17:43 10/03/19 09:49 Benadryl - PO 25 mg Q12H PRN Administration FOR ITCHING Heparin Sodium (Porcine) 5,000 unit 10/01/19 22:00 10/03/19 05:10 Heparin - SQ 5,000 unit TID JUAN Administration Insulin Aspart 1 vial 10/02/19 22:00 10/03/19 11:42 Novolog Vial Sliding Scale - SQ 2 units ACHS JUAN Administration Protocol Metoprolol Succinate 25 mg 10/01/19 17:15 10/03/19 09:49 Toprol Xl - PO 25 mg DAILY JUAN Administration Triamcinolone Acetonide 1 applic 09/30/19 17:30 10/03/19 09:50 Aristocort 0.1% Ointment - TP 1 applic DAILY JUAN Administration Vital Signs Period Temp Pulse Resp BP Sys/Puckett Pulse Ox Last 24 Hr 97.5 F-98.4 F 60-85 16-18 115-146/58-76 96 nad no jvd rrr s1s2 no mrg cta bl nl eff aao3 no le e/c/c abd nt nd pos bs no jaundice diaphoresis ecg: sr nl intervals no ischemic changes tele: sr, PVCs echo 08/2019: mild lvh, nl lvef, nl rv, no sig valve path a/p: 64 f hx htn, hld, dm, cad s/p pci 09/2018 after +mibi, cvas (last was 08/2019) here with slurred speech, facial droop. acute cva: -pt here with cva, also here recently for same -echo and carotids unremarkable -tele has been benign on both admits. will need outpt extended monitoring with event monitor or loop recorder to detect occult afib. cont tele while here. -cont current cardiac meds. neuro following. htn: -cont home med hld: -cont statin cad, pci: -no signs acs -borderline trop elevation with nl ckmb, similar to prior baselines, not c/w acs -cont statin, bb, dapt
[2019-10-03] MEDS ORDERED: MAG HYDROX/AL HYDROX/SIMETH 30 ML UNIT-DOSE CUP PO ONE (12:43)
[2019-10-03] MEDS: PANTOPRAZOLE 40 MG TABLET PO SCH (12:52)
--- NOTE | 2019-10-03 14:54 | PN ---
Progress Note (short form) - Note Progress Note: 64 year old female history of cad s/p stent in 2019 on apsirin and statin. Patient has histor of HTN,DM,HLD Migraine and residual weakness from previous stroke on right side. She had slurring of speech, left face droopiness and dsysbalance. patient was brought fo suspected stroke. Initial ct head was negative and later mri ofbrain was showed left midlbrain and layo acute ischemic stroke. patient is stable, no new symptoms. She was on aspirin and plavix at home, and continue for now. Carotid ultrasound and echo is urnemarkable NEUROLOGICAL EXAMINATION Alert oriented x 3, speech is slurred vss eomi, pupils reactive no face asymmetry right sided mild weakness mild right facial umn type weakness notifeied ct head unremarkable mri of brain showed there is left pontine and midbrain stroke Assessment Brain stem infarct, 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 she was on aspirin , plavix and statin Plan: continue aspirin and statin - carotid ultrasound finding unremarkable -speech therapy, dvt prophylaxis, pt - continue statin and antiplatelet - life style modifications were discussed again - cardiac monitoring , need loop recording Thanking you so much Arnulfo Wiley MD
--- NOTE | 2019-10-03 17:20 | PN ---
Physical Exam: SUBJECTIVE: Patient seen and examined at the bedside. denies any malaise. OBJECTIVE: Patient seen and examined at bedside. She endorses having a rash on her abdomen for about 3 weeks. She believes it is a reaction to Lovenox when she was at rehab. She endorses feeling tired. She denies nausea vomiting fever chills chest pain or SOB. Initial ct head was negative but brain MRI showed left midlbrain and layo acute ischemic stroke. Patient continue to have dyssbalance and slurring of speech. she passed swallowing test. She states she complies with home meds. past medical history: h/o CAD S/P cath (stent) 2019, HTN, T2DM, HLD, migraine headaches, CVA w/ R sided residual weakness/numbness. patient pending d/c to rehab/[facility] Vital Signs Period Temp Pulse Resp BP Sys/Puckett Pulse Ox Last 24 Hr 97.4 F-98.4 F 60-85 15-18 115-146/58-77 96-100 GENERAL: The patient is awake, alert, and fully oriented, in no acute distress. speech cleared but mildly slow HEAD: Normal with no signs of trauma. EYES: PERRL, extraocular movements intact, sclera anicteric, conjunctiva clear. No ptosis. ENT: Ears normal, nares patent, oropharynx clear without exudates, moist mucous membranes. NECK: Trachea midline, full range of motion, supple. LUNGS: Breath sounds equal, clear to auscultation bilaterally HEART: Regular rate and rhythm ABDOMEN: multiple blotchy areas s/p injections from Lovenox? EXTREMITIES: no edema. NEUROLOGICAL: Normal speech, gait not observed. PSYCH: Normal mood, normal affect. Laboratory Results - last 24 hours 10/03/19 10/03/19 08:06 08:06 WBC 9.6 RBC 5.83 H Hgb 16.4 H Hct 50.1 H MCV 85.9 MCH 28.1 MCHC 32.8 RDW 13.5 Plt Count 251 MPV 10.0 Absolute Neuts (auto) 6.0 Neutrophils % 62.8 Lymphocytes % 26.0 D Monocytes % 7.6 Eosinophils % 2.9 Basophils % 0.7 Nucleated RBC % 0 Sodium 137 Potassium 4.4 Chloride 106 Carbon Dioxide 24 Anion Gap 7 L BUN 13.5 Creatinine 0.7 Est GFR (CKD-EPI)AfAm 106.87 Est GFR (CKD-EPI)NonAf 92.21 Random Glucose 166 H Calcium 9.1 Magnesium 1.9 Total Bilirubin 0.7 AST 42 H ALT 60 Alkaline Phosphatase 106 Total Protein 7.5 Albumin 3.7 Active Medications Generic Name Dose Route Start Last Admin Trade Name Freq PRN Reason Stop Dose Admin Aspirin 81 mg 10/01/19 10:00 10/03/19 09:49 Ecotrin - PO 81 mg DAILY JUAN Administration Atorvastatin Calcium 80 mg 10/01/19 22:00 10/02/19 21:30 Lipitor - PO 80 mg HS JUAN Administration Clopidogrel Bisulfate 75 mg 10/01/19 10:00 10/03/19 09:49 Plavix - PO 75 mg DAILY JUAN Administration Diphenhydramine HCl 25 mg 09/30/19 17:43 10/03/19 09:49 Benadryl - PO 25 mg Q12H PRN Administration FOR ITCHING Heparin Sodium (Porcine) 5,000 unit 10/01/19 22:00 10/03/19 14:18 Heparin - SQ 5,000 unit TID JUAN Administration Insulin Aspart 1 vial 10/02/19 22:00 10/03/19 17:02 Novolog Vial Sliding Scale - SQ 2 units ACHS JUAN Administration Protocol Metoprolol Succinate 25 mg 10/01/19 17:15 10/03/19 09:49 Toprol Xl - PO 25 mg DAILY JUAN Administration Pantoprazole Sodium 40 mg 10/03/19 12:45 10/03/19 12:52 Protonix - PO 40 mg DAILY JUAN Administration Triamcinolone Acetonide 1 applic 09/30/19 17:30 10/03/19 09:50 Aristocort 0.1% Ointment - TP 1 applic DAILY JUAN Administration ASSESSMENT/PLAN: Problem List - Problems (1) Stroke Assessment/Plan: Initial ct head was negative but brain MRI showed left midlbrain and layo acute ischemic stroke. Patient continue to have dyssbalance and slurring of speech. she passed swallowing test. She states she complies with home meds. On lipitor 80mg daily on ASA and Plavix daily Neuro following BP stable will need outpatient loop recorder to further evaluate on heparin prophylaxis neuro following Code(s): I63.9 - CEREBRAL INFARCTION, UNSPECIFIED Qualifiers: CVA mechanism: unspecified Qualified Code(s): I63.9 - Cerebral infarction, unspecified (2) Difficulty swallowing Assessment/Plan: passed swallow test Code(s): R13.10 - DYSPHAGIA, UNSPECIFIED Qualifiers: Dysphagia type: unspecified Qualified Code(s): R13.10 - Dysphagia, unspecified (3) Elevated troponin I level Code(s): R74.8 - ABNORMAL LEVELS OF OTHER SERUM ENZYMES (4) Slurred speech Assessment/Plan: patient with history of multple strokes, will seen by speech and swallow may benefit for rehab Code(s): R47.81 - SLURRED SPEECH (5) Type 2 diabetes mellitus Assessment/Plan: monitor hmg a1c outpatient on novolog Code(s): E11.9 - TYPE 2 DIABETES MELLITUS WITHOUT COMPLICATIONS Qualifiers: Diabetes mellitus shelter insulin use: without senior center director use Diabetes mellitus complication status: with circulatory complication Diabetes mellitus complication detail: with other circulatory complications Qualified Code(s): E11.59 - Type 2 diabetes mellitus with other circulatory complications Visit type - Emergency Visit Emergency Visit: Yes ED Registration Date: 09/30/19 Care time: The patient presented to the Emergency Department on the above date and was hospitalized for further evaluation of their emergent condition. - New Patient This patient is new to me today: No - Critical Care Critical Care patient: No - Discharge Referral Referred to [facility] No
[2019-10-03] MEDS: ATORVASTATIN CA 80 MG TABLET (FP) PO SCH (21:15)
[2019-10-03] MEDS ORDERED: ONDANSETRON 4 MG/2 ML VIAL IVPUSH ONE (22:30)
--- NOTE | 2019-10-04 03:47 | PN ---
Progress Note (short form) - Note Progress Note: Episodic Note: 10/04/2019@ 3:45am Called by nurse patient had 2 separate episodes of vomiting overnight with a small amount of clear liquid. She had no chest pain or headache but she reported abdominal pain and nausea with vomiting X 2. Chart/EKG reviewed. She was admitted with acute CVA. Qtc interval <500 m/s. IV Zofran given with relief but vomiting reoccurred a few hours latar and another dose of IV Zofran given. Continue to monitor closely. Abdomen US ordered and GI consulted- Dr. Dominique. Will keep NPO and will start IVF (gentle hydration). Pending BMP in am to check electrolytes. UA ordered. Visit type - Emergency Visit Emergency Visit: No - New Patient This patient is new to me today: Yes Date on this admission: 10/04/19 - Critical Care Critical Care patient: No
[2019-10-04] MEDS ORDERED: ONDANSETRON 4 MG/2 ML VIAL IVPUSH ONE ×2 (03:57→08:39)
[2019-10-04] MEDS ORDERED: SODIUM CHLORIDE 1,000 ML IV SCH (04:15)
[2019-10-04] MEDS: HEPARIN NA (PORCINE) 5,000 UNITS/ML 1ML VIAL SQ SCH ×3 (06:18→21:23)
[2019-10-04 06:40] LABS: BASO % 0.6 % (0-2.0); EOS % 0.7 % (0-4.5); HEMATOCRIT 43.6 % (32.4-45.2); HEMOGLOBIN 14.4 GM/dL (10.7-15.3); LYMPH % 17.6 % (8-40); MCH 27.8 pg (25.7-33.7); MCHC 33.1 g/dl (32.0-36.0); MEAN PLT VOLUME 9.4 fl (7.5-11.1); NEUT % 77.1 % (42.8-82.8); PLATELET COUNT 255 K/MM3 (134-434); RBC 5.19 M/mm3 (3.60-5.2); RDW 13.2 % (11.6-15.6)
[2019-10-04] MEDS: INSULIN SLIDING SCALE (NOVOLOG) 1 VIAL SQ SCH ×4 (06:42→21:22)
[2019-10-04 07:05] LABS: ALBUMIN 3.6 g/dl (3.4-5.0); BILIRUBIN,TOTAL 0.4 mg/dL (0.2-1); BLOOD UREA NITROGEN 10.4 mg/dL (7-18); CALCIUM 9.1 mg/dL (8.5-10.1); CREATININE 0.6 mg/dL (0.55-1.3); POTASSIUM 4.2 mmol/L (3.5-5.1); TOT PROT 7.2 g/dl (6.4-8.2)
[2019-10-04] MEDS ORDERED: BISACODYL 10 MG SUPP.RECT PR ONE (10:41)
[2019-10-04] MEDS ORDERED: PANTOPRAZOLE SODIUM 40 MG in SODIUM CHLORIDE 100 ML IVPB SCH (10:45)
[2019-10-04] MEDS: PANTOPRAZOLE SODIUM 40 MG VIAL IVPUSH SCH (10:57)
[2019-10-04] MEDS: TRIAMCINOLONE ACET 0.1% OINT 15 GM TUBE TP SCH (10:58)
[2019-10-04] MEDS: CLOPIDOGREL BISULFATE 75 MG TABLET (FP) PO SCH (10:58)
[2019-10-04] MEDS: PANTOPRAZOLE 40 MG TABLET PO SCH (10:58)
[2019-10-04] MEDS: ASPIRIN COATED 81 MG TABLET.EC PO SCH (10:58)
[2019-10-04] MEDS: metoPROLOL SUCCINATE 25 MG TAB.SR.24H (FP) PO SCH (10:58)
--- NOTE | 2019-10-04 11:41 | PN ---
Progress Note (short form) - Note Progress Note: s: no cp sob palps dizzy. complains of nausea, had vomiting episode overnight Current Medications Generic Name Dose Route Start Last Admin Trade Name Ben PRN Reason Stop Dose Admin Aspirin 81 mg 10/01/19 10:00 10/04/19 10:58 Ecotrin - PO 81 mg DAILY JUAN Administration Atorvastatin Calcium 80 mg 10/01/19 22:00 10/03/19 21:15 Lipitor - PO 80 mg HS JUAN Administration Clopidogrel Bisulfate 75 mg 10/01/19 10:00 10/04/19 10:58 Plavix - PO 75 mg DAILY JUAN Administration Diphenhydramine HCl 25 mg 09/30/19 17:43 10/03/19 09:49 Benadryl - PO 25 mg Q12H PRN Administration FOR ITCHING Heparin Sodium (Porcine) 5,000 unit 10/01/19 22:00 10/04/19 06:18 Heparin - SQ 5,000 unit TID JUAN Administration Sodium Chloride 1,000 mls @ 50 mls/hr 10/04/19 04:15 10/04/19 04:19 Normal Saline - IV 10/05/19 04:02 50 mls/hr ASDIR JUAN Administration Insulin Aspart 1 vial 10/02/19 22:00 10/04/19 11:14 Novolog Vial Sliding Scale - SQ 2 units ACHS JUAN Administration Protocol Metoprolol Succinate 25 mg 10/01/19 17:15 10/04/19 10:58 Toprol Xl - PO 25 mg DAILY JUAN Administration Pantoprazole Sodium 40 mg 10/04/19 11:00 10/04/19 10:57 Protonix Iv IVPUSH 40 mg DAILY JUAN Administration Triamcinolone Acetonide 1 applic 09/30/19 17:30 10/04/19 10:58 Aristocort 0.1% Ointment - TP 1 applic DAILY JUAN Administration Vital Signs Period Temp Pulse Resp BP Sys/Puckett Pulse Ox Last 24 Hr 97.4 F-98.5 F 64-74 15-19 136-153/69-79 97-97 nad no jvd rrr s1s2 no mrg cta bl nl eff aao3 no le e/c/c abd nt nd pos bs no jaundice diaphoresis ecg: sr nl intervals no ischemic changes tele: sr, PVCs echo 08/2019: mild lvh, nl lvef, nl rv, no sig valve path a/p: 64 f hx htn, hld, dm, cad s/p pci 09/2018 after +mibi, cvas (last was 08/2019) here with slurred speech, facial droop. acute cva: -pt here with cva, also here recently for same -echo and carotids unremarkable -tele has been benign on both admits. will need outpt extended monitoring with event monitor or loop recorder to detect occult afib. cont tele while here. -cont current cardiac meds. neuro following htn: -cont home med hld: -cont statin cad, pci: -no signs acs -borderline trop elevation with nl ckmb, similar to prior baselines, not c/w acs -cont statin, bb, dapt
--- NOTE | 2019-10-04 11:49 | CON.GI ---
Consult Consult Specialty:: gatroenterology - History of Present Illness History of Present Illness: The patient is a 64 yo female who presented to the ER with complaints of tingling to her lips and left sided weakness. She has a history of a recent stroke and went to rehab. She was at home when her weakness began. Her history is taken with the use of the [employer] phone diplomatic interpreter/translator number [id number]. The pat isaac had vomiting yesterday which has resolved and she is currently on clears. No nausea or emesis today and is passing some flatus. Her last BM was yesterday. The patient has a known history of gallstones, which she states do not bother her. No known liver disease/hepatitis. 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 No: Gastritis, GERD, GI Bleed Hepatobiliary: Yes: Cholelithiasis. No: Hepatitis A, Hepatitis B, Hepatitis C Renal/: No: Renal Failure ...: No Heme/Onc: No: Anemia Endocrine: Yes: Diabetes Mellitus - Past Surgical History Past Surgical History: Yes: Appendectomy Additional Surgical History: c section - Alcohol/Substance Use Hx Alcohol Use: No - Smoking History Smoking history: Never smoked Have you smoked in the past 12 months: No <Graciela Sanders - Last Filed: 10/04/19 12:27> Home Medications <Graciela Sanders - Last Filed: 10/04/19 12:27> <Marlen Dominique - Last Filed: 10/04/19 17:29> - Allergies Allergies/Adverse Reactions: Allergies Allergy/AdvReac Type Severity Reaction Status Date / Time enoxaparin [From Lovenox] Allergy Intermediate Rash Verified 09/30/19 18:47 - Home Medications Home Medications: Ambulatory Orders Metoprolol Succinate [Toprol XL -] 25 mg PO DAILY tab.sr.24h 09/23/18 Lancets [Lancets Thin] 1 each MC DAILY #100 each 09/04/19 Miscellaneous Medical Supply [Glucometer Device] 1 each SQ ASDIR #1 kit 09/04/19 Aspirin [ASA -] 81 mg PO DAILY 09/30/19 Atorvastatin Ca [Lipitor] 40 mg PO HS 09/30/19 Clopidogrel Bisulfate [Plavix] 75 mg PO DAILY 09/30/19 Dapagliflozin Propanediol [Farxiga] 10 mg PO DAILY 09/30/19 Enalapril Maleate [Vasotec -] 20 mg PO DAILY 09/30/19 Meclizine HCl 12.5 mg PO DAILY 09/30/19 Metformin HCl [Glucophage] 500 mg PO HS 09/30/19 Family Medical History Family History: Denies (denies history of colon cancer in her family) <Graciela Sanders - Last Filed: 10/04/19 12:27> Review of Systems - Review of Systems Gastrointestinal: reports: Constipation (takes medication(can't recall the name) as needed for constipation). denies: Diarrhea Neurological: reports: Dizziness, Headache. denies: Numbness <Graciela Sanders - Last Filed: 10/04/19 12:27> Physical Exam-GI Vital Signs: Vital Signs Temperature 97.6 F 10/04/19 10:00 Pulse Rate 70 10/04/19 10:00 Respiratory Rate 18 10/04/19 10:00 Blood Pressure 146/79 10/04/19 10:00 O2 Sat by Pulse Oximetry (%) 97 10/04/19 05:57 Constitutional: Yes: Well Nourished, Calm HENT: Yes: Atraumatic, Normocephalic Neck: Yes: Supple, Trachea Midline Cardiovascular: Yes: WNL, Regular Rate and Rhythm Respiratory: Yes: Regular, CTA Bilaterally ...Palpate: Yes: Soft, Tenderness, Epigastium. No: Guarding, Mass, Tenderness ...Rectal Exam: Yes: Sphincter Tone Normal, Other (no gross blood with exam, hard stool in vault). No: Mass Integumentary: Yes: Onychomycosis Wound/Incision: Yes: Clean/Dry Neurological: Yes: WNL, Alert, Oriented ...Motor Strength: LUE, LLE, RUE, RLE Psychiatric: Yes: WNL, Alert, Oriented Labs: CBC, BMP 10/04/19 05:58 10/04/19 05:58 INR, PTT INR 1.02 (0.83-1.09) 09/30/19 11:30 Hepatic Panel Total Bilirubin 0.4 mg/dL (0.2-1) 10/04/19 05:58 AST 30 U/L (15-37) 10/04/19 05:58 ALT 54 U/L (13-61) 10/04/19 05:58 Alkaline Phosphatase 105 U/L (45-117) 10/04/19 05:58 Albumin 3.6 g/dl (3.4-5.0) 10/04/19 05:58 <Graciela Sanders - Last Filed: 10/04/19 12:27> Vital Signs: Vital Signs Temperature 98.3 F 10/04/19 13:24 Pulse Rate 60 10/04/19 13:24 Respiratory Rate 14 10/04/19 13:24 Blood Pressure 156/74 10/04/19 13:24 O2 Sat by Pulse Oximetry (%) 100 10/04/19 09:00 Labs: CBC, BMP 10/04/19 05:58 10/04/19 05:58 INR, PTT INR 1.02 (0.83-1.09) 09/30/19 11:30 <Marlen Dominique - Last Filed: 10/04/19 17:29> Imaging - Results X-ray: Other (no evidnece of obstruction) Ultrasound: Other (gallstone, fatty liver infiltration) <Graciela Sanders - Last Filed: 10/04/19 12:27> Problem List - Problems (1) Abdominal pain Assessment/Plan: pt with mild upper abd pain with examination, no history of gastritis. Recommend to continue IV protonix ABD xray without evidence of obstruction and pt now tolerating clears. Advance diet as tolerated. May use stools softners as needed for constipation Problems reviewed: Yes Code(s): R10.9 - UNSPECIFIED ABDOMINAL PAIN Qualifiers: Abdominal location: epigastric Qualified Code(s): R10.13 - Epigastric pain <Graciela Sanders - Last Filed: 10/04/19 12:27> Assessment/Plan pt was seen and examined agree with assessment and plan as outlined above. vss nad bs, epigastric tenderness no rebound or guarding REC: - ct scan abd pelvis - ordered by me - ppi - antiemetic - clear liquid diet - further rec pending imaging results. <Marlen Dominique - Last Filed: 10/04/19 17:29>
--- NOTE | 2019-10-04 12:54 | PN ---
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 CT head unchanged GI noted Neurology consult pending. Pt placed on clear liquid diet. Reviewed compensatory strategies for safe PO tolerance. Monitor for cough, congestion, speech producyion, swallowing, visual changes
[2019-10-04] MEDS ORDERED: LORazepam 2 MG/ML SDV VIAL IVPUSH PRN (12:55)
--- NOTE | 2019-10-04 16:22 | PN ---
Physical Exam: SUBJECTIVE: Patient seen and examined. having nausea today, vomiting numerous times today. tells me she feels like the medications are making her nauseous. denies abodominal pain or chest pain. OBJECTIVE: Patient seen and examined at bedside. She endorses having a rash on her abdomen for about 3 weeks. She believes it is a reaction to Lovenox when she was at rehab. She endorses feeling tired. She denies nausea vomiting fever chills chest pain or SOB. Initial ct head was negative but brain MRI showed left midl brain and layo acute ischemic stroke. Patient continue to have dyssbalance and slurring of speech. she passed swallowing test. She states she complies with home meds. past medical history: h/o CAD S/P cath (stent) 2019, HTN, T2DM, HLD, migraine headaches, CVA w/ R sided residual weakness/numbness. patient pending d/c to rehab/[facility]. multiple episodes of vomiting today, no further zofran as her qtc 502 - give ativan prn for nausea had two soft brown BMs today will d/c lipitor as it may be causing n/v, replace with crestor (discussed with neuro) on clears, abd xray negative for acute pathology, abd us negative for acute path seen by GI team Vital Signs Period Temp Pulse Resp BP Sys/Puckett Pulse Ox Last 24 Hr 97.6 F-98.5 F 60-71 14-19 136-156/69-79 97-100 GENERAL: The patient is awake, alert, and fully oriented, in no acute distress. speech cleared but mildly slow HEAD: Normal with no signs of trauma. EYES: PERRL, extraocular movements intact, sclera anicteric, conjunctiva clear. No ptosis. ENT: Ears normal, nares patent, oropharynx clear without exudates, moist mucous membranes. NECK: Trachea midline, full range of motion, supple. LUNGS: Breath sounds equal, clear to auscultation bilaterally HEART: Regular rate and rhythm ABDOMEN: multiple blotchy areas s/p injections from Lovenox, improving - abd soft, non distended + bowel sounds, no bloating EXTREMITIES: no edema. NEUROLOGICAL: Normal speech, gait not observed. PSYCH: Normal mood, normal affec 10/03/19 10/04/19 10/04/19 21:18 05:58 05:58 WBC 8.0 RBC 5.19 Hgb 14.4 Hct 43.6 MCV 84.0 MCH 27.8 MCHC 33.1 RDW 13.2 Plt Count 255 MPV 9.4 Absolute Neuts (auto) 6.2 Neutrophils % 77.1 D Lymphocytes % 17.6 D Monocytes % 4.0 Eosinophils % 0.7 Basophils % 0.6 Nucleated RBC % 0 Sodium 140 Potassium 4.2 Chloride 108 H Carbon Dioxide 22 Anion Gap 9 BUN 10.4 Creatinine 0.6 Est GFR (CKD-EPI)AfAm 112.43 Est GFR (CKD-EPI)NonAf 97.01 POC Glucometer 209 Random Glucose 232 H Calcium 9.1 Magnesium 2.0 Total Bilirubin 0.4 AST 30 ALT 54 Alkaline Phosphatase 105 Troponin I 0.07 H Total Protein 7.2 Albumin 3.6 10/04/19 10/04/19 06:20 11:06 WBC RBC Hgb Hct MCV MCH MCHC RDW Plt Count MPV Absolute Neuts (auto) Neutrophils % Lymphocytes % Monocytes % Eosinophils % Basophils % Nucleated RBC % Sodium Potassium Chloride Carbon Dioxide Anion Gap BUN Creatinine Est GFR (CKD-EPI)AfAm Est GFR (CKD-EPI)NonAf POC Glucometer 217 207 Random Glucose Calcium Magnesium Total Bilirubin AST ALT Alkaline Phosphatase Troponin I Total Protein Albumin Active Medications Generic Name Dose Route Start Last Admin Trade Name Parvizq PRN Reason Stop Dose Admin Aspirin 81 mg 10/01/19 10:00 10/04/19 10:58 Ecotrin - PO 81 mg DAILY JUAN Administration Clopidogrel Bisulfate 75 mg 10/01/19 10:00 10/04/19 10:58 Plavix - PO 75 mg DAILY JUAN Administration Diphenhydramine HCl 25 mg 09/30/19 17:43 10/03/19 09:49 Benadryl - PO 25 mg Q12H PRN Administration FOR ITCHING Heparin Sodium (Porcine) 5,000 unit 10/01/19 22:00 10/04/19 13:47 Heparin - SQ 5,000 unit TID JUAN Administration Sodium Chloride 1,000 mls @ 50 mls/hr 10/04/19 04:15 10/04/19 04:19 Normal Saline - IV 10/05/19 04:02 50 mls/hr ASDIR JUAN Administration Insulin Aspart 1 vial 10/02/19 22:00 10/04/19 11:14 Novolog Vial Sliding Scale - SQ 2 units ACHS JUAN Administration Protocol Lorazepam 0.5 mg 10/04/19 12:55 Ativan Injection - IVPUSH BID PRN NAUSEA Metoprolol Succinate 25 mg 10/01/19 17:15 10/04/19 10:58 Toprol Xl - PO 25 mg DAILY JUAN Administration Pantoprazole Sodium 40 mg 10/04/19 11:00 10/04/19 10:57 Protonix Iv IVPUSH 40 mg DAILY JUAN Administration Rosuvastatin Calcium 40 mg 10/04/19 22:00 Crestor - PO HS JUAN Triamcinolone Acetonide 1 applic 09/30/19 17:30 10/04/19 10:58 Aristocort 0.1% Ointment - TP 1 applic DAILY JUAN Administration ASSESSMENT/PLAN: Problem List - Problems (1) Stroke Assessment/Plan: Initial ct head was negative but brain MRI showed left midlbrain and layo acute ischemic stroke. Patient continue to have dyssbalance and slurring of speech. she passed swallowing test. She states she complies with home meds. On lipitor 80mg daily on ASA and Plavix daily Neuro following BP stable will need outpatient loop recorder to further evaluate on heparin prophylaxis neuro following Code(s): I63.9 - CEREBRAL INFARCTION, UNSPECIFIED Qualifiers: CVA mechanism: unspecified Qualified Code(s): I63.9 - Cerebral infarction, unspecified (2) Difficulty swallowing Assessment/Plan: passed swallow test Code(s): R13.10 - DYSPHAGIA, UNSPECIFIED Qualifiers: Dysphagia type: unspecified Qualified Code(s): R13.10 - Dysphagia, unspecified (3) Elevated troponin I level Assessment/Plan: per cardiolog: borderline trop elevation with nl ckmb, similar to prior baselines, not c/w acs Code(s): R74.8 - ABNORMAL LEVELS OF OTHER SERUM ENZYMES (4) Slurred speech Assessment/Plan: patient with history of multple strokes, will seen by speech and swallow may benefit for rehab Code(s): R47.81 - SLURRED SPEECH (5) Type 2 diabetes mellitus Assessment/Plan: monitor hmg a1c outpatient on novolog Code(s): E11.9 - TYPE 2 DIABETES MELLITUS WITHOUT COMPLICATIONS Qualifiers: Diabetes mellitus intermediate insulin use: without intermediate use Diabetes mellitus complication status: with circulatory complication Diabetes mellitus complication detail: with other circulatory complications Qualified Code(s): E11.59 - Type 2 diabetes mellitus with other circulatory complications (6) Nausea & vomiting Assessment/Plan: nausea/vomiting without diarrhea abdominal xray negative, abd u/s negative seen by GI team on clears, advance diet as tolerated stop lipitor as it may be causing n/v side effect, give crestor monitor intake output Code(s): R11.2 - NAUSEA WITH VOMITING, UNSPECIFIED (7) DVT prophylaxis Code(s): Z29.9 - ENCOUNTER FOR PROPHYLACTIC MEASURES, UNSPECIFIED Visit type - Emergency Visit Emergency Visit: Yes ED Registration Date: 09/30/19 Care time: The patient presented to the Emergency Department on the above date and was hospitalized for further evaluation of their emergent condition. - New Patient This patient is new to me today: No - Critical Care Critical Care patient: No - Discharge Referral Referred to [facility] Med [facility] No
[2019-10-04] MEDS: ROSUVASTATIN CA 20 MG TABLET (FP) PO SCH (21:23)
--- NOTE | 2019-10-04 22:49 | PN ---
Progress Note (short form) - Note Progress Note: 64 year old female history of cad s/p stent in 2019 on apsirin and statin. Patient has histor of HTN,DM,HLD Migraine and residual weakness from previous stroke on right side. She had slurring of speech, left face droopiness and dsysbalance. patient was brought fo suspected stroke. Initial ct head was negative and later mri ofbrain was showed left midlbrain and layo acute ischemic stroke. patient is stable, no new symptoms. She was on aspirin and plavix at home, and continue for now. Carotid ultrasound and echo is urnemarkable Patient is having recurrent vomiting ? etiology unclear , primary team suspect lipitor induced NEUROLOGICAL EXAMINATION Alert oriented x 3, speech is slurred vss eomi, pupils reactive no face asymmetry right sided mild weakness mild right facial umn type weakness notifeied ct head unremarkable mri of brain showed there is left pontine and midbrain stroke repeat ct head on october 03 was unremarkable. 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 she was on aspirin , plavix and statin Plan: continue aspirin and statin - carotid ultrasound finding unremarkable -speech therapy, dvt prophylaxis, pt - hold lipitor as spoken to primary , as suspect vomiting could be secondary to lipitor - life style modifications were discussed again - cardiac monitoring , need loop recording Thanking you so much Arnulfo Wiley MD
[2019-10-05] MEDS: HEPARIN NA (PORCINE) 5,000 UNITS/ML 1ML VIAL SQ SCH ×3 (05:40→21:35)
[2019-10-05] MEDS: INSULIN SLIDING SCALE (NOVOLOG) 1 VIAL SQ SCH ×4 (06:08→21:35)
[2019-10-05 08:29] LABS: BASO % 0.4 % (0-2.0); EOS % 0.2 % (0-4.5); HEMATOCRIT 42.1 % (32.4-45.2); LYMPH % 23.4 % (8-40); MCH 28.1 pg (25.7-33.7); MCHC 33.2 g/dl (32.0-36.0); MEAN CELL VOLUME 84.7 fl (80-96); MEAN PLT VOLUME 10.3 fl (7.5-11.1); MONO % 8.2 % (3.8-10.2); NEUT % 67.8 % (42.8-82.8); PLATELET COUNT 233 K/MM3 (134-434); RBC 4.97 M/mm3 (3.60-5.2); WHITE BLOOD COUNT 12.5 K/mm3 (4.0-10.0)
[2019-10-05 08:49] LABS: ALBUMIN 3.5 g/dl (3.4-5.0); BILIRUBIN,TOTAL 0.5 mg/dL (0.2-1); CALCIUM 8.8 mg/dL (8.5-10.1); CREATININE 0.6 mg/dL (0.55-1.3); MAGNESIUM 1.8 mg/dL (1.8-2.4); POTASSIUM 3.5 mmol/L (3.5-5.1); TOT PROT 7.1 g/dl (6.4-8.2)
[2019-10-05] MEDS: PANTOPRAZOLE SODIUM 40 MG VIAL IVPUSH SCH (09:33)
[2019-10-05] MEDS: ASPIRIN COATED 81 MG TABLET.EC PO SCH (09:33)
[2019-10-05] MEDS: metoPROLOL SUCCINATE 25 MG TAB.SR.24H (FP) PO SCH (09:33)
[2019-10-05] MEDS: CLOPIDOGREL BISULFATE 75 MG TABLET (FP) PO SCH (09:33)
[2019-10-05] MEDS: TRIAMCINOLONE ACET 0.1% OINT 15 GM TUBE TP SCH (09:36)
--- NOTE | 2019-10-05 10:42 | PN ---
Progress Note (short form) - Note Progress Note: s: no cp sob palps dizzy Current Medications Generic Name Dose Route Start Last Admin Trade Name Freq PRN Reason Stop Dose Admin Aspirin 81 mg 10/01/19 10:00 10/05/19 09:33 Ecotrin - PO 81 mg DAILY JUAN Administration Clopidogrel Bisulfate 75 mg 10/01/19 10:00 10/05/19 09:33 Plavix - PO 75 mg DAILY JUAN Administration Diphenhydramine HCl 25 mg 09/30/19 17:43 10/03/19 09:49 Benadryl - PO 25 mg Q12H PRN Administration FOR ITCHING Heparin Sodium (Porcine) 5,000 unit 10/01/19 22:00 10/05/19 05:40 Heparin - SQ 5,000 unit TID JUAN Administration Insulin Aspart 1 vial 10/02/19 22:00 10/05/19 06:08 Novolog Vial Sliding Scale - SQ Not Given ACHS [facility] Protocol Lorazepam 0.5 mg 10/04/19 12:55 Ativan Injection - IVPUSH BID PRN NAUSEA Metoprolol Succinate 25 mg 10/01/19 17:15 10/05/19 09:33 Toprol Xl - PO 25 mg DAILY JUAN Administration Pantoprazole Sodium 40 mg 10/04/19 11:00 10/05/19 09:33 Protonix Iv IVPUSH 40 mg DAILY JUAN Administration Rosuvastatin Calcium 40 mg 10/04/19 22:00 10/04/19 21:23 Crestor - PO 40 mg HS JUAN Administration Triamcinolone Acetonide 1 applic 09/30/19 17:30 10/05/19 09:36 Aristocort 0.1% Ointment - TP 1 applic DAILY JUAN Administration Laboratory Last Values WBC 12.5 K/mm3 (4.0-10.0) H 10/05/19 06:55 RBC 4.97 M/mm3 (3.60-5.2) 10/05/19 06:55 Hgb 14.0 GM/dL (10.7-15.3) 10/05/19 06:55 Hct 42.1 % (32.4-45.2) 10/05/19 06:55 MCV 84.7 fl (80-96) 10/05/19 06:55 MCH 28.1 pg (25.7-33.7) 10/05/19 06:55 MCHC 33.2 g/dl (32.0-36.0) 10/05/19 06:55 RDW 13.0 % (11.6-15.6) 10/05/19 06:55 Plt Count 233 K/MM3 (134-434) 10/05/19 06:55 MPV 10.3 fl (7.5-11.1) 10/05/19 06:55 Absolute Neuts (auto) 8.5 K/mm3 (1.5-8.0) H 10/05/19 06:55 Neutrophils % 67.8 % (42.8-82.8) 10/05/19 06:55 Lymphocytes % 23.4 % (8-40) D 10/05/19 06:55 Monocytes % 8.2 % (3.8-10.2) D 10/05/19 06:55 Eosinophils % 0.2 % (0-4.5) 10/05/19 06:55 Basophils % 0.4 % (0-2.0) 10/05/19 06:55 Nucleated RBC % 0 % (0-0) 10/05/19 06:55 PT with INR 12.00 SEC (9.7-13.0) 09/30/19 11:30 INR 1.02 (0.83-1.09) 09/30/19 11:30 PTT (Actin FS) 32.1 SECONDS (25.2-36.5) 09/30/19 11:30 Sodium 138 mmol/L (136-145) 10/05/19 06:55 Potassium 3.5 mmol/L (3.5-5.1) 10/05/19 06:55 Chloride 105 mmol/L (98-107) 10/05/19 06:55 Carbon Dioxide 24 mmol/L (21-32) 10/05/19 06:55 Anion Gap 9 MMOL/L (8-16) 10/05/19 06:55 BUN 7.0 mg/dL (7-18) 10/05/19 06:55 Creatinine 0.6 mg/dL (0.55-1.3) 10/05/19 06:55 Est GFR (CKD-EPI)AfAm 112.43 10/05/19 06:55 Est GFR (CKD-EPI)NonAf 97.01 10/05/19 06:55 POC Glucometer 181 UNITS (80-120) 10/04/19 21:21 Random Glucose 177 mg/dL (74-106) H 10/05/19 06:55 Hemoglobin A1c % 9.2 % (4.2-6.3) H 09/30/19 21:00 Calcium 8.8 mg/dL (8.5-10.1) 10/05/19 06:55 Magnesium 1.8 mg/dL (1.8-2.4) 10/05/19 06:55 Total Bilirubin 0.5 mg/dL (0.2-1) 10/05/19 06:55 AST 23 U/L (15-37) 10/05/19 06:55 ALT 44 U/L (13-61) 10/05/19 06:55 Alkaline Phosphatase 93 U/L (45-117) 10/05/19 06:55 Creatine Kinase 374 U/L (26-192) H 09/30/19 11:30 Creatine Kinase Index No Result Required. 09/30/19 11:30 CK-MB (CK-2) < 1.0 ng/mL (0.5-3.6) 09/30/19 11:30 Troponin I 0.07 ng/ml (0.00-0.05) H 10/04/19 05:58 Total Protein 7.1 g/dl (6.4-8.2) 10/05/19 06:55 Albumin 3.5 g/dl (3.4-5.0) 10/05/19 06:55 Triglycerides 178 mg/dL (0-150) H 09/30/19 21:00 Cholesterol 183 mg/dL (50-200) 09/30/19 21:00 Total LDL Cholesterol 110 mg/dL (5-100) H 09/30/19 21:00 HDL Cholesterol 41 mg/dL (40-60) 09/30/19 21:00 TSH 0.43 uIU/ml (0.358-3.74) 09/30/19 21:00 Urine Color Yellow 09/30/19 21:20 Urine Appearance Clear 09/30/19 21:20 Urine pH 7.5 (5.0-8.0) 09/30/19 21:20 Ur Specific Combes 1.016 (1.010-1.035) 09/30/19 21:20 Urine Protein Negative (NEGATIVE) 09/30/19 21:20 Urine Glucose (UA) 3+ (NEGATIVE) H 09/30/19 21:20 Urine Ketones Negative (NEGATIVE) 09/30/19 21:20 Urine Blood Negative (NEGATIVE) 09/30/19 21:20 Urine Nitrite Negative (NEGATIVE) 09/30/19 21:20 Urine Bilirubin Negative (NEGATIVE) 09/30/19 21:20 Urine Urobilinogen 1.0 mg/dL (0.2-1.0) 09/30/19 21:20 Ur Leukocyte Esterase Negative (NEGATIVE) 09/30/19 21:20 COVID-19 (LOCO) Not detected (Not Detected) 09/30/19 14:20 Blood Type O POSITIVE 09/30/19 11:30 Antibody Screen Negative 09/30/19 11:30 Vital Signs Period Temp Pulse Resp BP Sys/Puckett Pulse Ox Last 24 Hr 97.7 F-98.4 F 60-72 12-18 137-156/67-90 98-98 nad no jvd rrr s1s2 no mrg cta bl nl eff aao3 no le e/c/c abd nt nd pos bs no jaundice diaphoresis ecg: sr nl intervals no ischemic changes tele: sr echo 08/2019: mild lvh, nl lvef, nl rv, no sig valve path a/p: 64 f hx htn, hld, dm, cad s/p pci 09/2018 after +mibi, cvas (last was 08/2019) here with slurred speech, facial droop. acute cva: -pt here with cva, also here recently for same -echo and carotids unremarkable -tele has been benign on both admits. will need outpt extended monitoring with event monitor or loop recorder to detect occult afib. cont tele while here. -cont current cardiac meds. neuro following. htn: -cont home med hld: -cont statin cad, pci: -no signs acs -borderline trop elevation with nl ckmb, similar to prior baselines, not c/w acs -cont statin, bb, dapt
--- NOTE | 2019-10-05 11:12 | PN ---
Progress Note, [employer] - Note Progress Note: 10/03, pt started on clear liquid diet, vomited after drinking tea and jello du ring lunch. Seen by neurology. Pending results of abdominal CT Selected Entries 10/04/19 10/04/19 10/05/19 13:24 18:00 01:30 Breakfast Diet Tolerated Poor Poor Lunch 25% Supper 25% Temperature 98.2 F Pulse Rate 71 Blood Pressure 146/67 10/05/19 10/05/19 10/05/19 05:00 09:54 10:47 Breakfast 25% Diet Tolerated Poor Lunch Supper Temperature 97.7 F 98.4 F Pulse Rate 72 66 Blood Pressure 152/90 151/70 Laboratory Tests 10/03/19 10/04/19 10/05/19 08:06 05:58 06:55 WBC 9.6 8.0 12.5 H Speech more precise than yesterday. On clear liquid -Tolerating clear liquid. Careful use of compensatory strategies for safe PO tolerance. Monitor for cough, congestion, speech producyion, swallowing, visual changes
--- NOTE | 2019-10-05 12:11 | PN ---
Physical Exam: SUBJECTIVE: Patient seen and examined. no further vomiting, but reports headache posteriorly 7/10. no dizziness, no visual defect. OBJECTIVE: Patient seen and examined at bedside. She endorses having a rash on her abdomen for about 3 weeks. She believes it is a reaction to Lovenox when she was at rehab. She endorses feeling tired. She denies nausea vomiting fever chills chest pain or SOB. Initial ct head was negative but brain MRI showed left midlbrain and layo acute ischemic stroke. Patient continue to have dyssbalance and slurring of speech. she passed swallowing test. She states she complies with home meds. past medical history: h/o CAD S/P cath (stent) 2019, HTN, T2DM, HLD, migraine headaches, CVA w/ R sided residual weakness/numbness. multiple episodes of vomiting yesterday no further zofran as her qtc was elevated - give ativan prn for nausea had two soft brown BMs yesterdat d/c lipitor as it may be causing n/v, replace with crestor (discussed with neuro) will advance diet once abd/ct resulted (still pending) Vital Signs Period Temp Pulse Resp BP Sys/Puckett Pulse Ox Last 24 Hr 97.7 F-98.4 F 60-72 12-18 137-156/67-90 98-98 GENERAL: The patient is awake, alert, and fully oriented, in no acute distress. speech cleared but mildly slow HEAD: Normal with no signs of trauma. EYES: PERRL, extraocular movements intact, sclera anicteric, conjunctiva clear. No ptosis. ENT: Ears normal, nares patent, oropharynx clear without exudates, moist mucous membranes. NECK: Trachea midline, full range of motion, supple. LUNGS: Breath sounds equal, clear to auscultation bilaterally HEART: Regular rate and rhythm ABDOMEN: multiple blotchy areas s/p injections from Lovenox, improving - abd soft, non distended + bowel sounds, no bloating EXTREMITIES: no edema. NEUROLOGICAL: Normal speech, gait not observed. PSYCH: Normal mood, normal affec Laboratory Results - last 24 hr 10/04/19 10/04/19 10/05/19 17:06 21:21 06:55 WBC 12.5 H RBC 4.97 Hgb 14.0 Hct 42.1 MCV 84.7 MCH 28.1 MCHC 33.2 RDW 13.0 Plt Count 233 MPV 10.3 Absolute Neuts (auto) 8.5 H Neutrophils % 67.8 Lymphocytes % 23.4 D Monocytes % 8.2 D Eosinophils % 0.2 Basophils % 0.4 Nucleated RBC % 0 Sodium Potassium Chloride Carbon Dioxide Anion Gap BUN Creatinine Est GFR (CKD-EPI)AfAm Est GFR (CKD-EPI)NonAf POC Glucometer 184 181 Random Glucose Calcium Magnesium Total Bilirubin AST ALT Alkaline Phosphatase Total Protein Albumin 10/05/19 06:55 WBC RBC Hgb Hct MCV MCH MCHC RDW Plt Count MPV Absolute Neuts (auto) Neutrophils % Lymphocytes % Monocytes % Eosinophils % Basophils % Nucleated RBC % Sodium 138 Potassium 3.5 Chloride 105 Carbon Dioxide 24 Anion Gap 9 BUN 7.0 Creatinine 0.6 Est GFR (CKD-EPI)AfAm 112.43 Est GFR (CKD-EPI)NonAf 97.01 POC Glucometer Random Glucose 177 H Calcium 8.8 Magnesium 1.8 Total Bilirubin 0.5 AST 23 ALT 44 Alkaline Phosphatase 93 Total Protein 7.1 Albumin 3.5 Active Medications Generic Name Dose Route Start Last Admin Trade Name Freq PRN Reason Stop Dose Admin Aspirin 81 mg 10/01/19 10:00 10/05/19 09:33 Ecotrin - PO 81 mg DAILY JUAN Administration Clopidogrel Bisulfate 75 mg 10/01/19 10:00 10/05/19 09:33 Plavix - PO 75 mg DAILY JUAN Administration Diphenhydramine HCl 25 mg 09/30/19 17:43 10/03/19 09:49 Benadryl - PO 25 mg Q12H PRN Administration FOR ITCHING Heparin Sodium (Porcine) 5,000 unit 10/01/19 22:00 10/05/19 05:40 Heparin - SQ 5,000 unit TID JUAN Administration Insulin Aspart 1 vial 10/02/19 22:00 10/05/19 11:10 Novolog Vial Sliding Scale - SQ 6 units ACHS JUAN Administration Protocol Lorazepam 0.5 mg 10/04/19 12:55 Ativan Injection - IVPUSH BID PRN NAUSEA Metoprolol Succinate 25 mg 10/01/19 17:15 10/05/19 09:33 Toprol Xl - PO 25 mg DAILY JUAN Administration Pantoprazole Sodium 40 mg 10/04/19 11:00 10/05/19 09:33 Protonix Iv IVPUSH 40 mg DAILY JUAN Administration Rosuvastatin Calcium 40 mg 10/04/19 22:00 10/04/19 21:23 Crestor - PO 40 mg HS JUAN Administration Triamcinolone Acetonide 1 applic 09/30/19 17:30 10/05/19 09:36 Aristocort 0.1% Ointment - TP 1 applic DAILY JUAN Administration ASSESSMENT/PLAN: Problem List - Problems (1) Stroke Assessment/Plan: Initial ct head was negative but brain MRI showed left midlbrain and layo acute ischemic stroke. Patient continue to have dyssbalance and slurring of speech. she passed swallowing test. She states she complies with home meds. On crestor 20mg daily on ASA and Plavix daily Neuro following BP stable will need outpatient loop recorder to further evaluate on heparin prophylaxis neuro following Code(s): I63.9 - CEREBRAL INFARCTION, UNSPECIFIED Qualifiers: CVA mechanism: unspecified Qualified Code(s): I63.9 - Cerebral infarction, unspecified (2) Difficulty swallowing Assessment/Plan: passed swallow test Code(s): R13.10 - DYSPHAGIA, UNSPECIFIED Qualifiers: Dysphagia type: unspecified Qualified Code(s): R13.10 - Dysphagia, unspecified (3) Elevated troponin I level Assessment/Plan: per cardiolog: borderline trop elevation with nl ckmb, similar to prior baselines, not c/w acs Code(s): R74.8 - ABNORMAL LEVELS OF OTHER SERUM ENZYMES (4) Slurred speech Assessment/Plan: patient with history of multple strokes, will seen by speech and swallow may benefit for rehab but ambulated >150feet Code(s): R47.81 - SLURRED SPEECH (5) Type 2 diabetes mellitus Assessment/Plan: monitor hmg a1c outpatient on novolog Code(s): E11.9 - TYPE 2 DIABETES MELLITUS WITHOUT COMPLICATIONS Qualifiers: Diabetes mellitus [facility] insulin use: without adjunct faculty for medical terminology use Diabetes mellitus complication status: with circulatory complication Diabetes mellitus complication detail: with other circulatory complications Qualified Code(s): E11.59 - Type 2 diabetes mellitus with other circulatory complications (6) Nausea & vomiting Assessment/Plan: nausea/vomiting without diarrhea abdominal xray negative, abd u/s negative, abd ct pending seen by GI team on clears, advance diet as tolerated stop lipitor as it may be causing n/v side effect, changed to crestor monitor intake output Code(s): R11.2 - NAUSEA WITH VOMITING, UNSPECIFIED (7) DVT prophylaxis Code(s): Z29.9 - ENCOUNTER FOR PROPHYLACTIC MEASURES, UNSPECIFIED Visit type - Emergency Visit Emergency Visit: Yes ED Registration Date: 09/30/19 Care time: The patient presented to the Emergency Department on the above date and was hospitalized for further evaluation of their emergent condition. - New Patient This patient is new to me today: No - Critical Care Critical Care patient: No - Discharge Referral Referred to [facility] No
--- NOTE | 2019-10-05 13:56 | PN ---
Progress Note (short form) - Note Progress Note: 64 year old female history of cad s/p stent in 2019 on apsirin and statin. Patient has histor of HTN,DM,HLD Migraine and residual weakness from previous stroke on right side. She had slurring of speech, left face droopiness and dsysbalance. patient was brought fo suspected stroke. Initial ct head was negative and later mri ofbrain was showed left midlbrain and layo acute ischemic stroke. patient is stable, no new symptoms. She was on aspirin and plavix at home, and continue for now. Carotid ultrasound and echo is urnemarkable Her ct head did not show any acute findings. her vomiting is better, she has neck and occpital area pain. NEUROLOGICAL EXAMINATION Alert oriented x 3, speech is slurred vss eomi, pupils reactive no face asymmetry right sided mild weakness mild right facial umn type weakness notifeied ct head unremarkable mri of brain showed there is left pontine and midbrain stroke repeat ct head on october 03 was unremarkable. 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 she was on aspirin , plavix and statin 2. neck pain and occpital area pain seems to be cervicogenic headache 3. recurrent vomiting ? unclear etiology, and ct of abdomen and pelvis pending Plan: continue aspirin and statin - carotid ultrasound finding unremarkable -speech therapy, dvt prophylaxis, pt - hold lipitor as spoken to primary , as suspect vomiting could be secondary to lipitor , swich to crestor - pt for neck pain , may add benadryl at bedtime for cervocogenic headache - life style modifications were discussed again - cardiac monitoring , need loop recording Thanking you so much Arnulfo Wiley MD
[2019-10-05] MEDS ORDERED: ACETAMINOPHEN 325 MG TABLET (FP) PO PRN (14:32)
--- NOTE | 2019-10-05 19:00 | CON.GI ---
Consult Consult Specialty:: coverage for Dr Mazariegos - History of Present Illness History of Present Illness: 64 y/o h/o CAD S/P cath (stent) 2019, HTN, T2DM, HLD, migraine headaches, CVA w/ R sided residual weakness/numbness. was noted to have abdominal pain nausea and vomiting yesterday. This has resolved after receiving zofran. 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 No: Gastritis, GERD, GI Bleed Hepatobiliary: Yes: Cholelithiasis. No: Hepatitis A, Hepatitis B, Hepatitis C Renal/: No: Renal Failure ...: No Endocrine: Yes: Diabetes Mellitus - Past Surgical History Past Surgical History: Yes: Appendectomy Additional Surgical History: c section - Alcohol/Substance Use Hx Alcohol Use: No - Smoking History Smoking history: Never smoked Have you smoked in the past 12 months: No Home Medications - Allergies Allergies/Adverse Reactions: Allergies Allergy/AdvReac Type Severity Reaction Status Date / Time enoxaparin [From Lovenox] Allergy Intermediate Rash Verified 09/30/19 18:47 - Home Medications Home Medications: Ambulatory Orders Metoprolol Succinate [Toprol XL -] 25 mg PO DAILY tab.sr.24h 09/23/18 Lancets [Lancets Thin] 1 each MC DAILY #100 each 09/04/19 Miscellaneous Medical Supply [Glucometer Device] 1 each SQ ASDIR #1 kit 09/04/19 Aspirin [ASA -] 81 mg PO DAILY 09/30/19 Atorvastatin Ca [Lipitor] 40 mg PO HS 09/30/19 Clopidogrel Bisulfate [Plavix] 75 mg PO DAILY 09/30/19 Dapagliflozin Propanediol [Farxiga] 10 mg PO DAILY 09/30/19 Enalapril Maleate [Vasotec -] 20 mg PO DAILY 09/30/19 Meclizine HCl 12.5 mg PO DAILY 09/30/19 Metformin HCl [Glucophage] 500 mg PO HS 09/30/19 Physical Exam-GI Vital Signs: Vital Signs Temperature 98.4 F 10/05/19 18:13 Pulse Rate 63 10/05/19 18:13 Respiratory Rate 20 10/05/19 18:13 Blood Pressure 152/73 10/05/19 18:13 O2 Sat by Pulse Oximetry (%) 98 10/05/19 09:54 Constitutional: Yes: Well Nourished Eyes: Yes: Conjunctiva Clear HENT: Yes: Atraumatic Neck: Yes: Supple Cardiovascular: Yes: Regular Rate and Rhythm Respiratory: Yes: CTA Bilaterally ...Palpate: Yes: Soft. No: Firm/Rigid, Guarding, Hepatomegaly, Mass, Pulsatile Mass, Splenomegaly, Tenderness Labs: CBC, BMP 10/05/19 06:55 10/05/19 06:55 INR, PTT INR 1.02 (0.83-1.09) 09/30/19 11:30 Problem List - Problems (1) Abdominal pain Assessment/Plan: --resolved mutifactorial including secondary to dyspepsia and recent CVA R> CT pending continue Pantoprazole advance diet as tolerated Code(s): R10.9 - UNSPECIFIED ABDOMINAL PAIN Qualifiers: Abdominal location: epigastric Qualified Code(s): R10.13 - Epigastric pain
[2019-10-05] MEDS: ROSUVASTATIN CA 20 MG TABLET (FP) PO SCH (21:35)
--- NOTE | 2019-10-06 06:20 | PN ---
Progress Note, Physician Chief Complaint: No CP/SOB/palps TELE: NSR, APCs History of Present Illness: CAD Prior CVAs Again, acute CVA - Current Medication List Current Medications: Active Medications Acetaminophen (Tylenol -) 650 mg PO Q6H PRN PRN Reason: HEADACHE Last Admin: 10/05/19 14:59 Dose: 650 mg Documented by: Aspirin (Ecotrin -) 81 mg PO DAILY [facility] Last Admin: 10/05/19 09:33 Dose: 81 mg Documented by: Clopidogrel Bisulfate (Plavix -) 75 mg PO DAILY [facility] Last Admin: 10/05/19 09:33 Dose: 75 mg Documented by: Diphenhydramine HCl (Benadryl -) 25 mg PO Q12H PRN PRN Reason: FOR ITCHING Last Admin: 10/03/19 09:49 Dose: 25 mg Documented by: Heparin Sodium (Porcine) (Heparin -) 5,000 unit SQ TID [facility] Last Admin: 10/05/19 21:35 Dose: 5,000 unit Documented by: Insulin Aspart (Novolog Vial Sliding Scale -) 1 vial SQ [facility]; Protocol Last Admin: 10/05/19 21:35 Dose: 2 units Documented by: Metoprolol Succinate (Toprol Xl -) 25 mg PO DAILY [facility] Last Admin: 10/05/19 09:33 Dose: 25 mg Documented by: Pantoprazole Sodium (Protonix Iv) 40 mg IVPUSH DAILY [facility] Last Admin: 10/05/19 09:33 Dose: 40 mg Documented by: Rosuvastatin Calcium (Crestor -) 40 mg PO HS [facility] Last Admin: 10/05/19 21:35 Dose: 40 mg Documented by: Triamcinolone Acetonide (Aristocort 0.1% Ointment -) 1 applic TP DAILY [facility] Last Admin: 10/05/19 09:36 Dose: 1 applic Documented by: - Objective Vital Signs: Vital Signs Temperature 98.5 F 10/06/19 02:53 Pulse Rate 65 10/06/19 02:53 Respiratory Rate 18 10/06/19 02:53 Blood Pressure 129/74 10/06/19 02:53 O2 Sat by Pulse Oximetry (%) 98 10/05/19 21:00 Constitutional: Yes: No Distress, Calm Eyes: Yes: Conjunctiva Clear, EOM Intact Cardiovascular: Yes: Regular Rate and Rhythm Respiratory: Yes: CTA Bilaterally Gastrointestinal: Yes: Soft (nt) Edema: No Neurological: Yes: Alert, Oriented Labs: CBC, BMP 10/05/19 06:55 10/05/19 06:55 INR, PTT INR 1.02 (0.83-1.09) 09/30/19 11:30 - ....Imaging EKG: Image Reviewed Assessment/Plan DATA: echo 08/2019: mild lvh, nl lvef, nl rv, no sig valve path a/p: 64 f hx htn, hld, dm, cad s/p pci 09/2018 after +mibi, cvas (last was 08/2019) here with slurred speech, facial droop. acute cva: -pt here with cva, also here recently for same -echo and carotids unremarkable -tele has been benign on both admits. Will need outpt extended monitoring with event monitor or loop recorder to detect occult afib. cont tele while here. -cont current cardiac meds. neuro following to guide further w/u -Patient sees Dr. Montejo as outpt, will notify team htn: -cont home med hld: -cont statin cad, pci: -no signs acs -borderline trop elevation with nl ckmb, similar to prior baselines, not c/w acs -cont statin, bb, dapt
[2019-10-06] MEDS: HEPARIN NA (PORCINE) 5,000 UNITS/ML 1ML VIAL SQ SCH ×2 (06:43→13:59)
[2019-10-06] MEDS: INSULIN SLIDING SCALE (NOVOLOG) 1 VIAL SQ SCH ×2 (06:44→11:52)
[2019-10-06 07:13] LABS: BASO % 0.8 % (0-2.0); EOS % 1.3 % (0-4.5); HEMOGLOBIN 14.4 GM/dL (10.7-15.3); LYMPH % 41.4 % (8-40); MCH 27.9 pg (25.7-33.7); MCHC 33.6 g/dl (32.0-36.0); MEAN CELL VOLUME 83.2 fl (80-96); MEAN PLT VOLUME 9.9 fl (7.5-11.1); MONO % 8.3 % (3.8-10.2); NEUT % 48.2 % (42.8-82.8); PLATELET COUNT 249 K/MM3 (134-434); RBC 5.17 M/mm3 (3.60-5.2); RDW 13.2 % (11.6-15.6); WHITE BLOOD COUNT 9.2 K/mm3 (4.0-10.0)
[2019-10-06 07:49] LABS: ALBUMIN 3.3 g/dl (3.4-5.0); CALCIUM 9.4 mg/dL (8.5-10.1); MAGNESIUM 2.1 mg/dL (1.8-2.4); POTASSIUM 3.1 mmol/L (3.5-5.1)
[2019-10-06 07:54] LABS: BILIRUBIN,TOTAL 0.5 mg/dL (0.2-1); CREATININE 0.6 mg/dL (0.55-1.3); TOT PROT 6.8 g/dl (6.4-8.2)
[2019-10-06] MEDS ORDERED: PNEUMOC 13-VAL CONJ-DIP CRM/PF 0.5 ML DISP.SYRIN IM ONE (09:00)
[2019-10-06 09:18] LABS: PH,URINE 6.5 (5.0-8.0); URINE APPEARANCE CLEAR; URINE BILIRUBIN NEGATIVE (NEGATIVE); URINE COLOR YELLOW; URINE GLUCOSE (UA) 1+ (NEGATIVE); URINE KETONE NEGATIVE (NEGATIVE); URINE LEUK ESTERASE NEGATIVE (NEGATIVE); URINE NITRITE NEGATIVE (NEGATIVE); URINE PROTEIN NEGATIVE (NEGATIVE); URINE UROBILINOGEN 0.2 mg/dL (0.2-1.0)
[2019-10-06] MEDS: PANTOPRAZOLE SODIUM 40 MG VIAL IVPUSH SCH (09:34)
[2019-10-06] MEDS: ASPIRIN COATED 81 MG TABLET.EC PO SCH (09:35)
[2019-10-06] MEDS: metoPROLOL SUCCINATE 25 MG TAB.SR.24H (FP) PO SCH (09:35)
[2019-10-06] MEDS: CLOPIDOGREL BISULFATE 75 MG TABLET (FP) PO SCH (09:35)
[2019-10-06] MEDS: TRIAMCINOLONE ACET 0.1% OINT 15 GM TUBE TP SCH (09:43)
[2019-10-06] MEDS ORDERED: POTASSIUM CHLORIDE TABS 20 MEQ TABLET.ER (FP) PO ONE (09:45)
[2019-10-06] MEDS ORDERED: PNEUMOCOCCAL 23 VACCINE 0.5 ML VIAL IM ONE (11:00)
--- NOTE | 2019-10-06 11:18 | PN ---
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 Appreciate GI consult with rec to advance diet, as tolerated.
--- NOTE | 2019-10-06 12:13 | PN ---
Physical Exam: SUBJECTIVE: Patient seen and examined OBJECTIVE: Vital Signs Period Temp Pulse Resp BP Sys/Puckett Pulse Ox Last 24 Hr 98.2 F-98.5 F 53-66 16-20 129-157/71-83 98 GENERAL: The patient is awake, alert, and fully oriented, in no acute distress. HEAD: Normal with no signs of trauma. EYES: PERRL, extraocular movements intact, sclera anicteric, conjunctiva clear. No ptosis. ENT: Ears normal, nares patent, oropharynx clear without exudates, moist mucous membranes. NECK: Trachea midline, full range of motion, supple. LUNGS: Breath sounds equal, clear to auscultation bilaterally, no wheezes, no crackles, no accessory muscle use. HEART: Regular rate and rhythm, S1, S2 without murmur, rub or gallop. ABDOMEN: Soft, nontender, nondistended, normoactive bowel sounds, no guarding, no rebound, no hepatosplenomegaly, no masses. EXTREMITIES: 2+ pulses, warm, well-perfused, no edema. NEUROLOGICAL: Cranial nerves II through XII grossly intact. Normal speech, gait not observed. PSYCH: Normal mood, normal affect. SKIN: Warm, dry, normal turgor, no rashes or lesions noted Laboratory Results - last 24 hr 10/06/19 10/06/19 10/06/19 06:15 06:15 07:00 WBC 9.2 RBC 5.17 Hgb 14.4 Hct 43.0 MCV 83.2 MCH 27.9 MCHC 33.6 RDW 13.2 Plt Count 249 MPV 9.9 Absolute Neuts (auto) 4.5 Neutrophils % 48.2 D Lymphocytes % 41.4 H D Monocytes % 8.3 Eosinophils % 1.3 D Basophils % 0.8 Nucleated RBC % 0 Sodium 141 Potassium 3.1 L Chloride 106 Carbon Dioxide 25 Anion Gap 10 BUN 6.0 L Creatinine 0.6 Est GFR (CKD-EPI)AfAm 112.43 Est GFR (CKD-EPI)NonAf 97.01 Random Glucose 152 H Calcium 9.4 Magnesium 2.1 Total Bilirubin 0.5 AST 28 ALT 46 Alkaline Phosphatase 93 Total Protein 6.8 Albumin 3.3 L Urine Color Yellow Urine Appearance Clear Urine pH 6.5 Ur Specific [place] 1.010 Urine Protein Negative Urine Glucose (UA) 1+ H Urine Ketones Negative Urine Blood Negative Urine Nitrite Negative Urine Bilirubin Negative Urine Urobilinogen 0.2 Ur Leukocyte Esterase Negative Active Medications Generic Name Dose Route Start Last Admin Trade Name Freq PRN Reason Stop Dose Admin Acetaminophen 650 mg 10/05/19 14:32 10/05/19 14:59 Tylenol - PO 650 mg Q6H PRN Administration HEADACHE Aspirin 81 mg 10/01/19 10:00 10/06/19 09:35 Ecotrin - PO 81 mg DAILY JUAN Administration Clopidogrel Bisulfate 75 mg 10/01/19 10:00 10/06/19 09:35 Plavix - PO 75 mg DAILY JUAN Administration Diphenhydramine HCl 25 mg 09/30/19 17:43 10/03/19 09:49 Benadryl - PO 25 mg Q12H PRN Administration FOR ITCHING Heparin Sodium (Porcine) 5,000 unit 10/01/19 22:00 10/06/19 06:43 Heparin - SQ 5,000 unit TID JUAN Administration Insulin Aspart 1 vial 10/02/19 22:00 10/06/19 11:52 Novolog Vial Sliding Scale - SQ 4 units ACHS JUAN Administration Protocol Metoprolol Succinate 25 mg 10/01/19 17:15 10/06/19 09:35 Toprol Xl - PO 25 mg DAILY JUAN Administration Pantoprazole Sodium 40 mg 10/04/19 11:00 10/06/19 09:34 Protonix Iv IVPUSH 40 mg DAILY JUAN Administration Rosuvastatin Calcium 40 mg 10/04/19 22:00 10/05/19 21:35 Crestor - PO 40 mg HS JUAN Administration Triamcinolone Acetonide 1 applic 09/30/19 17:30 10/06/19 09:43 Aristocort 0.1% Ointment - TP 1 applic DAILY JUAN Administration ASSESSMENT/PLAN: Problem List - Problems (1) Stroke Code(s): I63.9 - CEREBRAL INFARCTION, UNSPECIFIED Qualifiers: CVA mechanism: unspecified Qualified Code(s): I63.9 - Cerebral infarction, unspecified (2) Difficulty swallowing Code(s): R13.10 - DYSPHAGIA, UNSPECIFIED Qualifiers: Dysphagia type: unspecified Qualified Code(s): R13.10 - Dysphagia, unspecified (3) Elevated troponin I level Code(s): R74.8 - ABNORMAL LEVELS OF OTHER SERUM ENZYMES (4) Slurred speech Code(s): R47.81 - SLURRED SPEECH (5) Type 2 diabetes mellitus Code(s): E11.9 - TYPE 2 DIABETES MELLITUS WITHOUT COMPLICATIONS Qualifiers: Diabetes mellitus intermediate project manager insulin use: without custodial use Diabetes mellitus complication status: with circulatory complication Diabetes mellitus complication detail: with other circulatory complications Qualified Code(s): E11.59 - Type 2 diabetes mellitus with other circulatory complications (6) Nausea & vomiting Code(s): R11.2 - NAUSEA WITH VOMITING, UNSPECIFIED (7) DVT prophylaxis Code(s): Z29.9 - ENCOUNTER FOR PROPHYLACTIC MEASURES, UNSPECIFIED
[2019-10-06] MEDS ORDERED: LIDOCAINE 5% TOPICAL PATCH TP SCH (12:30)
[2019-10-06 12:36] VITALS: BP 158/78; PULSE 60; TEMP 98.5
--- NOTE | 2019-10-06 13:21 | PN ---
Progress Note (short form) - Note Progress Note: 64 year old female history of cad s/p stent in 2019 on apsirin and statin. Patient has histor of HTN,DM,HLD Migraine and residual weakness from previous stroke on right side. She had slurring of speech, left face droopiness and dsysbalance. patient was brought fo suspected stroke. Initial ct head was negative and later mri ofbrain was showed left midlbrain and layo acute ischemic stroke. patient is stable, no new symptoms. She was on aspirin and plavix at home, and continue for now. Carotid ultrasound and echo is urnemarkable Her ct head did not show any acute findings. her vomiting is better, she has neck and occpital area pain. Her pain is better and she is able walk more today. She still continue to have occpital area pain. NEUROLOGICAL EXAMINATION Alert oriented x 3, speech is slurred vss eomi, pupils reactive no face asymmetry right sided mild weakness mild right facial umn type weakness notifeied ct head unremarkable mri of brain showed there is left pontine and midbrain stroke repeat ct head on october 03 was unremarkable. 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 she was on aspirin , plavix and statin 2. neck pain and occpital area pain seems to be cervicogenic headache Plan: continue aspirin and statin - carotid ultrasound finding unremarkable -speech therapy, dvt prophylaxis, pt - hold lipitor as spoken to primary , as suspect vomiting could be secondary to lipitor , swich to crestor - pt for neck pain would add zanaflex 2 mg qhs for hedache prevention, if she continue to have headhace - cardiac monitoring , need loop recording Thanking you so much Arnulfo Wiley MD
--- NOTE | 2019-10-06 13:49 | DS ---
Physical Exam: SUBJECTIVE: Patient seen and examined no further vomiting, no headaches today. some dizziness with position changes, but overall feels better today. She is tolerating diet. OBJECTIVE: Patient is a 64 year old female with a significant past medical history of CAD S/P cath (stent) 2019, HTN, T2DM, HLD, migraine headaches, CVA w/ R sided residual weakness/numbness. Patient admitted on 09/30/2019 after daughter noticed patient was slurring her speech and left side of face was weak and assymetrical as compared to right side. Initial CT head was negative but brain MRI showed left midlbrain and layo acute ischemic stroke. Patient continue to have dyssbalance and slurring of speech. She passed swallowing test. She states she complies with all her home meds. Patient recently at [place] re[facility] after last stroke (08/2019) During hospital stay, patient seen by cardiology and neurology and it is recommended that patient follow up with cardiology for a loop recorder to rule out atrial fibrillation. Telemonitor shows NSR without any events of afib. Per cardiology, patient will need outpatient extended monitoring with event monitor or loop recorder to detect occult atrial fibrillation. Patient developed nausea/vomiting during hospital stay that is now resolved. She was evaluated by GI specialty. Abd/Pelvic CT negative for acute findings. Nausea/vomiting likely secondary to adverse effects of Lipitor and Lipitor discontinued and Lipitor adverse effects added to emar. Patient now on Crestor and seems to be tolerating crestor. HOSPITAL COURSE BY PROBLEM LIST BELOW: Period Temp Pulse Resp BP Sys/Puckett Pulse Ox Last 24 Hr 98.2 F-98.5 F 53-66 16-20 129-158/71-83 98-98 PHYSICAL EXAM GENERAL: The patient is awake, alert, and fully oriented, in no acute distress. speech clear at times, at times slurred. HEAD: Normal with no signs of trauma. EYES: PERRL, extraocular movements intact, sclera anicteric, conjunctiva clear. No ptosis. ENT: Ears normal, nares patent, oropharynx clear without exudates, moist mucous membranes. NECK: Trachea midline, full range of motion, supple. LUNGS: Breath sounds equal, clear to auscultation bilaterally HEART: Regular rate and rhythm ABDOMEN: multiple blotchy areas s/p injections from Lovenox, improving - abd soft, non distended + bowel sounds, no bloating EXTREMITIES: no edema. NEUROLOGICAL: slurred speech, gait not observed. PSYCH: Normal mood, normal affect LABS Laboratory Results - last 24 hr 10/06/19 10/06/19 10/06/19 06:15 06:15 07:00 WBC 9.2 RBC 5.17 Hgb 14.4 Hct 43.0 MCV 83.2 MCH 27.9 MCHC 33.6 RDW 13.2 Plt Count 249 MPV 9.9 Absolute Neuts (auto) 4.5 Neutrophils % 48.2 D Lymphocytes % 41.4 H D Monocytes % 8.3 Eosinophils % 1.3 D Basophils % 0.8 Nucleated RBC % 0 Sodium 141 Potassium 3.1 L Chloride 106 Carbon Dioxide 25 Anion Gap 10 BUN 6.0 L Creatinine 0.6 Est GFR (CKD-EPI)AfAm 112.43 Est GFR (CKD-EPI)NonAf 97.01 Random Glucose 152 H Calcium 9.4 Magnesium 2.1 Total Bilirubin 0.5 AST 28 ALT 46 Alkaline Phosphatase 93 Total Protein 6.8 Albumin 3.3 L Urine Color Yellow Urine Appearance Clear Urine pH 6.5 Ur Specific [place] 1.010 Urine Protein Negative Urine Glucose (UA) 1+ H Urine Ketones Negative Urine Blood Negative Urine Nitrite Negative Urine Bilirubin Negative Urine Urobilinogen 0.2 Ur Leukocyte Esterase Negative HOSPITAL COURSE: Date of Admission:09/30/19 Date of Discharge: 10/06/19 Minutes to complete discharge: 60 Discharge Summary Problems reviewed: Yes Reason For Visit: CEREBROVASULAR ACCIDENT(CVA) Current Active Problems Abdominal pain (Acute) DVT prophylaxis (Acute) Nausea & vomiting (Acute) Stroke (Acute) Condition: Improved - Instructions Diet, Activity, Other Instructions: Ms Ming Salinas: You were admitted on 09/30/2019 for a stroke confirmed by brain MRI. You were evaluated by a neurologist as well as a detonator assembler. It is highly recommended that you follow up with detonator assembler (Dr. Sheets) for a follow up appointment as you will need a loop recorder. What is a loop recorder? A loop recorder is an implantable device that monitors your heart and records your heart rhythm. This will help determine if your heart is beating irregul chacho that may be causing your stroke. It is important that you follow up. MEDICATIONS: Please continue all the medications as outlined in your discharge instructions. FOLLOW UPS: Please follow up with the neurologist (Dr. Wiley), and the detonator assembler (Dr. Sheets) for follow up appointments. Thank you for allowing us to care for you. Referrals: Arnulfo Wiley MD [Staff Physician] - Rupert Sheets MD [Staff Physician] - 1 Week (detonator assembler) Sandor Castro MD [Primary Care Provider] - Disposition: [facility] - Home Medications Comprehensive Discharge Medication List: Ambulatory Orders Metoprolol Succinate [Toprol XL -] 25 mg PO DAILY tab.sr.24h 09/23/18 Lancets [Lancets Thin] 1 each MC DAILY #100 each 09/04/19 Miscellaneous Medical Supply [Glucometer Device] 1 each SQ ASDIR #1 kit 09/04/19 Aspirin [ASA -] 81 mg PO DAILY 09/30/19 Atorvastatin Ca [Lipitor] 40 mg PO HS 09/30/19 Clopidogrel Bisulfate [Plavix] 75 mg PO DAILY 09/30/19 Dapagliflozin Propanediol [Farxiga] 10 mg PO DAILY 09/30/19 Enalapril Maleate [Vasotec -] 20 mg PO DAILY 09/30/19 Meclizine HCl 12.5 mg PO DAILY 09/30/19 Metformin HCl [Glucophage] 500 mg PO HS 09/30/19 Problem List - Problems (1) Stroke Assessment/Plan: Initial ct head was negative but brain MRI showed left midlbrain and layo acute ischemic stroke. Patient continue to have dyssbalance and slurring of speech. she passed swallowing test. She states she complies with home meds. On crestor 20mg daily on ASA and Plavix daily Neuro following BP stable will need outpatient loop recorder to further evaluate on heparin prophylaxis neuro following Code(s): I63.9 - CEREBRAL INFARCTION, UNSPECIFIED Qualifiers: CVA mechanism: unspecified Qualified Code(s): I63.9 - Cerebral infarction, unspecified (2) Difficulty swallowing Assessment/Plan: passed swallow test, diet downgraded to clears after pt had multiple episodes of nausea/vomiting now resolved. now on diabetic diet no difficulty swallowing Code(s): R13.10 - DYSPHAGIA, UNSPECIFIED Qualifiers: Dysphagia type: unspecified Qualified Code(s): R13.10 - Dysphagia, unspecified (3) Elevated troponin I level Assessment/Plan: per cardiology, not consistent with ACS Code(s): R74.8 - ABNORMAL LEVELS OF OTHER SERUM ENZYMES (4) Slurred speech Assessment/Plan: patient with history of multple strokes, will seen by speech and swallow. for rehab placement at [facility]. Code(s): R47.81 - SLURRED SPEECH (5) Type 2 diabetes mellitus Assessment/Plan: hmga1c 9.2%. uncontrolled diabetes. on metformin, but would continue short acting insulin until a1c better controlled. Code(s): E11.9 - TYPE 2 DIABETES MELLITUS WITHOUT COMPLICATIONS Qualifiers: Diabetes mellitus intermodal owner operator truck driver insulin use: without intermodal owner operator truck driver use Diabetes mellitus complication status: with circulatory complication Diabetes mellitus complication detail: with other circulatory complications Qualified Code(s): E11.59 - Type 2 diabetes mellitus with other circulatory complications (6) Nausea & vomiting Assessment/Plan: nausea/vomiting without diarrhea abdominal xray negative, abd u/s negative, abd ct shows gallstone, not acute stanislaw. stop lipitor as it may be causing n/v side effect, changed to crestor Code(s): R11.2 - NAUSEA WITH VOMITING, UNSPECIFIED (7) DVT prophylaxis Code(s): Z29.9 - ENCOUNTER FOR PROPHYLACTIC MEASURES, UNSPECIFIED This patient is new to me today: No Emergency Visit: Yes ED Registration Date: 09/30/19 Care time: The patient presented to the Emergency Department on the above date and was hospitalized for further evaluation of their emergent condition. Critical Care patient: No - Discharge Referral Referred to [facility] No
[2019-10-06] MEDS ORDERED: LIDOCAINE PATCH REMOVAL MC SCH (22:00)
== END 2019-10-06 16:05 | DRG 45 ==
LOC: JER 10:52 → JERBED 12:56 → J4S 15:47
PROVIDERS: ATTEND Nurse Practitioner Family
DX: I63.9 Cerebral infarction, unspecified (principal); I69.351 Hemiplegia and hemiparesis following cerebral infarction affecting right dominant side; R47.01 Aphasia; E78.5 Hyperlipidemia, unspecified; G43.909 Migraine, unspecified, not intractable, without status migrainosus; I10 Essential (primary) hypertension; R11.10 Vomiting, unspecified; R29.810 Facial weakness; R10.9 Unspecified abdominal pain; T46.6X5A Adverse effect of antihyperlipidemic and antiarteriosclerotic drugs, initial encounter; E11.59 Type 2 diabetes mellitus with other circulatory complications; R47.81 Slurred speech
CPT/HCPCS: 36415; 70450-TC; 70551-TC; 74019-TC-FY; 74177-TC; 76705-TC; 80048; 80053; 80061; 81003; 82550; 82553; 82962; 83036; 83721; 83735; 84443; 84484; 85025; 85610; 85730; 86850; 86900; 86901; 90732; 93005; 93010; 93880-TC; 97116-GP; 97161-GP; 99285-25; G0009; J1644; Q9967; U0003

== ENCOUNTER 2024-02-16 13:57 | Observation (INO) | payer OTHER ==
[2024-02-16] MEDS ORDERED: CLOPIDOGREL BISULFATE 75 MG TABLET (FP) ONE (15:40)
[2024-02-16] MEDS: CLOPIDOGREL BISULFATE 300 MG TABLET PO ONE (15:48)
[2024-02-16 15:50] LABS: BASO % 0.5 % (0-2.0); EOS % 0.9 % (0-4.5); HEMATOCRIT 45.3 % (32.4-45.2); HEMOGLOBIN 14.8 GM/dL (10.7-15.3); LYMPH % 25.7 % (8-40); MCH 28.1 pg (25.7-33.7); MCHC 32.6 g/dl (32.0-36.0); MEAN CELL VOLUME 86.3 fl (80-96); MEAN PLT VOLUME 9.2 fl (7.5-11.1); MONO % 5.6 % (3.8-10.2); NEUT % 67.3 % (42.8-82.8); PLATELET COUNT 291 10^3/uL (134-434); RBC 5.25 M/mm3 (3.60-5.2); RDW 13.5 % (11.6-15.6); WHITE BLOOD COUNT 8.8 K/mm3 (4.0-10.0)
[2024-02-16 15:58] LABS: CHLORIDE 106 mmol/L (98-107); POTASSIUM 4.5 mmol/L (3.5-5.1); SODIUM 139 mmol/L (136-145)
[2024-02-16 16:01] LABS: ALBUMIN 3.9 g/dl (3.4-5.0); ANION GAP 8 mmol/L (4-13); CALCIUM 10.2 mg/dL (8.5-10.1); CO2 25 mmol/L (21-32)
[2024-02-16 16:02] LABS: BLOOD UREA NITROGEN 12.4 mg/dL (7-18); GLUCOSE,RANDOM 110 mg/dL (74-106)
[2024-02-16 16:04] LABS: SGOT/AST 20 U/L (15-37); SGPT/ALT 25 U/L (13-61)
[2024-02-16 16:05] LABS: CREATININE 0.8 mg/dL (0.55-1.3)
[2024-02-16 16:06] LABS: CHOLESTEROL 154 mg/dL (50-200); TOT PROT 7.8 g/dl (6.4-8.2)
[2024-02-16 16:07] LABS: BILIRUBIN,TOTAL 0.6 mg/dL (0.2-1); LDL CHOLESTEROL (ONLY SJRH) 80 mg/dL (5-100)
[2024-02-16 16:07] LABS: INR 0.95 (0.83-1.09); PROTHROMBIN TIME (PATIENT) 10.8 SEC (9.7-13.0)
[2024-02-16 16:08] LABS: ALK PHOS 139 U/L (45-117); HDL CHOLESTEROL 52 mg/dL (40-60)
[2024-02-16 16:10] LABS: ACTIVATED PTT 35.8 SECONDS (25.2-36.5)
[2024-02-16 17:15] LABS: PH,URINE 6.5 (5.0-8.0); URINE APPEARANCE CLOUDY; URINE BILIRUBIN NEGATIVE (NEGATIVE); URINE COLOR YELLOW; URINE GLUCOSE (UA) 3+ (NEGATIVE); URINE KETONE NEGATIVE (NEGATIVE); URINE LEUK ESTERASE NEGATIVE (NEGATIVE); URINE NITRITE NEGATIVE (NEGATIVE); URINE PROTEIN NEGATIVE (NEGATIVE); URINE UROBILINOGEN 0.2 mg/dL (0.2-1.0)
[2024-02-16] MEDS ORDERED: ACETAMINOPHEN INJECTION 100 ML ONE (20:11)
[2024-02-16] MEDS: ACETAMINOPHEN 1000 MG/100 ML BAG IVPB ONE (21:07)
[2024-02-16 22:00] LABS: MAGNESIUM 1.7 mg/dL (1.8-2.4)
[2024-02-16 22:03] LABS: PHOSPHOROUS 2.4 mg/dL (2.5-4.9)
[2024-02-16] MEDS: INSULIN ASPART SLIDING SCALE (NOVOLOG) 1 VIAL SQ SCH (22:17)
[2024-02-17 08:21] LABS: HEMATOCRIT 44.6 % (32.4-45.2); HEMOGLOBIN 14.5 GM/dL (10.7-15.3); MCH 27.7 pg (25.7-33.7); MCHC 32.4 g/dl (32.0-36.0); MEAN CELL VOLUME 85.5 fl (80-96); MEAN PLT VOLUME 9.1 fl (7.5-11.1); PLATELET COUNT 286 10^3/uL (134-434); RBC 5.22 M/mm3 (3.60-5.2); RDW 13.7 % (11.6-15.6); WHITE BLOOD COUNT 7.2 K/mm3 (4.0-10.0)
[2024-02-17 08:44] LABS: POTASSIUM 4.8 mmol/L (3.5-5.1)
[2024-02-17 08:47] LABS: CALCIUM 9.7 mg/dL (8.5-10.1)
[2024-02-17 08:48] LABS: BLOOD UREA NITROGEN 12.1 mg/dL (7-18)
[2024-02-17 08:51] LABS: CREATININE 0.8 mg/dL (0.55-1.3)
[2024-02-17] MEDS: metoPROLOL SUCCINATE 25 MG TAB.SR.24H (FP) PO SCH (10:20)
[2024-02-17] MEDS: DOCUSATE SODIUM 100 MG CAPSULE (FP) PO PRN (10:21)
[2024-02-17] MEDS: ASPIRIN COATED 81 MG TABLET.EC PO SCH (10:21)
[2024-02-17] MEDS: CLOPIDOGREL BISULFATE 75 MG TABLET (FP) PO SCH (10:21)
[2024-02-17] MEDS: EZETIMIBE 10 MG TABLET (FP) PO SCH (10:22)
[2024-02-17] MEDS: ACETAMINOPHEN 325 MG TABLET (FP) PO PRN (18:18)
[2024-02-17] MEDS: ROSUVASTATIN CA 20 MG TABLET PO SCH (21:32)
[2024-02-18 07:21] LABS: BASO % 0.8 % (0-2.0); EOS % 2.4 % (0-4.5); HEMOGLOBIN 15.1 GM/dL (10.7-15.3); MCH 28.1 pg (25.7-33.7); MCHC 32.9 g/dl (32.0-36.0); MEAN CELL VOLUME 85.6 fl (80-96); MEAN PLT VOLUME 8.9 fl (7.5-11.1); MONO % 7.1 % (3.8-10.2); NEUT % 47.7 % (42.8-82.8); PLATELET COUNT 292 10^3/uL (134-434); RBC 5.37 M/mm3 (3.60-5.2); RDW 13.9 % (11.6-15.6); WHITE BLOOD COUNT 7.6 K/mm3 (4.0-10.0)
[2024-02-18 07:38] LABS: POTASSIUM 4.3 mmol/L (3.5-5.1)
[2024-02-18 07:45] LABS: CALCIUM 9.7 mg/dL (8.5-10.1)
[2024-02-18 07:46] LABS: ALBUMIN 3.7 g/dl (3.4-5.0); BLOOD UREA NITROGEN 13.1 mg/dL (7-18)
[2024-02-18 07:49] LABS: CREATININE 0.8 mg/dL (0.55-1.3)
[2024-02-18 07:50] LABS: BILIRUBIN,TOTAL 0.6 mg/dL (0.2-1); TOT PROT 7.5 g/dl (6.4-8.2)
[2024-02-18 13:08] VITALS: BP 139/79; PULSE 88; RESP 16; TEMP 98.1
[2024-02-18 15:08] VITALS: BMI 24.6
== END 2024-02-18 13:55 | disposition home or self-care (01) ==
LOC: JER 13:57 → JERBED 15:41 → INTOOBSV 15:41 → J4S 21:50
PROVIDERS: ADMIT Student in an Organized Health Care Education/Training Program; ATTEND Family Medicine
PROC: 3E033NZ Introduction of Analgesics, Hypnotics, Sedatives into Peripheral Vein, Percutaneous Approach (ICD-10-PCS; principal; 2024-02-16)
PROC: 3E013VG Introduction of Insulin into Subcutaneous Tissue, Percutaneous Approach (ICD-10-PCS; 2024-02-16)
DX: I25.10 Atherosclerotic heart disease of native coronary artery without angina pectoris (principal); I69.351 Hemiplegia and hemiparesis following cerebral infarction affecting right dominant side; I10 Essential (primary) hypertension; E78.5 Hyperlipidemia, unspecified; E11.9 Type 2 diabetes mellitus without complications; G43.909 Migraine, unspecified, not intractable, without status migrainosus; K59.00 Constipation, unspecified; Z90.49 Acquired absence of other specified parts of digestive tract; Z88.8 Allergy status to other drugs, medicaments and biological substances
CPT/HCPCS: 36415; 70450-TC; 70496-TC; 70498-TC; 70551-TC; 80048; 80053; 80061; 81003; 82550; 82962; 83036; 83735; 84100; 84484; 85025; 85027; 85610; 85730; 86850; 86900; 86901; 87086; 93005; 93010; 93306-TC; 93880-TC; 96372; 96374; 97116-GP; 97162-GP; 99285-25; G0378; J0131; Q9967

== ENCOUNTER 2024-09-04 16:10 | Inpatient (IN) | payer OTHER ==
[2024-09-04 18:02] LABS: ABSOLUTE IMMATURE GRANULOCYTES 0.04 x10^3/uL (0.0-0.031); BASOPHILS # 0.11 x10^3/uL (0.01-0.08); EOSINOPHIL % 0.9 % (0.7-5.8); EOSINOPHILS # 0.09 x10^3/uL (0.04-0.36); HEMATOCRIT 40.4 % (34.1-44.9); HEMOGLOBIN 13.3 g/dL (11.2-15.7); MCHC 32.9 g/dl (32.2-35.5); MEAN CELL VOLUME 82.8 fl (79.4-94.8); MEAN PLT VOLUME 11.5 fl (9.4-12.3); MONOCYTE # 0.59 x10^3/uL (0.24-0.86); MONOCYTE % 5.9 % (4.7-12.5); PLATELET COUNT 295 x10^3/uL (182-369); RDW 12.7 % (12.4-16.4)
[2024-09-04 18:28] LABS: CHLORIDE 104 mmol/L (98-107); POTASSIUM 5.1 mmol/L (3.5-5.1); SODIUM 135 mmol/L (136-145)
[2024-09-04 18:31] LABS: ALBUMIN 3.5 g/dl (3.4-5.0); ANION GAP 6 mmol/L (4-13); BLOOD UREA NITROGEN 14.3 mg/dL (7-18); CO2 25 mmol/L (21-32); GLUCOSE,RANDOM 326 mg/dL (74-106)
[2024-09-04 18:34] LABS: CREATININE 0.8 mg/dL (0.55-1.3); SGOT/AST 24 U/L (15-37); SGPT/ALT 35 U/L (13-61)
[2024-09-04 18:35] LABS: BILIRUBIN,TOTAL 0.4 mg/dL (0.2-1); LDL CHOLESTEROL (ONLY SJRH) 84 mg/dL (5-100); TOT PROT 7.2 g/dl (6.4-8.2)
[2024-09-04 18:36] LABS: ALK PHOS 184 U/L (45-117); CHOLESTEROL 144 mg/dL (50-200); HDL CHOLESTEROL 53 mg/dL (40-60)
[2024-09-04 19:03] LABS: ACTIVATED PTT 25.5 SECONDS (25.2-36.5); INR 1.02 (0.83-1.09); PROTHROMBIN TIME (PATIENT) 11.1 SEC (9.7-13.0)
[2024-09-05 07:55] LABS: ABSOLUTE IMMATURE GRANULOCYTES 0.03 x10^3/uL (0.0-0.031); EOSINOPHIL % 1.9 % (0.7-5.8); EOSINOPHILS # 0.18 x10^3/uL (0.04-0.36); HEMATOCRIT 46.3 % (34.1-44.9); HEMOGLOBIN 15.2 g/dL (11.2-15.7); MCHC 32.8 g/dl (32.2-35.5); MEAN CELL VOLUME 83.1 fl (79.4-94.8); MONOCYTE # 0.68 x10^3/uL (0.24-0.86); MONOCYTE % 7.1 % (4.7-12.5); PLATELET COUNT 276 x10^3/uL (182-369); RDW 12.7 % (12.4-16.4)
[2024-09-05 09:42] LABS: BLOOD UREA NITROGEN 12.3 mg/dL (7-18); CREATININE 0.7 mg/dL (0.55-1.3); POTASSIUM 4.7 mmol/L (3.5-5.1)
[2024-09-05 15:42] VITALS: BMI 24.7
[2024-09-05] MEDS: EZETIMIBE 10 MG TABLET (FP) PO ONE (23:07)
[2024-09-06] MEDS: metFORMIN HCL 500 MG TABLET (FP) PO SCH (06:37)
[2024-09-06] MEDS: EMPAGLIFLOZIN (JARDIANCE) 25 MG TABLET PO SCH (06:38)
[2024-09-06] MEDS: INSULIN ASPART SLIDING SCALE (NOVOLOG) 1 VIAL SQ SCH (06:38)
[2024-09-06] MEDS: INSULIN GLARGINE (LANTUS) 100 UNITS/ML UNITS SQ SCH (06:38)
[2024-09-06] MEDS: CLOPIDOGREL BISULFATE 75 MG TABLET (FP) PO SCH (09:43)
[2024-09-06] MEDS: EZETIMIBE 10 MG TABLET (FP) PO SCH (09:43)
[2024-09-07] MEDS: ROSUVASTATIN CA 20 MG TABLET PO SCH (22:08)
[2024-09-08 02:12] VITALS: RESP 16
[2024-09-08 09:02] VITALS: BP 116/57; PULSE 83; TEMP 97.9
[2024-09-08 11:27] LABS: CHLORIDE 105 mmol/L (98-107); POTASSIUM 4.4 mmol/L (3.5-5.1); SODIUM 139 mmol/L (136-145)
[2024-09-08 11:29] LABS: CALCIUM 10.5 mg/dL (8.5-10.1)
[2024-09-08 11:30] LABS: ALBUMIN 3.7 g/dl (3.4-5.0); ANION GAP 9 mmol/L (4-13); BLOOD UREA NITROGEN 19.1 mg/dL (7-18); CO2 25 mmol/L (21-32); GLUCOSE,RANDOM 219 mg/dL (74-106)
[2024-09-08 11:33] LABS: SGOT/AST 25 U/L (15-37); SGPT/ALT 30 U/L (13-61)
[2024-09-08 11:35] LABS: BILIRUBIN,TOTAL 0.7 mg/dL (0.2-1); TOT PROT 7.4 g/dl (6.4-8.2)
[2024-09-08 11:38] LABS: ALK PHOS 143 U/L (45-117)
== END 2024-09-08 13:44 | disposition home or self-care (01) | DRG 65 ==
LOC: JER 16:10 → JERBED 17:05 → J4S 20:11
PROVIDERS: ADMIT Family Medicine; ATTEND Family Medicine
DX: I63.89 Other cerebral infarction (principal); I24.89 Other forms of acute ischemic heart disease; I69.354 Hemiplegia and hemiparesis following cerebral infarction affecting left non-dominant side; I25.10 Atherosclerotic heart disease of native coronary artery without angina pectoris; I10 Essential (primary) hypertension; E78.5 Hyperlipidemia, unspecified; R29.701 NIHSS score 1; R47.81 Slurred speech; G43.909 Migraine, unspecified, not intractable, without status migrainosus; Z95.5 Presence of coronary angioplasty implant and graft; R91.8 Other nonspecific abnormal finding of lung field; E11.65 Type 2 diabetes mellitus with hyperglycemia; E11.40 Type 2 diabetes mellitus with diabetic neuropathy, unspecified; R00.0 Tachycardia, unspecified
CPT/HCPCS: 36415; 70450-TC; 70496-TC; 70498-TC; 70551-TC; 71250-TC; 76775-TC; 80048; 80053; 80061; 82550; 82962; 83036; 83735; 84443; 84484; 85025; 85610; 85730; 93005; 93010; 93306-TC; 97116-GP; 97161-GP; 99291; Q9967